=== PATIENT | female | born 1980 | race Caucasian/White ===

== ENCOUNTER 2019-11-25 10:25 | Emergency (ER) | payer OTHER, SELFPAY ==
[2019-11-25 10:47] VITALS: BP 131/74; PULSE 99; RESP 16; TEMP 36.9; O2SAT 95; BMI 32.3
--- NOTE | 2019-11-25 11:26 | ED.FEMALEGU ---
HPI - Female Genitourinary General Chief complaint: Urogenital-Female Stated complaint: VAGINAL ISSUES Time Seen by Provider: 11/25/19 11:02 Source: patient Mode of arrival: ambulatory Limitations: no limitations History of Present Illness MD elicited complaint: genital itching Onset (ago): year(s) (pt reports intermittently happening x 3 years worse resolves and returns shortly after worse within past week ) Location of symptoms: external genitalia Severity: moderate Severity scale (1-10): 5 Quality of pain: burning Consistency: constant Vaginal discharge: none Vaginal bleeding: none Urinary symptoms: Dysuria Exacerbating factors: urination Relieving factors: none Associated symptoms: denies other symptoms Treatment prior to arrival: other (prescribed topical vaginal creams ) Sexual activity: Yes Patient : No Related Data Home Medications Medication Instructions Recorded Confirmed betamethasone valerate applic TOPICAL BID 11/25/19 clobetasol TOPICAL BID 11/25/19 Previous Rx's Medication Instructions Recorded fluconazole [Diflucan] 150 mg PO DAILY 2 Days #2 tab 11/25/19 metronidazole [Flagyl] 500 mg PO BID 7 Days #14 tab 11/25/19 nitrofurantoin monohyd/m-cryst 100 mg PO BID 7 Days #14 cap 11/25/19 [Macrobid] valacyclovir [Valtrex] 1,000 mg PO DAILY 5 Days #5 tab 11/25/19 Allergies Allergy/AdvReac Type Severity Reaction Status Date / Time No Known Allergies Allergy Verified 11/25/19 10:47 Review of Systems Review of Systems: Yes all other systems are reviewed and are negative Constitutional: Constitutional: Denies chills and Denies fever(s) Eyes: Eyes: Reports as per HPI ENT: Reports as per HPI Cardiovascular: Cardiovascular: Reports as per HPI Respiratory: Respiratory: Reports as per HPI Gastrointestinal: Gastrointestinal: Denies abdominal pain, Denies diarrhea, Denies nausea and Denies vomiting Genitourinary: Genitourinary: Denies abnormal menses, Denies abnormal vaginal bleeding, Denies amenorrhea, Denies metrorrhagia, Denies hematuria, Denies urinary frequency, Denies difficulty voiding, Denies post void dribbling, Reports genital pruritis, Denies genital lesions, Denies dyspareunia, Reports dysuria, Denies pelvic pain, Denies sexual dysfunction, Denies flank pain, Denies urinary incontinence, Denies urinary hesitancy, Denies urinary urgency, Denies vaginal discharge, Denies vaginal dryness, Denies vaginal odor and Reports vaginal pruritus Musculoskeletal: Musculoskeletal: Reports as per HPI Integumentary/Breasts: Skin/Breast: Reports as per HPI Neurologic: Reports as per HPI Psychiatric: Psychiatric: Reports as per HPI Endocrine: Endocrine: Reports as per HPI Hematologic/Lymphatic: Hematologic/Lymphatic: Reports as per HPI Allergic/Immunologic: Allergic/Immunologic: Reports as per HPI PMFSH Past Medical History Medical History Burning reflux Tonsillectomy planned Surgical History H/O abdominoplasty History of gastric surgery Hx of breast reduction, elective LAP-BAND surgery status Tubal ligation status Social History Social History Alcohol intake: never Smoking Status: Never smoker Use of substances other than those prescribed or required for medical reasons: No Advance Directives: No Advance Directives Information Provided: No Physical Exam Vital Signs and I&O and Narrative: Vital Signs and I&O: Vital Signs Temp 98.4 F 11/25/19 14:00 Pulse 74 11/25/19 14:00 Resp 16 11/25/19 14:00 BP 119/71 11/25/19 14:00 Pulse Ox 100 11/25/19 14:00 Intake & Output 11/24/19 11/25/19 11/25/19 18:59 06:59 18:59 Weight 72.575 kg Body Mass Index 32.3 Const: General: cooperative, healthy appearing, comfortable, no acute distress, well developed, alert, awake and Physically active Nutritional Appearance: average body habitus Orientation/consciousness: patient oriented x3 Limitations: no limitations HENMT: Head: Yes normal to inspection Mouth: Normal oral and palatal mucosa present and moist mucous membranes Eyes: General: appearance normal, both eyes and all related structures Visual Barkley: normal visual barkley by confrontation Pupils: Equal, round and reactive pupils present EOM: EOMs intact bilaterally Neck: Neck: Yes normal visual inspection, Yes full ROM, Yes no lymphadenopathy, Yes no meningeal signs and Yes supple Resp: Effort & Inspection: normal respiratory effort Cardio: Rate: regular rate Rhythm: regular rhythm Heart sounds: S1 normal heart sound present and S2 normal heart sound present Peripheral pulses: Peripheral pulses 2+ throughout GI: Inspection: Yes normal to inspection Palpation (GI): Soft to palpation, nontender, no guarding, No hepatosplenomegaly present, no masses and No Rebound tenderness present Percussion: Yes normal to percussion Auscultation: normal bowel sounds Rectal Exam - Female: deferred : General: Yes bladder normal to palpation and Yes no CVA tenderness External Female Exam: externally tender (superficial excorations noted ) Speculum Exam - Vagina: normal palpation and normal vaginal discharge (white thick nonodorous ) Speculum Exam - Cervix: normal appearance of the cervix, normal palpation, Cervical os closed, no lesions and nontender Bimanual exam- vagina & uterus: normal bimanual exam, normal palpation, uterine size normal, bladder normal to palpation, consistency normal, normal palpation, uterine mobility normal, uterine shape normal, No Cervical tenderness present and no cervical motion tenderness Bimanual Exam- Adnexa, other: normal adnexae Back/Spine/Pelvis: Back: no CVA tenderness Skin: General skin exam: no rashes or lesions noted Neuro: General: patient oriented x3 and no meningeal signs Cranial nerves: Yes Equal, round and reactive pupils present Course Course Hospital Course: Pt c vaginal itching for a few days using prescribed creams that are not providing any symptomatic relief. Reports that this has been happening over 3 years and they do not believe to know why it is happening to the patient per patient. Denies any thoughts of STDs although would like to be tested and treated for everything today. On speculum exam patient was noted to have a thick white non odorous discharge. - Plan: Speculum exam with cultures for gonorrhea / chlamydia/Trichomonas / yeast/bacterial vaginosis collected along with a UA and urine . Will treat for bacterial vaginosis /yeast, gonorrhea and Chlamydia. Patient also admits to having history of herpes therefore would like a prescription if she has an outbreak. It does not appear that the patient has a outbreak at this time. Instructions to return if any new or worsening symptoms to follow-up with primary care provider/ OBGYN. Patient understands agrees with this plan. MDM - Female Genitourinary Lab Data Attestation: I reviewed the patient's lab results. Labs: Lab Results 11/25/19 11/25/19 Range/Units 13:36 13:37 Urine Color YELLOW Urine Appearance CLEAR Urine pH 6.0 (5.0-8.0) Ur Specific [place] >= 1.030 H (1.005-1.025) Urine Protein NEG (NEG-TRACE) MG/DL Urine Glucose (UA) NEG (NEG) MG/DL Urine Ketones NEG (NEG) MG/DL Urine Blood NEG (NEG) Urine Nitrite NEG (NEG) Ur Leukocyte Esterase NEG (NEG) Urine Test NEGATIVE (NEGATIVE) Discharge Plan Discharge Clinical Impression: Bacterial vaginosis, Urinary tract infection Patient Disposition: Home, Self-Care Instructions: Bacterial Vaginosis (ED), Sexually Transmitted Diseases (ED), Urinary Tract Infection in Women (ED) Prescriptions: New nitrofurantoin monohyd/m-cryst [Macrobid] 100 mg capsule 100 mg PO BID 7 Days Qty: 14 RF: 0 fluconazole [Diflucan] 150 mg tablet 150 mg PO DAILY 2 Days Qty: 2 RF: 0 valacyclovir [Valtrex] 1 gram tablet 1,000 mg PO DAILY 5 Days Qty: 5 RF: 0 metronidazole [Flagyl] 500 mg tablet 500 mg PO BID 7 Days Qty: 14 RF: 0 No Action betamethasone valerate 0.1 % cream topical BID RF: 0 clobetasol 0.05 % cream topical BID RF: 0
[2019-11-25 14:00] VITALS: BP 119/71; PULSE 74; RESP 16; TEMP 36.9; O2SAT 100
[2019-11-25 14:09] LABS: Glucose Urine UA NEG (NEG); Leukocyte Esterase Urine NEG (NEG); Nitrite Urine NEG (NEG); Specific Gravity - Urine >= 1.030 (1.005-1.025); Urine Blood NEG (NEG); Urine Ketones NEG (NEG); Urine Protein NEG (NEG-TRACE)
[2019-11-25 14:11] LABS: Appearance Urine CLEAR; Color Urine YELLOW
[2019-11-25 14:18] LABS: UPreg QC Valid YES; Urine Pregnancy NEGATIVE (NEGATIVE)
[2019-11-25] MEDS: Azithromycin 500 MG TABLET 1000 MG PO (15:09)
[2019-11-25] MEDS: cefTRIAXone sodium 250 MG VIAL IM (15:09)
[2019-11-25 18:49] LABS: CT PCR NOT DETECTED (Not Detect.); NG PCR NOT DETECTED (Not Detect.)
[2019-11-26 12:33] LABS: BV Int Neg Control Negative (Negative); BV Int Pos Control Positive (Positive)
== END 2019-11-25 15:30 | disposition home or self-care (01) ==
PROVIDERS: Physician Assistant Medical; Emergency Provider Emergency Medicine; PCP Internal Medicine
DX: N76.0 Acute vaginitis (principal); N39.0 Urinary tract infection, site not specified; Z98.84 Bariatric surgery status; Z79.899 Other long term (current) drug therapy
CPT/HCPCS: 36415; 81003; 81025; 87480; 87491; 87510; 87591; 87660; 96372; 99284; J0696

== ENCOUNTER → 2019-12-13 08:32 | Outpatient (BNVA) | payer OTHER, SELFPAY | PROVIDERS: PCP Internal Medicine; Referring Provider Internal Medicine; Visit Provider Advanced Practice Midwife | DX: A60.00 Herpesviral infection of urogenital system, unspecified (principal); L30.9 Dermatitis, unspecified; E66.9 Obesity, unspecified; Z68.32 Body mass index [BMI] 32.0-32.9, adult; Z71.3 Dietary counseling and surveillance | CPT/HCPCS: 99213 ==

== ENCOUNTER 2020-02-08 09:18 | Outpatient (REF) | payer OTHER, SELFPAY ==
[2020-02-09 09:41] LABS: BV Int Neg Control Negative (Negative); BV Int Pos Control Positive (Positive)
[2020-02-14 20:18] LABS: HPV mRNA E6/E7 rflx Not Detected (Not Detected)
== END 2020-02-08 09:19 | disposition home or self-care (01) ==
LOC: HO.LAB 09:18
PROVIDERS: PCP Internal Medicine; Visit Provider Advanced Practice Midwife
DX: Z01.419 Encounter for gynecological examination (general) (routine) without abnormal findings (principal); N63.10 Unspecified lump in the right breast, unspecified quadrant; N89.8 Other specified noninflammatory disorders of vagina
CPT/HCPCS: 87480; 87510; 87624; 87625; 87660; 88142

== ENCOUNTER 2020-03-13 12:49 | Outpatient (REF) | payer OTHER, SELFPAY ==
--- NOTE | 2020-03-13 12:53 | MM_ITS ---
EXAMINATION: MM DIAGNOSTIC DIGITAL BREAST TOMOSYNTHESIS, BILATERAL US DIAGNOSTIC ULTRASOUND BREAST, RIGHT CLINICAL INFORMATION: Clinical exam notes palpable area lateral right breast. History bilateral breast reduction 2018. Due for yearly. The lifetime risk of breast cancer based on the Tyrer-Cuzick Model is 10%. COMPARISON: Mammography: 02/26/2019 TECHNIQUE: Digital breast tomosynthesis is performed in both the craniocaudal and mediolateral oblique views along with computer-aided detection (CAD). Synthesized 2D images are generated from the tomosynthesis. Ultrasound right breast is targeted to the area of clinical concern outer breast. Grayscale imaging and color Doppler are performed without and with harmonics. Patient is able to direct attention to area of recent clinical exam concern. FINDINGS: There are scattered areas of fibroglandular density (ACR BI-RADS breast composition Category b). Parenchymal pattern is similar to prior exam. There is no interval mass or architectural abnormality. No developing density. There is some benign calcifications again seen anterior breast, some are dermal and consistent with the reduction mammoplasty. There are no significant changes. Ultrasound right breast demonstrates no cystic or solid mass or architectural abnormality. No skin thickening or edema tracking in the soft tissue planes. Results are discussed with the patient at time of visit. MM/MM diagnostic mammo BI IMPRESSION: 1. No mammographic evidence of malignancy. 2. No significant changes from prior exam. 3. Unremarkable targeted right breast ultrasound. ASSESSMENT: BI-RADS 2: Benign RECOMMENDATION: 1. Patient should be managed based on the clinical impression. If clinically indicated, further evaluation may be considered with surgical consult. Decision to proceed with biopsy should be based on clinical grounds and degree of clinical concern. 2. Otherwise, routine annual screening mammography. This patient's information was entered into a reminder system with a target due date for their next mammogram.
== END 2020-03-13 12:50 | disposition home or self-care (01) ==
LOC: HO.MAMMO 12:49
PROVIDERS: PCP Internal Medicine; Visit Provider Advanced Practice Midwife
DX: N63.0 Unspecified lump in unspecified breast (principal)
CPT/HCPCS: 76642; 77066

== ENCOUNTER → 2020-04-04 10:52 | Outpatient (BNVA) | payer OTHER, SELFPAY | PROVIDERS: PCP Internal Medicine; Visit Provider Advanced Practice Midwife | DX: Z76.89 Persons encountering health services in other specified circumstances (principal) | CPT/HCPCS: Q3014 ==

== ENCOUNTER 2020-04-18 10:21 | Emergency (ER) | payer OTHER, SELFPAY ==
[2020-04-18 10:38] VITALS: BP 116/88; PULSE 114; RESP 16; TEMP 38.1; O2SAT 96; BMI 32.3
--- NOTE | 2020-04-18 11:15 | ED_ITS ---
HPI - General Adult General Chief complaint: Upper Respiratory Symptoms <HUMBERTO Montoya - Last Filed: 04/18/20 11:40> Stated complaint: fever, body aches <HUMBERTO Montoya - Last Filed: 04/18/20 11:40> Time Seen by Provider: 04/18/20 11:02 <HUMBERTO Montoya - Last Filed: 04/18/20 11:40> Source: patient <HUMBERTO Montoya Last Filed: 04/18/20 11:40> Mode of arrival: ambulatory <HUMBERTO Montoya - Last Filed: 04/18/20 11:40> Limitations: no limitations <HUMBERTO Montoya Last Filed: 04/18/20 11:40> History of Present Illness HPI narrative: 39 y/o female presenting with fever, chills, body aches, muscle aches for the last 2-3 days. She reports a max temp of 103.1 at home. She has been taking Tylenol with improvement in the fevers. Her is home with similar symptoms but more mild. She is not coughing, has no SOB or chest pain. <HUMBERTO Montoya - Last Filed: 04/18/20 11:40> MD complaint: COVID symptoms <HUMBERTO Montoya - Last Filed: 04/18/20 11:40> Onset (ago): day(s) (2-3) <HUMBERTO Monotya - Last Filed: 04/18/20 11:40> Location: head, chest, back, upper extremity and lower extremity <HUMBERTO Montoya Last Filed: 04/18/20 11:40> Radiation: non-radiation <HUMBERTO Montoya Last Filed: 04/18/20 11:40> Severity: moderate <HUMBERTO Montoya Last Filed: 04/18/20 11:40> Quality: aching <HUMBERTO Montoya Last Filed: 04/18/20 11:40> Pain Consistency: constant <HUMBERTO Montoya Last Filed: 04/18/20 11:40> Relieving factors: medication <HUMBERTO Montoya Last Filed: 04/18/20 11:40> Associated symptoms: fever/chills, headaches, loss of appetite and weakness <HUMBERTO Montoya - Last Filed: 04/18/20 11:40> Treatments prior to arrival: NSAID <HUMBERTO Montoya - Last Filed: 04/18/20 11:40> Related Data Home medications: Home Medications Medication Instructions Recorded Confirmed clobetasol TOPICAL BID 11/25/19 hydroxyzine pamoate 25 mg capsule 25 mg PO BEDTIME PRN 02/08/20 Previous Rx's Medication Instructions Recorded fluconazole [Diflucan] 150 mg PO DAILY 2 Days #2 tab 11/25/19 metronidazole [Flagyl] 500 mg PO BID 7 Days #14 tab 11/25/19 nitrofurantoin monohyd/m-cryst 100 mg PO BID 7 Days #14 cap 11/25/19 [Macrobid] valacyclovir [Valtrex] 1,000 mg PO DAILY 5 Days #5 tab 11/25/19 omeprazole 20 mg capsule,delayed 40 mg PO DAILY #180 cap 12/08/19 release hydrocortisone valerate 0.2 % 1 applic TOPICAL ONCE #15 g 12/13/19 topical ointment valacyclovir 500 mg tablet 500 mg PO BID #30 tab 12/13/19 betamethasone valerate 0.1 % 1 appl TOPICAL BID #45 g 02/08/20 topical cream phentermine 37.5 mg capsule 37.5 mg PO DAILY PRN 30 Days #25 03/12/20 cap <HUMBERTO Montoya - Last Filed: 04/18/20 11:40> Allergies/adverse reactions: Allergies Allergy/AdvReac Type Severity Reaction Status Date / Time No Known Allergies Allergy Verified 02/08/20 09:28 <HUMBERTO Montoya - Last Filed: 04/18/20 11:40> Review of Systems Review of Systems: Constitutional: + Fever, + Chills ENT/Mouth: + sore throat, No Rhinorrhea, No Swallowing Difficulty Eyes: No Eye Pain, No Swelling, No Redness Cardiovascular: No Chest Pain, No SOB, No Orthopnea, No Edema Respiratory: No Cough, No Sputum, No Wheezing, No dyspnea Gastrointestinal: No Nausea, No Vomiting, No Diarrhea, No abdominal Pain Genitourinary: No Dysuria, No Urinary Frequency, No Hematuria Musculoskeletal: + joint pain, + Myalgias Skin: No Skin Lesions, No rash Neuro: No Weakness, No Numbness, No Dizziness, + Headache Heme/Lymph: No Bruising, No Lymphadenopathy <HUMBERTO Montoya - Last Filed: 04/18/20 11:40> [facility] Past Medical History Medical History: Medical History Burning reflux Tonsillectomy planned <HUMBERTO Montoya - Last Filed: 04/18/20 11:40> Surgical History: Surgical History H/O abdominoplasty History of bilateral breast reduction surgery History of section History of gastric surgery History of hernia repair History of tonsillectomy Hx of breast reduction, elective LAP-BAND surgery status Tubal ligation status <HUMBERTO Montoya - Last Filed: 04/18/20 11:40> Family History Family History: Family History Father Stroke Mother Lung cancer Maternal Grandmother Throat cancer Lung cancer Paternal Grandmother Stomach cancer Maternal Grandfather No problems noted. Paternal Grandfather No problems noted. Maternal Aunt Ovarian cancer Paternal Aunt Ovarian cancer Breast cancer <HUMBERTO Montoya - Last Filed: 04/18/20 11:40> Social History Social History: Social History Alcohol intake: never Smoking Status: Never smoker Smoked in Last 30 Days: No Use of substances other than those prescribed or required for medical reasons: No Advance Directives: No Advance Directives Information Provided: No <HUMBERTO Montoya - Last Filed: 04/18/20 11:40> Physical Exam Vital Signs: Vital Signs: Last Vital Signs Temp 100.6 F H 04/18/20 10:38 Pulse 114 H 04/18/20 10:38 Resp 16 04/18/20 10:38 BP 116/88 04/18/20 10:38 Pulse Ox 96 04/18/20 10:38 Body Mass Index 32.3 Appearance: Alert. Oriented X3. Appears unwell. Eyes: Pupils equal, round and reactive to light. ENT: Pharynx normal. Neck: Normal inspection. Neck supple. CVS: tachycardic, regular rhythm. Pulses normal. Respiratory: No respiratory distress. Breath sounds normal. Abdomen: Soft and nontender. +BS x4 Skin: Skin warm and dry. Normal skin color. Normal skin turgor. No rashes. Extremities: No lower extremity edema. Neuro: Oriented X 3. No motor deficit. No sensory deficit. <HUMBERTO Montoya - Last Filed: 04/18/20 11:40> Vital Signs: Last Vital Signs Temp 100.6 F H 04/18/20 10:38 Pulse 114 H 04/18/20 10:38 Resp 16 04/18/20 10:38 BP 116/88 04/18/20 10:38 Pulse Ox 96 04/18/20 10:38 Body Mass Index 32.3 <Robe Crystal MD - Last Filed: 05/08/20 07:53> Course Course Course Narrative: 39 y/o female presenting with COVID symptoms, fever to 103.1 at home. low grade fever here with associated tachycardia. She is not SOB or having any chest pain. COVID is positive. She was counseled on her diagnosis, management and warning signs to return to the hospital. She is stable for d/c. <HUMBERTO Montoya - Last Filed: 04/18/20 11:40> I have reviewed the chart <Robe Crystal MD - Last Filed: 05/08/20 07:53> Medical Decision Making Lab Data Labs: Lab Results 04/18/20 Range/Units 11:19 COVID-19 (DEENA) Positive A (Negative) COVID-19 Clin Com See Note <HUMBERTO Montoya - Last Filed: 04/18/20 11:40> Lab Results 04/18/20 Range/Units 11:19 COVID-19 (DEENA) Positive A (Negative) COVID-19 Clin Com See Note <Robe Crystal MD - Last Filed: 05/08/20 07:53> Critical Care Time Critical Care Time Critical Care Time: No <HUMBERTO Montoya - Last Filed: 04/18/20 11:40> Discharge Plan Discharge Clinical Impression: COVID-19 <HUMBERTO Montoya - Last Filed: 04/18/20 11:40> Patient Disposition: Home, Self-Care <HUMBERTO Montoya - Last Filed: 04/18/20 11:40> Instructions: COVID-19 (Coronavirus Disease 2019) (ED) <HUMBERTO Montoya Last Filed: 04/18/20 11:40> Additional Instructions: You were found to be COVID-19 POSITIVE today. Your oxygen levels were normal. Rest. Drink plenty of fluids. Do not go out in public for the next 10 days. Take over the counter cold/flu medications as needed for your symptoms. Take Tylenol and/or Motrin as needed for fevers and body aches. Follow up with your doctor this week. If you shortness of breath worsens , if you develop difficulty breathing or any other concerning symptom come back to the ER for further evaluation. <HUMBERTO Montoya - Last Filed: 04/18/20 11:40> Prescriptions: No Action omeprazole 20 mg capsule,delayed release(DR/EC) 40 mg PO DAILY Qty: 180 RF: 2 phentermine 37.5 mg capsule 37.5 mg PO DAILY PRN (Reason: weight gain) 30 Days Qty: 25 RF: 0 clobetasol 0.05 % cream topical BID RF: 0 nitrofurantoin monohyd/m-cryst [Macrobid] 100 mg capsule 100 mg PO BID 7 Days Qty: 14 RF: 0 fluconazole [Diflucan] 150 mg tablet 150 mg PO DAILY 2 Days Qty: 2 RF: 0 valacyclovir [Valtrex] 1 gram tablet 1,000 mg PO DAILY 5 Days Qty: 5 RF: 0 metronidazole [Flagyl] 500 mg tablet 500 mg PO BID 7 Days Qty: 14 RF: 0 hydrocortisone valerate 0.2 % ointment 1 applic topical ONCE Qty: 15 RF: 1 valacyclovir [Valtrex] 500 mg tablet 500 mg PO BID Qty: 30 RF: 1 hydroxyzine pamoate 25 mg capsule 25 mg PO BEDTIME PRNRF: 0 betamethasone valerate 0.1 % cream 1 appl topical BID Qty: 45 RF: 1 <HUMBERTO Montoya Last Filed: 04/18/20 11:40> Interventions: ED Discharge Assessment Last Done: 04/18/20 11:37 <HUMBERTO Montoya - Last Filed: 04/18/20 11:40> Discharge Date/Time: 04/18/20 11:42 <HUMBERTO Montoya - Last Filed: 04/18/20 11:40>
[2020-04-18 11:34] LABS: COVID-19 Test Positive (Negative)
== END 2020-04-18 11:42 | disposition home or self-care (01) ==
PROVIDERS: Physician Assistant; Emergency Provider Emergency Medicine; PCP Internal Medicine
DX: U07.1 COVID-19 (principal); R50.9 Fever, unspecified; R00.0 Tachycardia, unspecified
CPT/HCPCS: 36415; 87635; 99282; 99284

== ENCOUNTER 2020-12-07 10:14 | Outpatient (REF) | payer OTHER, SELFPAY ==
[2020-12-07 10:38] LABS: MANUAL DIFF FLAG NO
[2020-12-07 11:06] LABS: Basophils Absolute Auto 0.1 X10*3/uL (0.0-0.2); Basophils Percent Auto 0.6 % (0-2); Eosinophils Percent Auto 0.5 % (0-4); Hematocrit 39.1 % (37-47); Hemoglobin 12.5 g/dl (12.0-16.0); Imm Gran Abs Auto 0.05 X10*3/uL (0.00-0.03); Imm Gran Pct Auto 0.6 % (0.0-0.4); Lymphocytes Absolute Auto 2.1 X10*3/uL (1.2-4.9); Lymphocytes Percent Auto 25.7 % (20-40); Mean Corpuscular Hemoglobin 28.3 pg (27.0-33.0); Mean Corpuscular Volume 88.5 fL (80-98); Mean Platelet Volume 10.2 fL (9.4-12.3); Monocytes Absolute Auto 0.6 X10*3/uL (0.1-1.2); Monocytes Percent Auto 7.4 % (2-11); Neutrophils Absolute Auto 5.3 X10*3/uL (2.0-8.3); Neutrophils Percent Auto 65.2 % (45-73); Platelet Count 347 X10*3/uL (160-400); Red Blood Count 4.42 X10*6/uL (4.20-5.50); Red Cell Distribution Width 14.6 % (11.0-16.0); White Blood Count 8.1 X10*3/uL (4.8-10.8)
[2020-12-07 11:32] LABS: Alanine Aminotransferase 15 U/L (0-31); Albumin Level 4.2 g/dL (3.5-5.0); Alkaline Phosphatase 46 U/L (39-117); Anion Gap 13 (12-20); Aspartate Amino Transferase 15 U/L (5-31); Bilirubin Total 0.5 mg/dL (0.0-1.0); Blood Urea Nitrogen 10 mg/dL (9-16); Calcium 9.9 mg/dL (8.4-10.2); Carbon Dioxide 25 mmol/L (22-29); Chloride 107 mmol/L (96-108); Cholesterol 162 mg/dL; Estimated Glomerular Filt Rate > 60; Glucose Fasting 88 mg/dL (60-99); HDL Cholesterol 40 mg/dL; Iron 105 mcg/dL (30-160); LDL Cholesterol Calculated 94 mg/dl; Percent Iron Saturation 27 % (15-50); Potassium 4.6 mmol/L (3.3-5.1); Sodium 140 mmol/L (135-145); Total Iron Binding Capacity 396 mcg/dL (228-428); Total Protein 6.7 g/dL (6.5-8.0); Triglycerides 143 mg/dL; Unsaturated Iron Binding 291 ug/dL
[2020-12-13 16:15] LABS: Vitamin D 25-OH, D2 <4 ng/mL; Vitamin D 25-OH, D3 32 ng/mL; Vitamin D 25-OH, Total 32 ng/mL (30-100)
== END 2020-12-07 10:15 | disposition home or self-care (01) ==
LOC: HO.LAB 10:14
PROVIDERS: Internal Medicine; PCP Student in an Organized Health Care Education/Training Program; Visit Provider Student in an Organized Health Care Education/Training Program
DX: E66.9 Obesity, unspecified (principal); Z68.32 Body mass index [BMI] 32.0-32.9, adult; E78.5 Hyperlipidemia, unspecified; D64.9 Anemia, unspecified; E55.9 Vitamin D deficiency, unspecified
CPT/HCPCS: 36415; 80053; 80061; 82306; 83540; 85025

== ENCOUNTER 2021-03-07 14:05 | Outpatient (REF) | payer OTHER, SELFPAY ==
--- NOTE | ~2021-03-07 | XR_ITS ---
EXAMINATION: XR SHOULDER, RIGHT XR CERVICAL SPINE XR FOOT, LEFT INDICATION: Radiculopathy. COMPARISON: None. TECHNIQUE: 4 views of the right shoulder, 3 views of the cervical spine, 3 views of the left foot. FINDINGS: Four views of the right shoulder do not demonstrate acute fracture or dislocation. No acute finding. No bony erosion or osteopenia. No significant degenerative changes. Three views of the cervical spine demonstrate scoliosis convex right. There is evidence of early degeneration at C5-C6 and C6-C7 with bony spurring anterior and posterior. No obvious listhesis. No compression injury. Three views of the left foot do not demonstrate evidence for an acute fracture or dislocation. No bony erosion. Moderate spurring at the insertion of the plantar aponeuroses on the calcaneus. XR/XR shoulder RT min 2V IMPRESSION: Some mild findings, as described above. Scoliosis in the cervical spine with some early degenerative changes. No listhesis or compression injury.
--- NOTE | ~2021-03-07 | XR_ITS ---
EXAMINATION: XR SHOULDER, RIGHT XR CERVICAL SPINE XR FOOT, LEFT INDICATION: Radiculopathy. COMPARISON: None. TECHNIQUE: 4 views of the right shoulder, 3 views of the cervical spine, 3 views of the left foot. FINDINGS: Four views of the right shoulder do not demonstrate acute fracture or dislocation. No acute finding. No bony erosion or osteopenia. No significant degenerative changes. Three views of the cervical spine demonstrate scoliosis convex right. There is evidence of early degeneration at C5-C6 and C6-C7 with bony spurring anterior and posterior. No obvious listhesis. No compression injury. Three views of the left foot do not demonstrate evidence for an acute fracture or dislocation. No bony erosion. Moderate spurring at the insertion of the plantar aponeuroses on the calcaneus. XR/XR cervical spine 3V IMPRESSION: Some mild findings, as described above. Scoliosis in the cervical spine with some early degenerative changes. No listhesis or compression injury.
--- NOTE | ~2021-03-07 | XR_ITS ---
EXAMINATION: XR SHOULDER, RIGHT XR CERVICAL SPINE XR FOOT, LEFT INDICATION: Radiculopathy. COMPARISON: None. TECHNIQUE: 4 views of the right shoulder, 3 views of the cervical spine, 3 views of the left foot. FINDINGS: Four views of the right shoulder do not demonstrate acute fracture or dislocation. No acute finding. No bony erosion or osteopenia. No significant degenerative changes. Three views of the cervical spine demonstrate scoliosis convex right. There is evidence of early degeneration at C5-C6 and C6-C7 with bony spurring anterior and posterior. No obvious listhesis. No compression injury. Three views of the left foot do not demonstrate evidence for an acute fracture or dislocation. No bony erosion. Moderate spurring at the insertion of the plantar aponeuroses on the calcaneus. XR/XR foot LT 2V IMPRESSION: Some mild findings, as described above. Scoliosis in the cervical spine with some early degenerative changes. No listhesis or compression injury.
== END 2021-03-07 14:06 | disposition home or self-care (01) ==
LOC: HO.XRAY 14:05
PROVIDERS: PCP Internal Medicine; Visit Provider Internal Medicine
DX: M54.12 Radiculopathy, cervical region (principal); M75.41 Impingement syndrome of right shoulder; M79.672 Pain in left foot
CPT/HCPCS: 72040; 73030; 73620

== ENCOUNTER 2021-04-13 13:01 | Emergency (ER) | payer OTHER, SELFPAY ==
--- NOTE | 2021-04-13 | ECG_ITS ---
Test Reason : chest tightness Blood Pressure : / mmHG Vent. Rate : 121 BPM Atrial Rate : 121 BPM P-R Int : 136 ms QRS Dur : 070 ms QT Int : 346 ms P-R-T Axes : 073 056 043 degrees QTc Int : 491 ms Sinus tachycardia Nonspecific ST and T wave abnormality When compared to the previous EKG of No significant changes seen Referred By: Generic ED Physician Electronically Signed By:HARSH DIMAS MD
--- NOTE | ~2021-04-13 | XR_ITS ---
EXAMINATION: XR CHEST CLINICAL INFORMATION: Cough COMPARISON: Previous chest x-ray most recent June 2017 TECHNIQUE: 2 views of the chest were obtained. FINDINGS: The cardiac and mediastinal contours are stable. The lungs are clear. There is no pleural effusion or pneumothorax. There is mild curvature of the midthoracic spine to the right. Gastric lap band is no longer seen. There are surgical clips under the left hemidiaphragm. XR/XR chest 2V IMPRESSION: No evidence for acute disease in the chest.
[2021-04-13 13:16] VITALS: BP 137/72; PULSE 119; RESP 16; TEMP 36.9; O2SAT 97; BMI 33.5
--- NOTE | 2021-04-13 13:33 | ED_ITS ---
HPI - URI/Sore Throat General Chief Complaint: Upper Respiratory Symptoms Stated Complaint: Fever/Sore throat/D[place]reah Time Seen by Provider: 04/13/21 13:32 Source: patient Mode of arrival: ambulatory Limitations: no limitations History of Present Illness HPI Narrative: 40-year-old female had sore throat yesterday and had positive home test COVID. No fever, no chills, no sick contact. 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 Related Data Previous Rx's Medication Instructions Recorded omeprazole 20 mg capsule,delayed 40 mg PO DAILY #180 cap 07/31/20 release phentermine 37.5 mg capsule 37.5 mg PO DAILY PRN 30 Days #25 01/26/21 cap hydroxyzine pamoate 25 mg capsule 25 mg PO BEDTIME PRN 90 Days #90 04/01/21 cap ferrous sulfate 325 mg (65 mg 325 mg PO DAILY 90 Days #90 tab 04/02/21 iron) tablet Allergies Allergy/AdvReac Type Severity Reaction Status Date / Time No Known Allergies Allergy Verified 03/07/21 11:05 Review of Systems Review of Systems: All other systems are reviewed and are negative Constitutional: Reports as per HPI and Reports no additional constitutional complaints Eyes: Reports as per HPI and Reports no additional eye complaints Reports system reviewed and no additional complaints, except as documented Cardiovascular: Reports as per HPI and Reports no additional cardiovascular complaints Respiratory: Reports as per HPI and Reports no additional respiratory complaints Gastrointestinal: Reports as per HPI and Reports no additional gastrointestinal complaints Genitourinary: Reports no additional female genitourinary complaints Musculoskeletal: Reports no additional musculoskeletal complaints Skin/Breast: Reports system reviewed and no additional complaints, except as docu Psychiatric: Reports no additional psychiatric complaints Endocrine: Reports no additional endocrine complaints Hematologic/Lymphatic: Reports no additional hematologic/lymphatic complaints Allergic/Immunologic: Reports no additional allergic/immunologic complaints Reports system reviewed and no additional complaints, except as documented and Reports Abnormal speech present [facility] Past Medical History Medical History Burning reflux Class 1 obesity with body mass index (BMI) of 32.0 to 32.9 in adult GERD (gastroesophageal reflux disease) Hand numbness Hand pain Iron deficiency anemia due to chronic blood loss Left foot pain Leg pain Right arm pain Scoliosis Skin lesions Tonsillectomy planned Surgical History H/O abdominoplasty History of bilateral breast reduction surgery History of section History of gastric surgery History of hernia repair History of tonsillectomy Hx of breast reduction, elective LAP-BAND surgery status Tubal ligation status Family History Family History Father Stroke Mother Lung cancer Maternal Grandmother Throat cancer Lung cancer Paternal Grandmother Stomach cancer Maternal Grandfather No problems noted. Paternal Grandfather No problems noted. Maternal Aunt Ovarian cancer Paternal Aunt Ovarian cancer Breast cancer Social History Social History Housing: House Alcohol intake: never Patient Tobacco Use Status: Never used Tobacco e-Cigarette/Vaping Use: Never Used Second Hand Smoke Exposure: No Advance Directives: No Advance Directives Information Provided: No Patient : No service: No Current occupational status: disabled Physical Exam Vital Signs: Vital Signs: Last Vital Signs Temp 98.5 F 04/13/21 13:16 Pulse 119 H 04/13/21 13:16 Resp 16 04/13/21 13:16 BP 137/72 04/13/21 13:16 Pulse Ox 97 04/13/21 13:16 BMI result Body Mass Index 33.5 Vital signs have been reviewed as appeared to be correct. Blood pressure normal. Heart rate elevated. Respiration rate normal. Temperature normal. Oxygen saturation normal. Appearance: Alert. Oriented X3. No acute distress. Head: Normal external exam. Normocephalic. Atraumatic. No Chin signs noted. No raccoon eyes noted Eyes: PERRLA. EOMI. Conjunctiva and sclera normal. Eyelids normal. ENT: TM's Normal. Pharynx normal. Uvula midline. Moist mucous membranes. No trismus noted. No drooling noted. No muffled voice noted. Neck: Normal inspection. Neck supple. FROM. No adenopathy. Thyroid Normal. No meningeal signs. No neck mass noted. CVS: Normal heart rate and rhythm. Heart sound normal. No murmurs noted. Pulses normal throughout. Respiratory: No respiratory distress. Painless inspiration. Breath sounds normal. No wheezes/rales/rhonchi noted. Chest nontender. No accessory muscle usage noted or decreased air movement noted. Abdomen: Soft and nontender. Bowel sounds normal in all 4 quadrants. No distention noted. No organomegaly noted. No visible injury noted. Back: No CVA tenderness. Full range of motion noted. Skin: Skin warm and dry. Normal skin color. Normal skin turgor. No rashes/lesions/lacerations noted. Extremities: No lower extremity edema. Extremities exhibit normal range of motion. Extremities nontender. Neuro: Oriented X 3. Cranial nerve exam: II-XII are grossly intact No motor deficit. No sensory deficit. Reflexes normal. Course Course Course Narrative: Assessment and plan. 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 MDM - URI/Sore Throat Imaging Data Chest x-ray: Attestation: I personally reviewed and interpreted this imaging study as follows: Radiologist's impression: No acute thoracic pathology. Discharge Plan Discharge Clinical Impression: COVID-19 Patient Disposition: Home, Self-Care Instructions: COVID-19 (Coronavirus Disease 2019) (ED) Prescriptions: No Action omeprazole 20 mg capsule,delayed release(DR/EC) 40 mg PO DAILY Qty: 180 2RF hydroxyzine pamoate 25 mg capsule 25 mg PO BEDTIME PRN (Reason: itching) 90 Days Qty: 90 0RF ferrous sulfate 325 mg (65 mg iron) tablet 325 mg PO DAILY 90 Days Qty: 90 0RF phentermine 37.5 mg capsule 37.5 mg PO DAILY PRN (Reason: weight gain) 30 Days Qty: 25 0RF Referrals: Catrina Montanez MD [Primary Care Provider] - 2 days Stand Alone Forms: Work/School Release
== END 2021-04-13 14:14 | disposition home or self-care (01) ==
PROVIDERS: Emergency Provider Emergency Medicine; PCP Internal Medicine
DX: U07.1 COVID-19 (principal)
CPT/HCPCS: 71046; 93005; 99283; 99284

== ENCOUNTER → 2021-06-18 13:22 | Outpatient (BNVA) | payer OTHER, SELFPAY | PROVIDERS: PCP Internal Medicine; Referring Provider Internal Medicine; Visit Provider Physician Assistant Surgical | DX: E66.9 Obesity, unspecified (principal); Z68.34 Body mass index [BMI] 34.0-34.9, adult; Z98.84 Bariatric surgery status; Z71.3 Dietary counseling and surveillance | CPT/HCPCS: 99212 ==

== ENCOUNTER 2021-07-10 08:44 | Outpatient (REF) | payer OTHER, SELFPAY ==
--- NOTE | ~2021-07-10 | MM_ITS ---
EXAMINATION: MM DIAGNOSTIC DIGITAL BREAST TOMOSYNTHESIS, BILATERAL US DIAGNOSTIC ULTRASOUND BREAST, RIGHT CLINICAL INFORMATION: 40-year-old with pea-sized nodule noted by patient. Prior history bilateral reduction mammoplasty, 2018. TC score 14%. COMPARISON: Mammography: 03/13/2020, 02/26/2019. TECHNIQUE: Digital breast tomosynthesis is performed in both the craniocaudal and mediolateral oblique views along with computer-aided detection (CAD). Synthesized 2D images are generated from the tomosynthesis. Ultrasound right breast is targeted to the area of clinical concern outer breast. Patient is able to point to area of concern at time of imaging. Grayscale imaging and color Doppler are performed without and with harmonics. FINDINGS: There are scattered areas of fibroglandular density (ACR BI-RADS breast composition Category b). Parenchymal pattern is similar to prior studies. There is no developing density or interval mass or architectural abnormality. No skin thickening or coarsening of the Kevin's ligaments. The axilla are unremarkable. There are no significant changes. Ultrasound demonstrates no cystic or solid mass. There is no architectural abnormality or focal duct ectasia. No skin thickening or edema tracking in soft tissue planes. Results are discussed with the patient at time of visit. There is no mammographic or ultrasound correlate for patient's symptoms. Patient should be managed based on the clinical impression. If clinically indicated, further evaluation may be considered with surgical consult. Decision to proceed with biopsy should be based on clinical grounds and degree of clinical concern. MM/MM tomosynthesis diagnostic BI IMPRESSION: -No mammographic evidence of malignancy. -Unremarkable right breast ultrasound. ASSESSMENT: BI-RADS 1: Negative RECOMMENDATION: 1. Patient should be managed based on the clinical impression. If clinically indicated, further evaluation may be considered with surgical consult. Decision to proceed with biopsy should be based on clinical grounds and degree of clinical concern. 2. Otherwise, routine annual screening mammography. This patient's information was entered into a reminder system with a target due date for their next mammogram.
== END 2021-07-10 08:45 | disposition home or self-care (01) ==
LOC: HO.MAMMO 08:44
PROVIDERS: PCP Internal Medicine; Visit Provider Nurse Practitioner Family
DX: N64.4 Mastodynia (principal); N63.13 Unspecified lump in the right breast, lower outer quadrant
CPT/HCPCS: 76642; 77062; 77066

== ENCOUNTER 2021-07-24 08:05 | Outpatient (REF) | payer OTHER, SELFPAY ==
--- NOTE | 2021-07-24 08:11 | EMG_ITS ---
This is a 40-year-old woman with a 3 month history of pain, numbness, and tingling in both upper extremities, right greater than left. Has nocturnal symptoms. No other medical problems. PHYSICAL EXAMINATION: On examination, she is alert, oriented with normal intellectual functions. Normal neurological examination. Normal reflexes. No Phalen or Tinel sign. IMPRESSION: Carpal tunnel syndrome. Nerve conduction EMG study: Moderate carpal tunnel syndrome on the right, early carpal tunnel syndrome on the left. Normal EMG of the right C5-T1 innervated muscles. MD ISHAN Patel/DIANNA / [id number]
== END 2021-07-24 08:06 | disposition home or self-care (01) ==
LOC: HO.NEURO 08:05
PROVIDERS: PCP Internal Medicine; Visit Provider Internal Medicine
DX: R20.0 Anesthesia of skin (principal)
CPT/HCPCS: 95885; 95913

== ENCOUNTER → 2021-07-30 08:41 | Outpatient (BNVA) | payer OTHER, SELFPAY | PROVIDERS: PCP Internal Medicine; Referring Provider Internal Medicine; Visit Provider Physician Assistant Surgical | DX: E66.9 Obesity, unspecified (principal); Z68.33 Body mass index [BMI] 33.0-33.9, adult; Z98.84 Bariatric surgery status | CPT/HCPCS: 99212 ==

== ENCOUNTER 2021-11-13 09:51 | Outpatient (REF) | payer OTHER, SELFPAY ==
[2021-11-13 10:05] LABS: MANUAL DIFF FLAG NO
[2021-11-13 10:51] LABS: Basophils Absolute Auto 0.1 X10*3/uL (0.0-0.2); Basophils Percent Auto 0.7 % (0-2); Eosinophils Absolute Auto 0.1 X10*3/uL (0.0-0.4); Eosinophils Percent Auto 0.7 % (0-4); Hematocrit 39.2 % (37.0-47.0); Hemoglobin 12.5 g/dl (12.0-16.0); Imm Gran Abs Auto 0.04 X10*3/uL (0.00-0.03); Imm Gran Pct Auto 0.5 % (0.0-0.4); Lymphocytes Absolute Auto 1.8 X10*3/uL (1.2-4.9); Lymphocytes Percent Auto 21.7 % (20-40); Mean Corpuscular HGB Conc 31.9 g/dl (31.0-35.0); Mean Corpuscular Hemoglobin 27.9 pg (27.0-33.0); Mean Corpuscular Volume 87.5 fL (80.0-98.0); Mean Platelet Volume 10.1 fL (9.4-12.3); Monocytes Absolute Auto 0.6 X10*3/uL (0.1-1.2); Monocytes Percent Auto 6.6 % (2-11); Neutrophils Absolute Auto 5.8 x10*3/uL (2.0-8.3); Neutrophils Percent Auto 69.8 % (45-73); Platelet Count 398 X10*3/uL (160-400); Red Blood Count 4.48 X10*6/uL (4.20-5.50); Red Cell Distribution Width 13.7 % (11.0-16.0); White Blood Count 8.3 X10*3/uL (4.8-10.8)
[2021-11-13 11:01] LABS: Estimated Average Glucose 108 mg/dL; Hemoglobin A1c % 5.4 %
[2021-11-13 11:19] LABS: Alanine Aminotransferase 28 U/L (0-31); Albumin Level 4.6 g/dL (3.5-5.0); Alkaline Phosphatase 54 U/L (39-117); Anion Gap 16 (12-20); Aspartate Amino Transferase 27 U/L (5-31); Bilirubin Total 0.5 mg/dL (0.0-1.0); Blood Urea Nitrogen 12 mg/dL (9-16); C Reactive Protein 0.19 mg/dL (< or = 0.50); Carbon Dioxide 25 mmol/L (22-29); Chloride 102 mmol/L (96-108); Cholesterol 207 mg/dL; Estimated Glomerular Filt Rate > 60; Glucose Fasting 92 mg/dL (60-99); HDL Cholesterol 52 mg/dL; Iron 91 mcg/dL (30-160); LDL Cholesterol Calculated 128 mg/dl; Percent Iron Saturation 20 % (15-50); Potassium 4.4 mmol/L (3.3-5.1); Sodium 139 mmol/L (135-145); Total Iron Binding Capacity 461 mcg/dL (228-428); Total Protein 7.5 g/dL (6.5-8.0); Triglycerides 139 mg/dL; Unsaturated Iron Binding 370 ug/dL
[2021-11-13 11:45] LABS: Ferritin 49 ng/mL (10-250); TSH reflex Free T4 1.15 uIU/mL (0.32-4.0); Vitamin D 25-OH Total 43.5 ng/mL (>30)
[2021-11-13 12:01] LABS: Folate > 20.0 ng/mL (> or = 4.0); Vitamin B12 768 pg/mL (200-900)
[2021-11-13 12:16] LABS: Insulin 20 uU/mL (2-29)
[2021-11-14 14:57] LABS: PTHI 48 pg/mL (16-77)
[2021-11-17 16:06] LABS: Zinc 76 mcg/dL (60-130)
[2021-11-18 06:21] LABS: Vitamin B1 19 nmol/L (8-30)
[2021-11-19 17:27] LABS: Vitamin A 59 mcg/dL (38-98)
== END 2021-11-13 09:52 | disposition home or self-care (01) ==
LOC: HO.LAB 09:51
PROVIDERS: Absent Provider Internal Medicine; PCP Internal Medicine; Visit Provider Physician Assistant Surgical
DX: Z00.00 Encounter for general adult medical examination without abnormal findings (principal); E66.9 Obesity, unspecified; Z90.3 Acquired absence of stomach [part of]
CPT/HCPCS: 36415; 80048; 80053; 80061; 82306; 82607; 82728; 82746; 83036; 83525; 83540; 83970; 84425; 84443; 84590; 84630; 85025; 86140; 99212

== ENCOUNTER → 2022-07-30 13:15 | Outpatient (BNVA) | payer OTHER, SELFPAY | PROVIDERS: PCP Internal Medicine; Visit Provider Physician Assistant Surgical | DX: E66.9 Obesity, unspecified (principal); K21.9 Gastro-esophageal reflux disease without esophagitis; Z90.3 Acquired absence of stomach [part of]; Z68.35 Body mass index [BMI] 35.0-35.9, adult | CPT/HCPCS: 99212 ==

== ENCOUNTER → 2022-08-07 08:42 | Outpatient (BNVA) | payer OTHER, SELFPAY | PROVIDERS: PCP Internal Medicine; Visit Provider Advanced Practice Midwife ==

== ENCOUNTER 2022-09-19 11:31 | Emergency (ER) | payer OTHER, SELFPAY ==
[2022-09-19 11:36] VITALS: BP 141/98; PULSE 100; RESP 18; TEMP 37.1; O2SAT 98; BMI 34.7
--- NOTE | 2022-09-19 11:37 | ED_ITS ---
HPI - General Adult General Chief complaint: Headache Stated complaint: Headache Time Seen by Provider: 09/19/22 13:59 Source: patient Mode of arrival: ambulatory Limitations: no limitations History of Present Illness HPI narrative: 41-year-old female with history of migraines, obesity, scoliosis, iron deficiency anemia, GERD presenting today with a complaint of migraine x3 days. Headache is continuous and pounding in character and isolated to the occipital region, no radiation, rates it 10/10 . Pain is worse upon lying down and relieved upon sitting up. She states this feels similar to her typical migrain es however is lasting longer and has not been responsive to her medications (sumatriptan and topiramate). Associated symptoms include blurred vision in her right eye intermittently, photophobia, nausea without vomiting and dizziness. Denies scalp tenderness, jaw claudication, double vision, neck stiffness, fever/chills, chest pain, shortness of breath. Related Data Home Medications Medication Instructions Recorded Confirmed celebrate bariatric MVI PO DAILY 06/18/21 07/30/22 celebrate Alhaji + D PO BID 07/30/21 07/30/22 Previous Rx's Medication Instructions Recorded omeprazole 20 mg capsule,delayed 40 mg PO DAILY #180 caps 01/03/22 release ferrous sulfate 325 mg (65 mg 325 mg PO DAILY 90 days #90 tabs 06/29/22 iron) tablet hydroxyzine pamoate 25 mg capsule 25 mg PO BEDTIME PRN itching 90 06/29/22 days #90 caps sucralfate 100 mg/mL oral 10 ml PO BID #414 mL 07/30/22 suspension topiramate 25 mg tablet 25 mg PO BEDTIME 90 days #90 tabs 08/13/22 phentermine 37.5 mg tablet 37.5 mg PO DAILY 25 days #25 tabs 08/21/22 sumatriptan succinate 25 mg tablet 25 mg PO Q2-4H PRN migraine 08/21/22 headache 30 days #9 tabs diphenhydramine HCl 25 mg capsule 25 mg PO BID PRN allergic reaction 09/19/22 (Benadryl) #20 caps ketorolac 10 mg tablet 10 mg PO TID PRN pain 5 days #15 09/19/22 tabs metoclopramide HCl 10 mg tablet 10 mg PO Q6H PRN headache #20 tabs 09/19/22 (Reglan) Allergies Allergy/AdvReac Type Severity Reaction Status Date / Time No Known Allergies Allergy Verified 08/07/22 08:52 Review of Systems Review of Systems: Constitutional : No Weight loss, No Fever, No Chills, No Fatigue, No Malaise ENT/Mouth : No sore throat, No Rhinorrhea Eyes: No Eye Pain, No Swelling, No Redness Cardiovascular : No Chest Pain, No SOB, No Dyspnea on Exertion, No Orthopnea, No Edema, No Palpitations Respiratory : No Cough, No Sputum, No Wheezing Gastrointestinal : No Nausea, No Vomiting, No Diarrhea, No Constipation, No abdominal Pain, No Hematochezia, No Melena Genitourinary : No Dysuria, No Urinary Frequency, No Hematuria, Musculoskeletal : No joint pain, No Myalgias, No Joint Swelling Skin : No Skin Lesions, No rash Neuro : No Weakness, No Numbness, No Dizziness, + Headache Psych : No Anxiety/Panic, No Depression All other systems reviewed and are negative Yes all other systems are reviewed and are negative [facility] Past Medical History Attestation statement: The following information was validated with the patient. Source: old records reviewed and nursing notes reviewed Medical History Burning reflux Class 1 obesity with body mass index (BMI) of 32.0 to 32.9 in adult GERD (gastroesophageal reflux disease) Hand numbness Hand pain Iron deficiency anemia due to chronic blood loss Left foot pain Leg pain Right arm pain Scoliosis Skin lesions Tonsillectomy planned Surgical History H/O abdominoplasty History of bilateral breast reduction surgery History of section History of gastric surgery History of hernia repair History of tonsillectomy Hx of breast reduction, elective LAP-BAND surgery status Tubal ligation status Family History Family History Father Stroke Parkinsons disease Lewy body dementia Mother Lung cancer Maternal Grandmother Throat cancer Lung cancer Paternal Grandmother Stomach cancer Maternal Grandfather No problems noted. Paternal Grandfather No problems noted. Maternal Aunt Ovarian cancer Paternal Aunt Ovarian cancer Breast cancer Social History Social History (Reviewed 07/28/23 @ 14:22 by JACKIE Cano Housing: House Alcohol intake: never Patient Tobacco Use Status: Never used Tobacco Smoked in Last 30 Days: No e-Cigarette/Vaping Use: Never Used Second Hand Smoke Exposure: No Use of substances other than those prescribed or required for medical reasons: No Advance Directives: No Advance Directives Information Provided: No Patient : No service: No Current occupational status: disabled Cognitive needs: No Hearing needs: No Vision needs: Yes (glasses) Physical Exam ED Vital Signs: Vital Signs - 24 hr 09/19/22 11:36 09/19/22 14:27 09/19/22 16:18 Temperature 98.8 F 98.7 F 97.9 F Pulse Rate 100 82 65 Respiratory Rate 18 12 14 Blood Pressure 141/98 H 129/70 132/71 Pulse Oximetry 98 99 100 Oxygen Delivery Method Room Air Room Air Room Air BMI result Body Mass Index 34.7 Appearance: Alert.? Oriented X3.? No acute distress.? Sitting on the side of the bed with the lights dimmed. Head: Normocephalic, atraumatic, no step-offs or deformities Eyes: Pupils equal, round and reactive to light.? ENT: Pharynx normal.? Neck: Normal inspection.? Neck supple.? CVS: Normal heart rate and rhythm.? Pulses normal.? Respiratory: No respiratory distress.? Breath sounds normal.? Abdomen: Soft and nontender.? Skin: Skin warm and dry.? Normal skin color.? Normal skin turgor.? Extremities: No lower extremity edema.? No calf ttp. 5/5 strength to bilateral upper and lower extremities Back: No midline tenderness, no C-spine tenderness, full range of motion, no CVA tenderness bilaterally Neuro: Oriented X 3.? No motor deficit.? No sensory deficit. CN 2-12 intact. Normal [id number] and [id number]-fn-[id number]. Ambulating with steady gait normal coordination NIHSS-0 Course Course Course Narrative: This is a rapid medical exam: Additional HPI, ROS, PE not included below will be deferred to primary provider. Patient is a 41-year-old female with history of migraines presenting to the ED with complaint of headache for 3 days, worse when laying down. Has taken OTC medications as well as her migraine meds without relief. Reports nausea, denies photophobia. Reports intermittent blurred vision. Reevaluation(s) Reevaluation #1: Patient reports significant improvement in pain with Toradol, Reglan and Benadryl. Still stating she has a headache now 6/10. Will give Tylenol at this time. Time: 15:39 Reevaluation #2: Patient reports significant improvement. Neuro exam remains nonfocal. Patient resting comfortably in the bed. Reports her pain is now down to a 3 or 4. Patient to be discharged home with Toradol, Reglan and Benadryl. Educated patient on diagnosis and treatment plan, answered all question, patient verbalizes understanding. At this time patient will be discharged home, advised to return with new or worsening symptoms. Educated on worrisome signs and symptoms and when to return. At this time I feel comfortable discharge home. Time: 16:56 Medications Administered Discontinued Medications Generic Name Dose Route Start Last Admin Trade Name Freq PRN Reason Stop Dose Admin Acetaminophen 650 mg 09/19/22 15:39 09/19/22 16:31 Acetaminophen 325 Mg Tablet PO 09/19/22 15:40 650 mg ONCE ONE Administration Diphenhydramine HCl 25 mg 09/19/22 14:17 09/19/22 15:00 Diphenhydramine Hcl 50 Mg/Ml Vial IVPUSH 09/19/22 14:18 25 mg ONCE ONE Administration Sodium Chloride 1,000 mls @ 999 mls/hr 09/19/22 15:15 09/19/22 16:37 Ns IV 09/19/22 16:15 Infused .Q1H1M FAVIAN Infusion Ketorolac Tromethamine 15 mg 09/19/22 14:17 09/19/22 14:48 Ketorolac Tromethamine 15 Mg/Ml Vial IM 09/19/22 14:18 15 mg ONCE ONE Administration Metoclopramide HCl 10 mg 09/19/22 14:17 09/19/22 14:48 Metoclopramide Hcl 10 Mg/2 Ml Vial IVPUSH 09/19/22 14:18 10 mg ONCE ONE Administration Medical Decision Making Medical Decision Making [facility] Narrative: 1420 40-year-old female history of migraines presenting with headache, nausea, blurred vision, dizziness x3 days, unresponsive to medications PE: No scalp tenderness. Pupils equal round and reactive to light. Normal [id number] and [id number]. Cerebellum intact. NIHSS-0 Clinical suspicion for migraine headache. Unlikely ICH, giant cell arteritis, cerebellar stroke, meningitis, encephalitis, TIA, pseudotumor cerebri Plan: Toradol, Benadryl, Reglan and re-evaluation Differential Diagnosis Differential Diagnoses: The differential diagnosis associated with the presentation includes Clinical suspicion for migraine headache. Unlikely ICH, giant cell arteritis, cerebellar stroke, meningitis, encephalitis, TIA, pseudotumor cerebri Admission/Observation Consideration of admission/observation: Escalation of care including admission/observation considered Not indicate Tests considered The following testing was considered but not selected: No red flag symptoms, no focal neuro deficits no indication for CT, MRI. Core Measures AMI core measures followed: Yes Measure exclusions: not indicated Critical Care Time Critical Care Time Critical Care Time: No Discharge Plan Discharge Clinical Impression: Migraine Patient Disposition: Home, Self-Care Instructions: Migraine Headache (ED) Additional Instructions: Take your medications as prescribed. If you were prescribed antibiotics today, it is important that you take your medication to their entirety, do not skip any doses, do not finish them early. Follow-up with your primary care provider this week. Return to the emergency department with new or worsening symptoms. Such as fevers, chills, chest pain, shortness of breath, nausea, vomiting, dizziness, headache, vision changes, lethargy In case of emergency call 911 This is likely a migraine headache. Reglan, Toradol, and Benadryl have been sent your pharmacy. Please take these as needed for migraine. Always take Reglan and Benadryl together, taking Reglan alone completed involuntary muscle spasms. Follow-up with your primary care provider and/or neurologist this week. Prescriptions: New ketorolac 10 mg tablet 10 mg PO TID PRN (Reason: pain) 5 Days Qty: 15 0RF diphenhydramine HCl [Benadryl] 25 mg capsule 25 mg PO BID PRN (Reason: allergic reaction) Qty: 20 0RF metoclopramide HCl [Reglan] 10 mg tablet 10 mg PO Q6H PRN (Reason: headache) Qty: 20 0RF No Action omeprazole 20 mg capsule,delayed release(DR/EC) 40 mg PO DAILY Qty: 180 2RF hydroxyzine pamoate 25 mg capsule 25 mg PO BEDTIME PRN (Reason: itching) 90 Days Qty: 90 0RF ferrous sulfate 325 mg (65 mg iron) tablet 325 mg PO DAILY 90 Days Qty: 90 0RF topiramate 25 mg tablet 25 mg PO BEDTIME 90 Days Qty: 90 0RF phentermine 37.5 mg tablet 37.5 mg PO DAILY 25 Days Qty: 25 0RF Rx Instructions: must administer 30 minutes before or 1-2 hours after breakfast sumatriptan succinate 25 mg tablet 25 mg PO Q2-4H PRN (Reason: migraine headache) 30 Days Qty: 9 0RF Rx Instructions: do not exceed 8 doses per 24 hrs celebrate bariatric MVI PO DAILY celebrate Alhaji + D PO BID sucralfate 100 mg/mL suspension 10 ml PO BID Qty: 414 2RF Referrals: [facility] Primary Care, [place] [Provider Group] [facility] [place] Neuro/Sleep [Provider Group] - 1 week Catrina Montanez MD [Primary Care Provider] - 2 days Stand Alone Forms: Work/School Release
[2022-09-19 14:27] VITALS: BP 129/70; PULSE 82; RESP 12; TEMP 37.1; O2SAT 99
[2022-09-19] MEDS: Ketorolac Tromethamine 15 MG/ML VIAL IM (14:48)
[2022-09-19] MEDS: Metoclopramide HCl 10 MG/2 ML VIAL IVPUSH (14:48)
[2022-09-19] MEDS: diphenhydrAMINE HCL 50 MG/ML VIAL 25 MG IVPUSH (15:00)
[2022-09-19] MEDS: 0.9 % Sodium Chloride 1,000 ML 999 ML IV (15:10)
[2022-09-19 16:18] VITALS: BP 132/71; PULSE 65; RESP 14; TEMP 36.6; O2SAT 100
[2022-09-19] MEDS: Acetaminophen 325 MG TABLET 650 MG PO (16:31)
== END 2022-09-19 17:08 | disposition home or self-care (01) ==
PROVIDERS: Emergency Provider Emergency Medicine Emergency Medical Services; PCP Internal Medicine
DX: G43.909 Migraine, unspecified, not intractable, without status migrainosus (principal); R11.2 Nausea with vomiting, unspecified; Z79.899 Other long term (current) drug therapy
CPT/HCPCS: 96361; 96372; 96374; 96375; 99284; J1200; J1885; J2765

== ENCOUNTER 2022-10-07 10:06 | Outpatient (AMB) | payer OTHER, SELFPAY ==
--- NOTE | 2022-10-07 10:14 | MHC.OFFVISWM ---
Intake VS Expanded 10/07/22 10:18 Height 4 ft 11 in Weight 175 lb 9.6 oz BMI 35.5 BP 133/77 Blood Pressure Location Rt brachial Blood Pressure Position Sitting Pulse 82 Pulse Source Pulse Oximeter Temp 98.0 F Temperature Source Temporal Artery Scan Pulse Oximetry 99 Oxygen Delivery Method Room Air Body Fat 66.6 Body Fat Percentage 37.9 Free Fat Mass 109.0 Muscle Mass 103.4 Visceral Mass 9.0 Water Mass 77.8 BMR 1,501 Intake Visit Reasons: (OV) PO LSG 09/2015 Allergies No Known Allergies Allergy (Verified 10/07/22 10:17) Medication List - Last Reconciled 10/07/22 by HUMBERTO Mueller [celebrate bariatric MVI PO DAILY] [celebrate Alhaji + D PO BID] diphenhydramine HCl (Benadryl) 25 mg PO BID PRN ferrous sulfate 325 mg PO DAILY 90 days hydroxyzine pamoate 25 mg PO BEDTIME PRN 90 days metoclopramide HCl (Reglan) 10 mg PO Q6H PRN omeprazole 40 mg (2 x 20 mg) PO DAILY phentermine 37.5 mg PO DAILY 25 days sucralfate 10 mL PO BID sumatriptan succinate 25 mg PO Q2-4H PRN 30 days topiramate 25 mg PO BEDTIME 90 days HPI HPI Comments History of Present Illness Details This?is a?41?yo female who is s/p conversion of band (Yoandy, 2009) to LSG 09/2015 ([place]). Presents for 7 year post op visit. Weight at last visit on 07/30/2022 was 173.2 pounds with a BMI of 35, weight today is 175.6 pounds, representing a 2.4 pound weight gain with a BMI today of 35.5.? No complaints of nausea, emesis, abdominal pain, or constipation. Present meal plan includes: 8am- Pure Protein shake 1/2 scoop in 8oz unsweetened almond milk 11am- same shake 1pm- snack of cheese stick, or 1 egg, or half shake with berries 4:30pm- dinner of 3oz protein, 3oz veg 7pm- yogurt, can add berries Pt had UGI scheduled for 09/29 but reports she was never called with instructions on date/time. Pt reports for the last 2 weeks has not been following plan. In AM will have coffee with crackers, then not eat again until dinner around 3-5pm; had a pancake in AM yesterday, then 2 chicken wings for dinner. Was given handout on protein arrieta at last visit. Reflux continues without improvement after starting carafate. [facility] Medical History Burning reflux Class 1 obesity with body mass index (BMI) of 32.0 to 32.9 in adult GERD (gastroesophageal reflux disease) Hand numbness Hand pain Iron deficiency anemia due to chronic blood loss Left foot pain Leg pain Right arm pain Scoliosis Skin lesions Tonsillectomy planned Surgical History H/O abdominoplasty History of bilateral breast reduction surgery History of section History of gastric surgery History of hernia repair History of tonsillectomy Hx of breast reduction, elective LAP-BAND surgery status Tubal ligation status Family History Father Stroke Parkinsons disease Lewy body dementia Mother Lung cancer Maternal Grandmother Throat cancer Lung cancer Paternal Grandmother Stomach cancer Maternal Grandfather No problems noted. Paternal Grandfather No problems noted. Maternal Aunt Ovarian cancer Paternal Aunt Ovarian cancer Breast cancer Social History Housing: House Alcohol intake: never Patient Tobacco Use Status: Never used Tobacco e-Cigarette/Vaping Use: Never Used Second Hand Smoke Exposure: No service: No Current occupational status: disabled Cognitive needs: No Hearing needs: No Vision needs: Yes (glasses) Female Reproductive History Menstrual Age of Menarche: 6 Physical Exam Vital Signs: Last Vital Signs Temp 98.0 F 10/07/22 10:18 Pulse 82 10/07/22 10:18 BP 133/77 10/07/22 10:18 Pulse Ox 99 10/07/22 10:18 Oxygen Delivery Method Room Air 10/07/22 10:18 BMI result Body Mass Index 35.5 Assessment & Plan Assessment & Plan (1) Status post sleeve gastrectomy: Code(s): Z90.3 - Acquired absence of stomach [part of] (2) Obesity (BMI 30-39.9): Code(s): E66.9 - Obesity, unspecified (3) GERD (gastroesophageal reflux disease): Code(s): K21.9 - Gastro-esophageal reflux disease without esophagitis Plan Will reschedule UGI to further evaluate reflux. Discussed that pt's current eating habits are likely to worsen reflux and possibly cause inflammation of stomach lining if she is going long periods without eating, drinking coffee on empty stomach daily, and not getting adequate protein to support nutrition and healing. Annual labs also ordered. RTC once UGI complete. Patient is obese and is not considered stable at this time. I spent a total of 30 minutes reviewing/updating records, examining the patient and counseling the patient on weight management as detailed above. Orders: Orders Vitamin B12 and Folate Today Z90.3 - Acquired absence of stomach [part of] Comprehensive Met. Panel Today Z90.3 - Acquired absence of stomach [part of] C Reactive Protein Today Z90.3 - Acquired absence of stomach [part of] Ferritin Today Z90.3 - Acquired absence of stomach [part of] Hemoglobin A1c Today Z90.3 - Acquired absence of stomach [part of] Insulin Today Z90.3 - Acquired absence of stomach [part of] IRON PROFILE Today Z90.3 - Acquired absence of stomach [part of] Lipid Panel Today Z90.3 - Acquired absence of stomach [part of] PTHI Today Z90.3 - Acquired absence of stomach [part of] TSH reflex Free T4 Today Z90.3 - Acquired absence of stomach [part of] Vitamin A Today Z90.3 - Acquired absence of stomach [part of] Vitamin B1 Today Z90.3 - Acquired absence of stomach [part of] Vitamin D 25-OH Total Today Z90.3 - Acquired absence of stomach [part of] Zinc Today Z90.3 - Acquired absence of stomach [part of] Complete Blood Count Auto Diff Today Z90.3 - Acquired absence of stomach [part of] FL upper GI series Today K21.9 - Gastro-esophageal reflux disease without esophagitis, Z90.3 - Acquired absence of stomach [part of] Coding Level of Care Code Est Pt Level 4 (24192) Diagnoses Status post sleeve gastrectomy Z90.3 Obesity (BMI 30-39.9) E66.9 GERD (gastroesophageal reflux disease) K21.9
[2022-10-07 10:18] VITALS: BP 133/77; PULSE 82; TEMP 36.7; O2SAT 99; BMI 35.5
== END 2022-10-07 11:04 | disposition home or self-care (01) ==
PROVIDERS: PCP Internal Medicine; Visit Provider Physician Assistant Surgical
DX: E66.9 Obesity, unspecified (principal); Z68.35 Body mass index [BMI] 35.0-35.9, adult; Z90.3 Acquired absence of stomach [part of]; Z98.84 Bariatric surgery status; K21.9 Gastro-esophageal reflux disease without esophagitis
CPT/HCPCS: 99214

== ENCOUNTER → 2022-10-07 10:06 | Outpatient (BNVA) | payer OTHER, SELFPAY | PROVIDERS: PCP Internal Medicine; Visit Provider Physician Assistant Surgical | DX: E66.9 Obesity, unspecified (principal); Z68.35 Body mass index [BMI] 35.0-35.9, adult; K21.9 Gastro-esophageal reflux disease without esophagitis; Z98.84 Bariatric surgery status; Z90.3 Acquired absence of stomach [part of] | CPT/HCPCS: 99212 ==

== ENCOUNTER 2022-10-23 08:22 | Outpatient (AMB) | payer OTHER, SELFPAY ==
[2022-10-23 08:24] VITALS: BP 122/80; BMI 35.7
--- NOTE | 2022-10-23 08:24 | A.OFFPC_ITS ---
Vital Signs 10/23/22 08:24 Height 4 ft 11 in Weight 177 lb BMI 35.7 BP 122/80 Blood Pressure Location Lt brachial Position Sitting Intake Visit Reasons: Physical Exam Intake Note: Patient here for a physical exam Activated Sludge Attendant Required: No Accompanied by: Spouse Allergies No Known Allergies Allergy (Verified 10/23/22 08:37) Medication List - Last Reconciled 10/23/22 by Catrina Cruz MD [celebrate bariatric MVI PO DAILY] [celebrate Alhaji + D PO BID] diphenhydramine HCl (Benadryl) 25 mg PO BID PRN hydroxyzine pamoate 25 mg PO BEDTIME PRN 90 days metoclopramide HCl (Reglan) 10 mg PO Q6H PRN omeprazole 40 mg (2 x 20 mg) PO DAILY phentermine 37.5 mg PO DAILY 25 days sucralfate 10 mL PO BID sumatriptan succinate 25 mg PO Q2-4H PRN 30 days topiramate 25 mg PO BEDTIME 90 days Tobacco use date assessed: 10/23/22 Dental Screening Dental Screen Date: 10/23/22 Did you have a dental visit in the last 12 months?: Yes Did you have a dental problem in the last 6 months where you did not have access to dental care?: No Was dental information given to patient?: Patient has dentist HPI HPI Comments History of Present Illness Details This is a 42-year-old female that comes for her physical exam. Last mammogram was June 2022 at [facility] and she does not have results yet. She will call for the results. Last Pap smear was 2019. Denies any chest pain or shortness of breath. She is aware that phentermine can cause heart attack and strokes. Accompanied by . Complains of migraines been more frequently and I will increase Topamax. [facility] Medical History Burning reflux Class 1 obesity with body mass index (BMI) of 32.0 to 32.9 in adult GERD (gastroesophageal reflux disease) Hand numbness Hand pain Iron deficiency anemia due to chronic blood loss Left foot pain Leg pain Right arm pain Scoliosis Skin lesions Tonsillectomy planned Surgical History H/O abdominoplasty History of bilateral breast reduction surgery History of section History of gastric surgery History of hernia repair History of tonsillectomy Hx of breast reduction, elective LAP-BAND surgery status Tubal ligation status Family History Father Stroke Parkinsons disease Lewy body dementia Mother Lung cancer Maternal Grandmother Throat cancer Lung cancer Paternal Grandmother Stomach cancer Maternal Grandfather No problems noted. Paternal Grandfather No problems noted. Maternal Aunt Ovarian cancer Paternal Aunt Ovarian cancer Breast cancer Social History Housing: House Alcohol intake: never Patient Tobacco Use Status: Never used Tobacco e-Cigarette/Vaping Use: Never Used Second Hand Smoke Exposure: No service: No Current occupational status: disabled Cognitive needs: No Hearing needs: No Vision needs: Yes (glasses) Female Reproductive History Menstrual Age of Menarche: 6 Questionnaire PHQ-9 Over the last 2 weeks, how often have you been bothered by any of the following problems? 1. Little interest or pleasure in doing things: not at all 2. Feeling down, depressed, or hopeless: not at all 3. Trouble falling or staying asleep, or sleeping too much: not at all 4. Feeling tired or having little energy: not at all 5. Poor appetite or overeating: not at all 6. Feeling bad about yourself - or that you are a failure or have let yourself or your family down: not at all 7. Trouble concentrating on things, such as reading the newspaper or watching television: not at all 8. Moving or speaking so slowly that other people could have noticed. Or the opposite - being so fidgety or restless that you have been moving around a lot more than usual: not at all 9. Thoughts that you would be better off or of hurting yourself in some way: not at all Total score: 0 Depression Screening Interpretation: Negative 95685 - PHQ-9 Billing: Yes Source: Developed by Drs. Gomez Grajeda, Dahlia Jerome, Juan Carlos Deluna and colleagues, with an educational jitendra from [employer]. Thrive Questionnaire Date Thrive assessed: 10/23/22 I am a: Patient What is your living situation today?: I have a steady place to live Within the past 12 months, did the food you bought not last and you didn't have the money to get more?: Never true Within the past 12 months, did you worry whether your food would run out before you got money to buy more?: Never true Do you have trouble paying for medicines?: No Do you have trouble getting transportation to medical appointments?: No Do you have trouble paying your heating and electricity bill?: No Do you have trouble taking care of your child, family member or friend?: No Do you have trouble with day-to-day activities such as bathing, preparing meals, shopping, managing finances, etc.?: No Are you currently unemployed and looking for a job?: No Are you interested in more education?: No Please select the resources that you would like help with: None Currently or been in a relationship where the following occur: no concerns reported AUDIT C Alcohol Use Questionnaire (AUDIT-C) 1. How often do you have a drink containing alcohol?: Never Total Score: 0 Score Reviewed/Action Taken: No GARY-7 AMB Questionnaire GARY-7 Date GARY - 7 assessed: 10/23/22 Feeling nervous, anxious, or on edge: 0 = Not at all Not being able to stop or control worryin = Not at all Worrying too much about different things: 0 = Not at all Trouble relaxin = Not at all Being so restless that it is hard to sit still: 0 = Not at all Becoming easily annoyed or irritable: 0 = Not at all Feeling afraid as if something awful might happen: 0 = Not at all Total GARY-7 score (0-4 normal; 5-9 mild; 10-14 moderate; 15-21 severe): 0 Source: Developed by Drs. Gomez Grajeda, Dahlia Jerome, Juan Carlos Deluna and colleagues, with an educational jitendra from [employer]. GARY-7 Assessment Billing GARY-7 Assessment Tool: GARY-7 Assessment 86085 Review of Systems Const All systems reviewed & are unremarkable except as noted in HPI and below Eyes Reports no additional complaints, Denies change in vision and Denies other visual disturbances Card Denies chest pain at rest, Denies chest pain with activity, Denies edema, Denies irregular heart rhythm, Denies claudication, Denies dyspnea, Denies dyspnea on exertion, Denies orthopnea, Denies paroxysmal nocturnal dyspnea and Denies slow heart rate Resp Denies cough, Denies dyspnea and Denies dyspnea on exertion GI Denies abdominal pain, Denies change in bowel habits, Denies excessive flatus, Denies nausea and Denies vomiting Denies urinary incontinence, Denies urinary hesitancy and Denies urinary urgency Musc Denies abnormal gait, Denies atrophy, Denies deformity and Denies limited range of motion Skin/Breast Denies bleeding lesions, Denies changing lesions and Denies rash Neuro Denies abnormal gait and Denies lack of coordination Physical exam (Primary Care) Vital Signs: Last Vital Signs BP 122/80 10/23/22 08:24 BMI result Body Mass Index 35.7 Tobacco/Smoking Status: Tobacco use Status Tobacco use date assessed 10/23/22 10/23/22 08:29 Patient Tobacco Use Status Never used Tobacco 10/23/22 08:29 e-Cigarette/Vaping Use Never Used 10/23/22 08:29 PHQ-9: PHQ-9 Score PHQ-9: Total score 0 10/23/22 08:42 Depression Screening Interpretation: Negative Thrive Assessment: Date of Thrive Assessment Date Thrive assessed 10/23/22 10/23/22 08:29 Currently or been in a relationship where the following occur: no concerns reported Const Orientation/consciousness: patient oriented x3 [facility] Head: Yes normal to inspection, Yes normocephalic and Yes atraumatic Ears: external ears normal Eyes General: appearance normal, both eyes and all related structures Eyelids: Yes eyelids normal Conjunctivae: conjunctivae normal Neck Neck: Yes normal visual inspection and Yes supple Resp Effort & Inspection: normal respiratory effort Auscultation: clear to auscultation bilaterally Cardio Jugular venous distension: no JVD Rate: regular rate Rhythm: regular rhythm Heart sounds: S1 normal heart sound present and S2 normal heart sound present GI Inspection: Yes normal to inspection Palpation (GI): Soft to palpation and nontender Auscultation: normal bowel sounds Skin General skin exam: no rashes or lesions noted Neuro General: patient oriented x3 and no focal motor deficits Extrem General: Yes full ROM Psych Appearance: grossly normal Assessment and Plan Assessment & Plan (1) Physical exam: Code(s): Z00.00 - Encounter for general adult medical examination without abnormal findings Plan: Repeat in a year. Orders: Orders Complete Blood Count Auto Diff Today D64.9 - Anemia, unspecified IRON PROFILE Today D64.9 - Anemia, unspecified Lipid Panel Today Z00.00 - Encounter for general adult medical examination without abnormal findings Vitamin D 25-OH Total Today E55.9 - Vitamin D deficiency, unspecified Comprehensive [place]. Panel Fast Today Z00.00 - Encounter for general adult medical examination without abnormal findings Referrals Neurology Referral G43.909 - Migraine, unspecified, not intractable, without status migrainosus Medications: New topiramate 50 mg PO BEDTIME 90 tabs 1RF 90 days Discontinued topiramate Discontinued Reason: Patient Completed Course 25 mg PO BEDTIME 90 days 90 tabs 0RF Coding Level of Care Code Est Pt Prev Care 40-64y(57400) Diagnoses Physical exam Z00.00 Additional Codes GARY-7 Assessment Billing - GARY-7 Assessment Tool: GARY-7 Assessment 00672 ([id number]) Time Spent (min) 31
== END 2022-10-23 08:49 | disposition home or self-care (01) ==
PROVIDERS: Visit Provider Internal Medicine
DX: Z00.00 Encounter for general adult medical examination without abnormal findings (principal)
CPT/HCPCS: 99396

== ENCOUNTER 2022-11-05 10:09 | Outpatient (REF) | payer OTHER, SELFPAY ==
[2022-11-05 10:28] LABS: MANUAL DIFF FLAG NO
[2022-11-05 10:40] LABS: Basophils Absolute Auto 0.1 X10*3/uL (0.0-0.2); Basophils Percent Auto 0.8 % (0-2); Eosinophils Absolute Auto 0.1 X10*3/uL (0.0-0.4); Eosinophils Percent Auto 0.7 % (0-4); Hemoglobin 10.6 g/dl (12.0-16.0); Imm Gran Abs Auto 0.03 X10*3/uL (0.00-0.03); Imm Gran Pct Auto 0.3 % (0.0-0.4); Lymphocytes Absolute Auto 2.2 X10*3/uL (1.2-4.9); Lymphocytes Percent Auto 24.6 % (20-40); Mean Corpuscular HGB Conc 30.3 g/dl (31.0-35.0); Mean Corpuscular Hemoglobin 23.1 pg (27.0-33.0); Mean Corpuscular Volume 76.4 fL (80.0-98.0); Mean Platelet Volume 9.7 fL (9.4-12.3); Monocytes Absolute Auto 0.6 X10*3/uL (0.1-1.2); Monocytes Percent Auto 6.9 % (2-11); Neutrophils Absolute Auto 5.9 x10*3/uL (2.0-8.3); Neutrophils Percent Auto 66.7 % (45-73); Platelet Count 427 X10*3/uL (160-400); Red Blood Count 4.58 X10*6/uL (4.20-5.50); Red Cell Distribution Width 16.9 % (11.0-16.0); White Blood Count 8.8 X10*3/uL (4.8-10.8)
[2022-11-05 11:00] LABS: Estimated Average Glucose 111 mg/dL; Hemoglobin A1c % 5.5 % (<6.0)
[2022-11-05 11:38] LABS: Alanine Aminotransferase 11 U/L (0-31); Albumin Level 4.1 g/dL (3.5-5.0); Alkaline Phosphatase 56 U/L (39-117); Anion Gap 12 (12-20); Aspartate Amino Transferase 15 U/L (5-31); Bilirubin Total 0.3 mg/dL (0.0-1.0); Blood Urea Nitrogen 10 mg/dL (9-16); Calcium 9.6 mg/dL (8.4-10.2); Carbon Dioxide 21 mmol/L (22-29); Chloride 111 mmol/L (96-108); Cholesterol 182 mg/dL (<200); Estimated Glomerular Filt Rate > 60; Glucose Fasting 90 mg/dL (60-99); Glucose Random 90 mg/dL (60-115); HDL Cholesterol 48 mg/dL (>40); Iron 31 mcg/dL (30-160); LDL Cholesterol Calculated 97 mg/dL (<100); Percent Iron Saturation 7 % (15-50); Potassium 3.9 mmol/L (3.3-5.1); Sodium 140 mmol/L (135-145); Total Iron Binding Capacity 444 mcg/dL (228-428); Total Protein 7.3 g/dL (6.5-8.0); Triglycerides 187 mg/dL (<150); Unsaturated Iron Binding 413 ug/dL
[2022-11-05 11:40] LABS: Folate 10.6 ng/mL (> or = 4.0); Vitamin B12 468 pg/mL (200-900)
[2022-11-05 11:54] LABS: Ferritin 9 ng/mL (10-250); Insulin 35 uU/mL (2-29); TSH reflex Free T4 1.61 uIU/mL (0.32-4.0); Vitamin D 25-OH Total 32.1 ng/mL (>30)
[2022-11-07 23:58] LABS: Calcium (PTHI) 9.7 mg/dL (8.6-10.2); PTHI 55 pg/mL (16-77)
[2022-11-08 17:18] LABS: Zinc 78 mcg/dL (60-130)
[2022-11-09 15:19] LABS: Vitamin B1 <6 nmol/L (8-30)
[2022-11-12 17:42] LABS: Vitamin A 60 mcg/dL (38-98)
== END 2022-11-05 10:10 | disposition home or self-care (01) ==
LOC: HO.LAB 10:09
PROVIDERS: Absent Provider Physician Assistant Surgical; PCP Internal Medicine; Visit Provider Internal Medicine
DX: Z00.00 Encounter for general adult medical examination without abnormal findings (principal); K91.2 Postsurgical malabsorption, not elsewhere classified; D64.9 Anemia, unspecified; E55.9 Vitamin D deficiency, unspecified; Z90.3 Acquired absence of stomach [part of]
CPT/HCPCS: 80053; 80061; 82306; 82607; 82728; 82746; 83036; 83525; 83540; 83970; 84425; 84443; 84590; 84630; 85025; 86140

== ENCOUNTER 2022-12-11 08:53 | Outpatient (REF) | payer OTHER, SELFPAY ==
--- NOTE | ~2022-12-11 | FL_ITS ---
EXAMINATION: XR FLUOROSCOPY UPPER GI WITH AIR CLINICAL INFORMATION: Reflux. Epigastric pain. History of gastric sleeve. History of hiatal hernia repair x2 COMPARISON: None TECHNIQUE: Fluoroscopic air contrast upper GI examination was performed utilizing standard techniques with thin and thick barium and effervescent granules. Numerous spot images were obtained. FINDINGS: Lateral cine images of the oropharynx and hypopharynx demonstrate normal swallow mechanism with normal epiglottic inversion and soft palate elevation. No tracheal penetration, glottic or subglottic aspiration identified. No nasopharyngeal reflux present. Hypopharyngeal structures appear normal without evidence of mass or diverticulum. Mild cricopharyngeal achalasia is present. Dual and single contrast images of the esophagus demonstrate a large dilated, patulous esophagus. No evidence of stricture, mass, or ulcerations identified. Esophageal peristalsis was extremely attenuated, with mild nonpropulsive tertiary contractions. A moderate size paraesophageal hiatal hernia is present. Significant gastroesophageal reflux was seen up to the thoracic inlet. Dual contrast and single contrast images of the stomach demonstrated contour in keeping with prior gastric sleeve procedure. Otherwise, normal mucosal pattern without evidence of mass, ulceration, or other abnormality. Contrast freely passed into the gastric antrum and duodenal bulb without delay. Single and air-contrast images of the duodenal bulb demonstrate no abnormality. The duodenal sweep has a normal appearance, course, and mucosal fold appearance. The imaged proximal jejunum has a normal fold pattern and caliber. FLUOROSCOPY TIME: 3 minutes 33 seconds Number of Spot Images: 9 fluoroscopic cine image hold runs taken, 9 fluoroscopic spot images taken. DOSE AREA PRODUCT: 3925 uGy-m2 (microgray-meter squared) FL/FL upper GI series IMPRESSION: 1. Moderate sized paraesophageal hiatus hernia present. Significant gastroesophageal reflux noted to the level of the thoracic inlet. 2. Patulous, dilated esophagus with poor and disordered motility. No definite mucosal abnormality. 3. Mild cricopharyngeal achalasia. 4. Contour to the stomach in keeping with prior gastric sleeve procedure. This procedure was performed by Salazar Manzano PA-C, and supervised by Dr. Olivera
== END 2022-12-11 08:54 | disposition home or self-care (01) ==
LOC: HO.XRAY 08:53
PROVIDERS: PCP Internal Medicine; Visit Provider Physician Assistant Surgical
DX: K21.9 Gastro-esophageal reflux disease without esophagitis (principal); Z90.3 Acquired absence of stomach [part of]
CPT/HCPCS: 74240

== ENCOUNTER → 2022-12-11 08:56 | Outpatient (BNV) | payer OTHER, SELFPAY | PROVIDERS: PCP Internal Medicine; Visit Provider Radiology Diagnostic Radiology | DX: K44.0 Diaphragmatic hernia with obstruction, without gangrene (principal); K22.0 Achalasia of cardia; Z98.84 Bariatric surgery status | CPT/HCPCS: 74246 ==

== ENCOUNTER 2022-12-18 10:03 | Outpatient (AMB) | payer OTHER, SELFPAY ==
--- NOTE | 2022-12-18 10:05 | MHC.OFFVISWM ---
Intake VS Expanded 12/18/22 10:18 BP 131/60 Blood Pressure Location Rt brachial Blood Pressure Position Sitting Pulse 84 Pulse Source Pulse Oximeter Temp 98.2 F Temperature Source Temporal Artery Scan Pulse Oximetry 99 Oxygen Delivery Method Room Air Height 4 ft 11 in Weight 176 lb 3.2 oz BMI 35.6 Body Fat % 40.3 Body Fat Mass 71.0 Fat Free Mass 105.2 Visceral Fat Rating 10.0 Body Water % 42.6 Body Water Mass 75.0 Muscle Mass/Score 99.8 Basal Metabolic Rate/Score 1,462 Intake Visit Reasons: (OV) PO LSG 09/2015 f/u gerd test Allergies No Known Allergies Allergy (Verified 12/18/22 10:13) Medication List - Last Reconciled 12/18/22 by HUMBERTO Mueller [celebrate bariatric MVI PO DAILY] [celebrate Alhaji + D PO BID] diphenhydramine HCl (Benadryl) 25 mg PO BID PRN hydroxyzine pamoate 25 mg PO BEDTIME PRN 90 days iron,carbonyl-vitamin C 65 mg iron- 125 mg (Vitron-C) 1 tab PO BEDTIME metoclopramide HCl (Reglan) 10 mg PO Q6H PRN omeprazole 40 mg (2 x 20 mg) PO DAILY phentermine 37.5 mg PO DAILY 25 days sumatriptan succinate 25 mg PO Q2-4H PRN 30 days thiamine HCl (vitamin B1) 100 mg PO DAILY topiramate 50 mg PO BEDTIME 90 days HPI HPI Comments History of Present Illness Details Pt presents in followup after UGI. Continues to have persistent reflux despite PPI therapy 40mg BID. No longer taking carafate, not helping. Has been trying to drink only protein shakes but has difficulty finishing all her protein in a day due to symptoms. This morning had black coffee after having water; then some Macedonian yogurt. [facility] Medical History Burning reflux Class 1 obesity with body mass index (BMI) of 32.0 to 32.9 in adult GERD (gastroesophageal reflux disease) Hand numbness Hand pain Iron deficiency anemia due to chronic blood loss Left foot pain Leg pain Right arm pain Scoliosis Skin lesions Tonsillectomy planned Surgical History History of bilateral breast reduction surgery History of hernia repair History of tonsillectomy History of section H/O abdominoplasty Hx of breast reduction, elective History of gastric surgery LAP-BAND surgery status Tubal ligation status Family History Father Stroke Parkinsons disease Lewy body dementia Mother Lung cancer Maternal Grandmother Throat cancer Lung cancer Paternal Grandmother Stomach cancer Maternal Grandfather No problems noted. Paternal Grandfather No problems noted. Maternal Aunt Ovarian cancer Paternal Aunt Ovarian cancer Breast cancer Social History Housing: House Alcohol intake: never Patient Tobacco Use Status: Never used Tobacco e-Cigarette/Vaping Use: Never Used Second Hand Smoke Exposure: No service: No Current occupational status: disabled Cognitive needs: No Hearing needs: No Vision needs: Yes (glasses) Female Reproductive History Menstrual Age of Menarche: 6 Physical Exam Vital Signs: Last Vital Signs Temp 98.2 F 12/18/22 10:18 Pulse 84 12/18/22 10:18 BP 131/60 12/18/22 10:18 Pulse Ox 99 12/18/22 10:18 Oxygen Delivery Method Room Air 12/18/22 10:18 BMI result Body Mass Index 35.6 Results Reviewed Results Reviewed: Ordering Physician: Hillary Bassett Date of Service: 12/11/22 Procedure(s): FL upper GI series Accession Number(s): [id number] cc: Hillary Bassett; Catrina Montanez MD~ EXAMINATION: XR FLUOROSCOPY UPPER GI WITH AIR CLINICAL INFORMATION: Reflux. Epigastric pain. History of gastric sleeve. History of hiatal hernia repair x2 COMPARISON: None TECHNIQUE: Fluoroscopic air contrast upper GI examination was performed utilizing standard techniques with thin and thick barium and effervescent granules. Numerous spot images were obtained. FINDINGS: Lateral cine images of the oropharynx and hypopharynx demonstrate normal swallow mechanism with normal epiglottic inversion and soft palate elevation. No tracheal penetration, glottic or subglottic aspiration identified. No nasopharyngeal reflux present. Hypopharyngeal structures appear normal without evidence of mass or diverticulum. Mild cricopharyngeal achalasia is present. Dual and single contrast images of the esophagus demonstrate a large dilated, patulous esophagus. No evidence of stricture, mass, or ulcerations identified. Esophageal peristalsis was extremely attenuated, with mild nonpropulsive tertiary contractions. A moderate size paraesophageal hiatal hernia is present. Significant gastroesophageal reflux was seen up to the thoracic inlet. Dual contrast and single contrast images of the stomach demonstrated contour in keeping with prior gastric sleeve procedure. Otherwise, normal mucosal pattern without evidence of mass, ulceration, or other abnormality. Contrast freely passed into the gastric antrum and duodenal bulb without delay. Single and air-contrast images of the duodenal bulb demonstrate no abnormality. The duodenal sweep has a normal appearance, course, and mucosal fold appearance. The imaged proximal jejunum has a normal fold pattern and caliber. FLUOROSCOPY TIME: 3 minutes 33 seconds Number of Spot Images: 9 fluoroscopic cine image hold runs taken, 9 fluoroscopic spot images taken. DOSE AREA PRODUCT: 3925 uGy-m2 (microgray-meter squared) FL/FL upper GI series IMPRESSION: 1. Moderate sized paraesophageal hiatus hernia present. Significant gastroesophageal reflux noted to the level of the thoracic inlet. 2. Patulous, dilated esophagus with poor and disordered motility. No definite mucosal abnormality. 3. Mild cricopharyngeal achalasia. 4. Contour to the stomach in keeping with prior gastric sleeve procedure. Assessment & Plan Assessment & Plan (1) Status post sleeve gastrectomy: Code(s): Z90.3 - Acquired absence of stomach [part of] (2) GERD (gastroesophageal reflux disease): Code(s): K21.9 - Gastro-esophageal reflux disease without esophagitis (3) Obesity (BMI 30-39.9): Code(s): E66.9 - Obesity, unspecified (4) Paraesophageal hernia: Code(s): K44.9 - Diaphragmatic hernia without obstruction or gangrene Plan Pt with UGI evidence of paraesophageal hernia and patulous, dilated esophagus with poor and disordered motility and mild achalasia. Will discuss case with Dr. Kimble. Informed pt that endoscopy may be next best step and eventual discussion of options with surgeon for ? surgical repair. In the mean time strongly encouraged pt to eat and drink slowly, no coffee on empty stomach, make sure to get all protein in each day. Continue high dose PPI. Texted meal plan to pt, based on her current schedule: 8-10am 1 scoop Premier powder in 8oz unsweetened almond milk 11-1pm 2 scoop shake 2-3pm- make another 1 scoop shake, drink 4 ounces now 4:30pm is her dinner time- 4 forks protein, 4 forks veg 6-7pm finish 4oz of shake from earlier Patient is obese and is not considered stable at this time. I spent a total of 30 minutes reviewing/updating records, examining the patient and counseling the patient on weight management as detailed above. Coding Level of Care Code Est Pt Level 4 (14510) Diagnoses Status post sleeve gastrectomy Z90.3 GERD (gastroesophageal reflux disease) K21.9 Obesity (BMI 30-39.9) E66.9 Paraesophageal hernia K44.9
[2022-12-18 10:18] VITALS: BP 131/60; PULSE 84; TEMP 36.8; O2SAT 99; BMI 35.6
== END 2022-12-18 10:53 | disposition home or self-care (01) ==
PROVIDERS: PCP Internal Medicine; Visit Provider Physician Assistant Surgical
DX: E66.9 Obesity, unspecified (principal); Z68.35 Body mass index [BMI] 35.0-35.9, adult; Z90.3 Acquired absence of stomach [part of]; K21.9 Gastro-esophageal reflux disease without esophagitis; Z98.84 Bariatric surgery status
CPT/HCPCS: 99214

== ENCOUNTER → 2022-12-18 10:03 | Outpatient (BNVA) | payer OTHER, SELFPAY | PROVIDERS: PCP Internal Medicine; Visit Provider Physician Assistant Surgical | DX: E66.9 Obesity, unspecified (principal); K21.9 Gastro-esophageal reflux disease without esophagitis; K44.9 Diaphragmatic hernia without obstruction or gangrene; Z90.3 Acquired absence of stomach [part of]; Z68.35 Body mass index [BMI] 35.0-35.9, adult | CPT/HCPCS: 99212 ==

== ENCOUNTER 2022-12-23 07:51 | Day surgery (SDC) | payer OTHER, SELFPAY ==
--- NOTE | 2022-12-21 16:49 | MHC.SHP ---
Pre-Procedural Eval Section A Date of Service: 12/21/22 The patient is an INPATIENT: No The History & Physical has been completed within 30 days and I have reviewed it.: No Section B Chief Complaint: Gastro-esophageal reflux disease without esophagit Relevant Family History (Specify if Yes): No Relevant Social History: None Present Medications: None Medical History: No relevant PMH History of Previous Operations: Relevant previous surgery/procedure and date(s) (lap band (2008) and lap conversion to sleeve gastrectomy ()) Allergies: Allergies Allergy/AdvReac Type Severity Reaction Status Date / Time No Known Allergies Allergy Verified 12/18/22 10:13 Review of Systems Sugical H&P ROS: Negative: Constitution, Cardiovascular, Respiratory, Neurological, Psychiatric, Hem-Onc, Allergic/Immunologic, Genitourinary, Musculoskeletal, Integumentary, Endocrine and Eyes/Ears/Nose/Throat and Yes, Specify: Gastrointestinal (severe GERD) Exam Surgical H&P Exam: Normal: HEENT, Normal: Heart, Normal: Lungs, Normal: Extremities, Normal: Abdomen, Normal: Skin and Normal: Neurological Plan Diagnosis/Plan: Unchanged (EGD to assess severity of esophagitis, GERD an diaphragmatic hernia. Risks for perforation and bleeding were discussed with patient. She is in agreement with the plan) I have reviewed the history and physical and performed a pertinent physical examination on my patient. No changes have occurred unless specified. Time Spent With Patient Time: Total time managing care of this patient today ____ minutes.
--- NOTE | 2022-12-22 10:52 | P.CONAN_ITS ---
Documented by User: Nuvia Guerra NP 12/22/22 10:53 HPI - Anesthesia Eval Consult details Narrative: 42yo F for Upper Endoscopy PMFSH Active Problems Active Problems: All Active Problems (Updated 12/18/22 @ 10:48 by HUMBERTO Mueller) Paraesophageal hernia (Acute) Migraines (Acute) Status post sleeve gastrectomy (Acute) Chest pain (Acute) Shortness of breath (Acute) Physical exam (Acute) Breast pain, right (Acute) Lump of right breast (Acute) Obesity (BMI 30-39.9) (Acute) Hand pain (Acute) Leg pain (Acute) Right arm pain (Acute) Scoliosis (Acute) Left foot pain (Acute) Hand numbness (Acute) Impingement syndrome of right shoulder (Acute) Right cervical radiculopathy (Acute) Skin lesions (Acute) GERD (gastroesophageal reflux disease) (Acute) Iron deficiency anemia due to chronic blood loss (Acute) Class 1 obesity with body mass index (BMI) of 32.0 to 32.9 in adult (Acute) COVID-19 (Acute) Vaginal itching (Acute) Breast mass, right (Acute) Genital herpes (Acute) Chronic dermatitis (Acute) Past Medical History Medical History Hand pain Leg pain Right arm pain Scoliosis Left foot pain Hand numbness Skin lesions GERD (gastroesophageal reflux disease) Iron deficiency anemia due to chronic blood loss Class 1 obesity with body mass index (BMI) of 32.0 to 32.9 in adult Tonsillectomy planned Burning reflux Family History Family History Father Stroke Parkinsons disease Lewy body dementia Mother Lung cancer Maternal Grandmother Throat cancer Lung cancer Paternal Grandmother Stomach cancer Maternal Grandfather No problems noted. Paternal Grandfather No problems noted. Maternal Aunt Ovarian cancer Paternal Aunt Ovarian cancer Breast cancer Surgical History Surgical History History of bilateral breast reduction surgery History of hernia repair History of tonsillectomy History of section H/O abdominoplasty Hx of breast reduction, elective History of gastric surgery LAP-BAND surgery status Tubal ligation status Social History Social History Housing: House Alcohol intake: never Patient Tobacco Use Status: Never used Tobacco e-Cigarette/Vaping Use: Never Used Second Hand Smoke Exposure: No Are you DNR?: No Advance Directives: No Advance Directives Information Provided: Yes Recently lost weight without trying: No Eating poorly because of decreased appetite: No Nutrition Risks: No Nutritional Risk Patient : No service: No Current occupational status: disabled Cognitive needs: No Hearing needs: No Vision needs: Yes (glasses) Meds Allergies Allergy/AdvReac Type Severity Reaction Status Date / Time No Known Allergies Allergy Verified 12/18/22 10:13 Home Medications Medication Instructions Recorded Confirmed Last Taken Type celebrate bariatric MVI PO DAILY 06/18/21 12/18/22 Unknown History celebrate Alhaji + D PO BID 07/30/21 12/18/22 Unknown History Exam Exam Date and Time: December 22, 2022 1052 Pertinent Lab Results Pertinent Lab Results: Laboratory Tests 11/05/22 10:26 WBC 8.8 Hgb 10.6 L Hct 35.0 L Plt Count 427 H Sodium 140 Potassium 3.9 Chloride 111 H Carbon Dioxide 21 L BUN 10 Creatinine 0.78 Assessment and Plan Assessment Anesthesia Assessment: Chart Reviewed Documented by User: David Pulido MD 12/23/22 08:41 [facility] Past Medical History Medical History Hand pain Leg pain Right arm pain Scoliosis Left foot pain Hand numbness Skin lesions GERD (gastroesophageal reflux disease) Iron deficiency anemia due to chronic blood loss Class 1 obesity with body mass index (BMI) of 32.0 to 32.9 in adult Tonsillectomy planned Burning reflux Family History Family History Father Stroke Parkinsons disease Lewy body dementia Mother Lung cancer Maternal Grandmother Throat cancer Lung cancer Paternal Grandmother Stomach cancer Maternal Grandfather No problems noted. Paternal Grandfather No problems noted. Maternal Aunt Ovarian cancer Paternal Aunt Ovarian cancer Breast cancer Family history of problems with anesthesia: No Surgical History Surgical History History of bilateral breast reduction surgery History of hernia repair History of tonsillectomy History of section H/O abdominoplasty Hx of breast reduction, elective History of gastric surgery LAP-BAND surgery status Tubal ligation status History of Problems with Anesthesia: No Social History Social History Housing: House Alcohol intake: never Patient Tobacco Use Status: Never used Tobacco e-Cigarette/Vaping Use: Never Used Second Hand Smoke Exposure: No Are you DNR?: No Advance Directives: No Advance Directives Information Provided: Yes Recently lost weight without trying: No Eating poorly because of decreased appetite: No Nutrition Risks: No Nutritional Risk Patient : No service: No Current occupational status: disabled Cognitive needs: No Hearing needs: No Vision needs: Yes (glasses) Meds Allergies Allergy/AdvReac Type Severity Reaction Status Date / Time No Known Allergies Allergy Verified 12/18/22 10:13 Home Medications Medication Instructions Recorded Confirmed Last Taken Type celebrate bariatric MVI PO DAILY 06/18/21 12/18/22 Unknown History celebrate Alhaji + D PO BID 07/30/21 12/18/22 Unknown History Exam Airway Mallampati Class: III TM Dist: >3cm Neck ROM: Full Loose/Missing/Broken Teeth: No Heart: [id number] Lungs: cta b/l Assessment and Plan Assessment Anesthesia Assessment: Anesthesia Plan Discussed Final Anesthetic Review Family History of Problems with Anesthesia: No History of Problems with Anesthesia: No NPO: Yes ASA Class: III Final Preanesthetic Review: No Changes in Pt Med Stat, Meds/Allgs Chart Reviewed, Consent Obtained/Reviewed and Anes Risks/Benef Reviewed Patient Risk: Intermediate Procedure Risk: Intermediate Assessment/Block/Sedation in SS: Assess/Block/Sedation-SS Anesthetic Plan Anesthetic Plan: MAC: and Agree w/ Assess. and Plan Disposition: Standard PACU
[2022-12-23 08:29] VITALS: BP 112/67; PULSE 82; RESP 18; TEMP 36.1; O2SAT 99; BMI 35.7
[2022-12-23] MEDS: Lactated Ringers 1,000 ML 100 ML IVCONT (08:33)
--- NOTE | 2022-12-23 08:41 | PM.OP ---
Brief Operative Note Date of Service: 12/23/22 Pre-op diagnosis: Diaphragmatic hernia and GERD, s/p sleeve gastrectomy Post-op diagnosis: same Procedure: PROCEDURE DATE: 12/23/2022 PREOPERATIVE DIAGNOSIS: GERD, s/p sleeve gastrectomy POSTOPERATIVE DIAGNOSIS: ?Same as above. 1) hiatal hernia, 2) distal gastritis PROCEDURE: [id number] with biopsies Surgeon: ?Mark Kimble M.D.. Ph.D. [employer] Consultant: None ? Anesthesia: IV sedation Estimated blood loss: ?Minimal FINDINGS AND PROCEDURE: ? OPERATIVE INDICATIONS: ?The patient is a 42 year old female known to me who underwent a lap band procedure by Dr. Pitt, followed by lap band removal and laparoscopic sleeve gastrectomy by Dr. Brady. The patient had inadequate weight loss so far and had a completely uneventful recovery.?Recent UGI shows GERD and a moderate saize diaphragmatic hernia. Based on this information I recommended an upper endoscopy to evaluate the patient's symptoms. Risks and complications of the surgery were discussed with the patient in advance particularly the possibility of perforation or bleeding that may require surgical intervention. The patient understood the risks and was in agreement with the plan. ? PROCEDURE: After informed consent was obtained by the patient, the patient was ?transferred to the Operating Room and was placed in the supine position.? After successful induction of IV sedation, a mouth block was inserted and the patient was placed in the left lateral decubitus position. An upper endoscopy was performed next, the oropharynx and esophagus appeared within the normal limits. There was a small 2-3 cm hiatal hernia. The z-line was smooth. Two biopsies were obtained from the distal esophagus 2-3 cm proximal to the GE junction and two additional biopsies from the GE junction. The sleeve was entered and it appeared to be of normal size. There is no significant redundancy and the caliber is normal and even throughout. There was no gastritis, There was no stricture or ulcer. Biopsies were obtained from the proximal sleeve as well as the distal antrum. No significant bleeding was noted from any of the biopsy sites. The scope was then advanced into the duodenum which appeared to be normal as well. At that point the duodenum ?and the sleeve were decompressed and the scope was withdrawn from the patient's mouth. The patient extubated and was transferred in stable condition to the Recovery Room for further care. I was present and performed all steps of the procedure. There were no residents to assist with this case. Mark Kimble M.D., Ph.D. Surgeon: Azar Kimble MD Anesthesia: MAC Was an [employer] D[employer] Consultant used for this Procedure?: No Estimated blood loss (mL): 0 IV fluids (mL): 400 Urine output (mL): 0 (No Ellis to record output) Pathology: other (1) antrum x1, 2) proximal sleeve/gastric fundus x1, 3) EGJ x2, 4) distal esophagus x2) Condition: stable Disposition: PACU
[2022-12-23 09:11] VITALS: BP 105/63; PULSE 83; RESP 16; TEMP 36.2; O2SAT 99
[2022-12-23 09:26] VITALS: BP 113/70; PULSE 81; RESP 14; O2SAT 100
[2022-12-23 09:41] VITALS: BP 112/73; PULSE 79; RESP 14; TEMP 36.5; O2SAT 100
== END 2022-12-23 09:49 | disposition home or self-care (01) ==
PROVIDERS: PCP Internal Medicine; Visit Provider Surgery
PROC: 0DJ08ZZ Inspection of Upper Intestinal Tract, Via Natural or Artificial Opening Endoscopic (ICD-10-PCS; CPT 43235; principal; 2022-12-23 09:30)
DX: K21.9 Gastro-esophageal reflux disease without esophagitis (principal); K44.9 Diaphragmatic hernia without obstruction or gangrene; Z98.84 Bariatric surgery status; Z90.3 Acquired absence of stomach [part of]; E66.9 Obesity, unspecified; Z68.35 Body mass index [BMI] 35.0-35.9, adult; Z79.899 Other long term (current) drug therapy
CPT/HCPCS: 43239; 88305; 88342; J2250

== ENCOUNTER → 2022-12-23 07:51 | Outpatient (BNV) | payer OTHER, SELFPAY | PROVIDERS: PCP Internal Medicine; Visit Provider Surgery | DX: K21.9 Gastro-esophageal reflux disease without esophagitis (principal); K29.70 Gastritis, unspecified, without bleeding | CPT/HCPCS: 43239 ==

== ENCOUNTER 2023-03-13 08:00 | Outpatient (RCR) | payer OTHER, SELFPAY | END 2023-06-10 15:52 | disposition home or self-care (01) | LOC: HO.PT 08:00 | PROVIDERS: PCP Internal Medicine; Visit Provider Nurse Practitioner Family | DX: G43.909 Migraine, unspecified, not intractable, without status migrainosus (principal) | CPT/HCPCS: 97110; 97140; 97162 ==

== ENCOUNTER 2023-04-14 09:44 | Outpatient (AMB) | payer OTHER, SELFPAY ==
--- NOTE | 2023-04-14 09:45 | A.OFFPC_ITS ---
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5 mg PO DAILY 25 days rizatriptan 10 mg PO Q2-4H PRN 30 days semaglutide (weight loss) (Wegovy) 0.25 mg (0.5 mL) subcut QWEEK 28 days thiamine HCl (vitamin B1) 100 mg PO DAILY Tobacco use date assessed: 04/14/23 Dental Screening Dental Screen Date: 04/14/23 Did you have a dental visit in the last 12 months?: No Did you have a dental problem in the last 6 months where you did not have access to dental care?: No Was dental information given to patient?: Patient has dentist HPI HPI Comments History of Present Illness Details This is a 42-year-old female with GERD, migraines, microcytic anemia and obesity that comes today complaining of weight gain for the past 4-6 months. She used phentermine occasionally which used to work but not anymore. She goes to weight management and follows with bariatric surgeon Dr. Kilgore in [place] after her bariatric surgery. Is doing 2 protein shakes a day and only 1 meal counting 6 forks for protein and 8 forks for vegetables. I will prescribe Wegovy due to this matter. GERD has been stable with PPIs. Migraines are follow by Neurology which replace sumatriptan with rizatriptan and added Aim ovig. Neurology also discontinue Topamax. Has microcytic anemia and this will be monitor. Denies any active bleeding. Compliant with medications. [facility] Medical History (Updated 04/14/23 @ 11:04 by Catrina Cruz MD) Hand pain Leg pain Right arm pain Scoliosis Left foot pain Hand numbness Skin lesions GERD (gastroesophageal reflux disease) Iron deficiency anemia due to chronic blood loss Class 1 obesity with body mass index (BMI) of 32.0 to 32.9 in adult Tonsillectomy planned Burning reflux Surgical History History of breast reconstruction History of bilateral breast reduction surgery History of hernia repair History of tonsillectomy History of section H/O abdominoplasty Hx of breast reduction, elective History of gastric surgery LAP-BAND surgery status Tubal ligation status Family History Father Stroke Parkinsons disease Lewy body dementia Mother Lung cancer Maternal Grandmother Throat cancer Lung cancer Paternal Grandmother Stomach cancer Maternal Grandfather No problems noted. Paternal Grandfather No problems noted. Maternal Aunt Ovarian cancer Paternal Aunt Ovarian cancer Breast cancer Social History Housing: House Alcohol intake: never Patient Tobacco Use Status: Never used Tobacco e-Cigarette/Vaping Use: Never Used Second Hand Smoke Exposure: No service: No Current occupational status: disabled Cognitive needs: No Hearing needs: No Vision needs: Yes (glasses) Female Reproductive History Menstrual Age of Menarche: 6 Questionnaire PHQ-9 Over the last 2 weeks, how often have you been bothered by any of the following problems? 1. Little interest or pleasure in doing things: not at all 2. Feeling down, depressed, or hopeless: not at all 3. Trouble falling or staying asleep, or sleeping too much: not at all 4. Feeling tired or having little energy: not at all 5. Poor appetite or overeating: not at all 6. Feeling bad about yourself - or that you are a failure or have let yourself or your family down: not at all 7. Trouble concentrating on things, such as reading the newspaper or watching television: not at all 8. Moving or speaking so slowly that other people could have noticed. Or the opposite - being so fidgety or restless that you have been moving around a lot more than usual: not at all 9. Thoughts that you would be better off or of hurting yourself in some way: not at all Total score: 0 Depression Screening Interpretation: Negative Depression Screening Done: Yes 14900 - PHQ-9 Billing: Yes Source: Developed by Drs. Gomez Grajeda, Dahlia Jerome, Juan Carlos Deluna and colleagues, with an educational jitendra from [employer]. Thrive Questionnaire Date Thrive assessed: 04/14/23 I am a: Patient What is your living situation today?: I have a steady place to live Within the past 12 months, did the food you bought not last and you didn't have the money to get more?: Never true Within the past 12 months, did you worry whether your food would run out before you got money to buy more?: Never true Do you have trouble paying for medicines?: No Do you have trouble getting transportation to medical appointments?: No Do you have trouble paying your heating and electricity bill?: No Do you have trouble taking care of your child, family member or friend?: No Do you have trouble with day-to-day activities such as bathing, preparing meals, shopping, managing finances, etc.?: No Are you currently unemployed and looking for a job?: No Are you interested in more education?: No Please select the resources that you would like help with: None Currently or been in a relationship where the following occur: no concerns reported THRIVE Score: 0 AUDIT C Alcohol Use Questionnaire (AUDIT-C) 1. How often do you have a drink containing alcohol?: Never Total Score: 0 GARY-7 AMB Questionnaire GARY-7 Date GARY - 7 assessed: 04/14/23 Feeling nervous, anxious, or on edge: 0 = Not at all Not being able to stop or control worryin = Not at all Worrying too much about different things: 0 = Not at all Trouble relaxin = Not at all Being so restless that it is hard to sit still: 0 = Not at all Becoming easily annoyed or irritable: 0 = Not at all Feeling afraid as if something awful might happen: 0 = Not at all Total GARY-7 score (0-4 normal; 5-9 mild; 10-14 moderate; 15-21 severe): 0 Source: Developed by Drs. Gomez Grajeda, Dahlia Jerome, Juan Carlos Deluna and colleagues, with an educational jitendra from [employer]. GARY-7 Assessment Billing GARY-7 Assessment Tool: GARY-7 Assessment 83853 Review of Systems Const All systems reviewed & are unremarkable except as noted in HPI and below Eyes Reports no additional complaints, Denies change in vision and Denies other visual disturbances Card Denies chest pain at rest, Denies chest pain with activity, Denies edema, Denies irregular heart rhythm, Denies claudication, Denies dyspnea, Denies dyspnea on exertion, Denies orthopnea, Denies paroxysmal nocturnal dyspnea and Denies slow heart rate Resp Denies cough, Denies dyspnea and Denies dyspnea on exertion GI Denies abdominal pain, Denies change in bowel habits, Denies excessive flatus, Denies nausea and Denies vomiting Denies urinary incontinence, Denies urinary hesitancy and Denies urinary urgency Musc Denies abnormal gait, Denies atrophy, Denies deformity and Denies limited range of motion Skin/Breast Denies bleeding lesions, Denies changing lesions and Denies rash Neuro Denies abnormal gait, Denies behavioral changes and Denies lack of coordination Psych Denies behavioral changes Physical exam (Primary Care) Vital Signs: Last Vital Signs BP 118/80 04/14/23 09:47 BMI result Body Mass Index 34.5 Tobacco/Smoking Status: Tobacco use Status Tobacco use date assessed 04/14/23 04/14/23 09:55 Patient Tobacco Use Status Never used Tobacco 04/14/23 09:55 e-Cigarette/Vaping Use Never Used 04/14/23 09:55 PHQ-9: PHQ-9 Score PHQ-9: Total score 0 04/14/23 10:04 Depression Screening Interpretation: Negative Thrive Assessment: Date of Thrive Assessment Date Thrive assessed 04/14/23 04/14/23 09:55 Currently or been in a relationship where the following occur: no concerns reported Eyes General: appearance normal, both eyes and all related structures Eyelids: Yes eyelids normal Conjunctivae: conjunctivae normal Neck Neck: Yes normal visual inspection and Yes supple Resp Effort & Inspection: normal respiratory effort Auscultation: clear to auscultation bilaterally Cardio Jugular venous distension: no JVD Rate: regular rate Rhythm: regular rhythm Heart sounds: S1 normal heart sound present and S2 normal heart sound present Extrem General: Yes full ROM Assessment and Plan Assessment & Plan (1) GERD (gastroesophageal reflux disease): Code(s): K21.9 - Gastro-esophageal reflux disease without esophagitis Qualifiers: Esophagitis presence: without esophagitis Qualified Code(s): K21.9 - Gastro-esophageal reflux disease without esophagitis Plan: Continue PPIs. (2) Migraines: Code(s): G43.909 - Migraine, unspecified, not intractable, without status migrainosus Qualifiers: Migraine type: migraine (< 15 days per month) without aura Status migrainosus presence: without status migrainosus Intractability: not intractable Qualified Code(s): G43.009 - Migraine without aura, not intractable, without status migrainosus Plan: Follow-up with neurology. Continue rizatriptan as needed. Continue Aimovig. (3) Obesity (BMI 30.0-34.9): Code(s): E66.9 - Obesity, unspecified Plan: Start Wegovy if insurance approves. Continue weight management. (4) Microcytic anemia: Code(s): D50.9 - Iron deficiency anemia, unspecified Plan: Continue Vitron-C. Monitor hemoglobin. Hemoglobin electrophoresis order. Orders: Orders Complete Blood Count Auto Diff Today D64.9 - Anemia, unspecified Thyroid Stimulating Hormone Today R63.5 - Abnormal weight gain Comprehensive Met. Panel Today R63.5 - Abnormal weight gain IRON PROFILE Today D64.9 - Anemia, unspecified Vitamin D 25-OH Total Today E55.9 - Vitamin D deficiency, unspecified Vitamin B12 and Folate Today E53.8 - Deficiency of other specified B group vitamins Hemoglobin Electrophoresis Today D50.9 - Iron deficiency anemia, unspecified Medications: New rizatriptan do not exceed 3 doses per 24 hrs 10 mg PO Q2-4H 30 days PRN 9 tabs 0RF migraine headache semaglutide (weight loss) (Wegovy) administer weeks 1 through 4 of therapy 0.25 mg (0.5 mL) subcut QWEEK 28 days 2 mL 0RF E66.9 - Obesity, unspecified furosemide 20 mg PO Q OTHER DAY 30 days PRN 15 tabs 0RF edema Discontinued sumatriptan succinate do not exceed 8 doses per 24 hrs Discontinued Reason: Patient Completed Course 25 mg PO Q2-4H 30 days PRN 9 tabs 0RF migraine headache topiramate Discontinued Reason: Patient Completed Course 50 mg PO BEDTIME 90 days 90 tabs 0RF Coding Level of Care Code Est Pt Level 4 (28903) Diagnoses Gastroesophageal reflux disease without esophagitis K21.9 Esophagitis presence: without esophagitis Migraine without aura and without status migrainosus, not intractable G43.009 Migraine type: migraine (< 15 days per month) without aura Status migrainosus presence: without status migrainosus Intractability: not intractable Obesity (BMI 30.0-34.9) E66.9 Microcytic anemia D50.9 Additional Codes GARY-7 Assessment Billing - GARY-7 Assessment Tool: GARY-7 Assessment 99133 ([id number]) Time Spent (min) 25
[2023-04-14 09:47] VITALS: BP 118/80; BMI 34.5
== END 2023-04-14 10:18 | disposition home or self-care (01) ==
PROVIDERS: PCP Internal Medicine; Visit Provider Internal Medicine
DX: K21.9 Gastro-esophageal reflux disease without esophagitis (principal); G43.009 Migraine without aura, not intractable, without status migrainosus; E66.9 Obesity, unspecified; Z68.34 Body mass index [BMI] 34.0-34.9, adult; D50.9 Iron deficiency anemia, unspecified
CPT/HCPCS: 99214

== ENCOUNTER 2023-04-14 10:21 | Outpatient (REF) | payer OTHER, SELFPAY ==
[2023-04-14 11:48] LABS: Basophils Absolute Auto 0.1 X10*3/uL (0.0-0.2); Basophils Percent Auto 0.7 % (0-2); Eosinophils Absolute Auto 0.1 X10*3/uL (0.0-0.4); Eosinophils Percent Auto 0.7 % (0-4); Hematocrit 39.6 % (37.0-47.0); Hemoglobin 12.6 g/dl (12.0-16.0); Imm Gran Abs Auto 0.06 X10*3/uL (0.00-0.03); Imm Gran Pct Auto 0.7 % (0.0-0.4); Lymphocytes Absolute Auto 2.2 X10*3/uL (1.2-4.9); MANUAL DIFF FLAG NO; Mean Corpuscular HGB Conc 31.8 g/dl (31.0-35.0); Mean Corpuscular Hemoglobin 28.1 pg (27.0-33.0); Mean Corpuscular Volume 88.4 fL (80.0-98.0); Mean Platelet Volume 10.4 fL (9.4-12.3); Monocytes Absolute Auto 0.7 X10*3/uL (0.1-1.2); Monocytes Percent Auto 7.6 % (2-11); Neutrophils Absolute Auto 5.5 x10*3/uL (2.0-8.3); Neutrophils Percent Auto 64.3 % (45-73); Platelet Count 368 X10*3/uL (160-400); Red Blood Count 4.48 X10*6/uL (4.20-5.50); White Blood Count 8.5 X10*3/uL (4.8-10.8)
[2023-04-14 12:31] LABS: Alanine Aminotransferase 16 U/L (0-31); Albumin Level 4.1 g/dL (3.5-5.0); Alkaline Phosphatase 50 U/L (39-117); Anion Gap 12 (12-20); Aspartate Amino Transferase 15 U/L (5-31); Bilirubin Total 0.4 mg/dL (0.0-1.0); Blood Urea Nitrogen 14 mg/dL (9-16); Calcium 9.7 mg/dL (8.4-10.2); Carbon Dioxide 26 mmol/L (22-29); Chloride 107 mmol/L (96-108); Cholesterol 175 mg/dL (<200); Estimated Glomerular Filt Rate > 60; Glucose Random 102 mg/dL (60-115); HDL Cholesterol 40 mg/dL (>40); Iron 116 mcg/dL (30-160); LDL Cholesterol Calculated 97 mg/dL (<100); Percent Iron Saturation 31 % (15-50); Potassium 4.1 mmol/L (3.3-5.1); Sodium 141 mmol/L (135-145); Total Iron Binding Capacity 379 mcg/dL (228-428); Triglycerides 190 mg/dL (<150); Unsaturated Iron Binding 263 ug/dL
[2023-04-14 12:33] LABS: Thyroid Stimulating Hormone 0.98 uIU/mL (0.32-4.0); Vitamin D 25-OH Total 31.9 ng/mL (>30)
[2023-04-14 12:42] LABS: Folate 12.9 ng/mL (> or = 4.0); Vitamin B12 470 pg/mL (200-900)
[2023-04-24 08:09] LABS: Hematocrit 38.4 % (35.0-45.0); Hemoglobin 12.9 g/dL (11.7-15.5); MCH 28.8 pg (27.0-33.0); MCV 85.7 fL (80.0-100.0); RBC 4.48 Million/uL (3.80-5.10); RDW 12.9 % (11.0-15.0)
== END 2023-04-14 10:22 | disposition home or self-care (01) ==
LOC: HO.LAB 10:21
PROVIDERS: Visit Provider Internal Medicine
DX: Z00.00 Encounter for general adult medical examination without abnormal findings (principal); R63.5 Abnormal weight gain; E55.9 Vitamin D deficiency, unspecified; E53.8 Deficiency of other specified B group vitamins; D50.9 Iron deficiency anemia, unspecified
CPT/HCPCS: 36415; 80053; 80061; 82306; 82607; 82746; 83020; 83540; 84443; 85014; 85018; 85025; 85041

== ENCOUNTER 2023-09-30 08:09 | Outpatient (AMB) | payer OTHER, SELFPAY ==
[2023-09-30 08:34] VITALS: BP 110/70; BMI 29.1
--- NOTE | 2023-09-30 08:34 | A.OFFPC_ITS ---
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: No Accompanied by: Significant Other Allergies No Known Allergies Allergy (Verified 09/30/23 09:05) Medication List - Last Reconciled 09/30/23 by Catrina Cruz MD [celebrate bariatric MVI PO DAILY] [celebrate Alhaji + D PO BID] diphenhydramine HCl (Benadryl) 25 mg PO BID PRN erenumab-aooe (Aimovig Autoinjector) mg subcut furosemide 20 mg PO Q OTHER DAY PRN 30 days hydroxyzine pamoate 25 mg PO BEDTIME PRN 90 days iron,carbonyl-vitamin C 65 mg iron- 125 mg (Vitron-C) 1 tab PO BEDTIME metoclopramide HCl (Reglan) 10 mg PO Q6H PRN omeprazole 40 mg (2 x 20 mg) PO DAILY rizatriptan 10 mg PO Q2-4H PRN 30 days semaglutide (weight loss) (Wegovy) 2.4 mg (0.75 mL) subcut QWEEK 4 weeks thiamine HCl (vitamin B1) 100 mg PO DAILY Tobacco use date assessed: 04/14/23 Dental Screening Dental Screen Date: 04/14/23 HPI HPI Comments History of Present Illness Details This is a 42-year-old female that comes today accompanied by complaining of fatigue and tiredness that has been present for few months. Also has right shoulder, right elbow and right wrist pain that started few weeks ago after doing some work on her home. She is not able to lift over 5 lb due to right arm weakness. Right shoulder hurts when arm is down and right elbow hurts with some movements as well as wrist. I will order x-ray, start her on physical therapy and occupational therapy and also refer her to ortho. She had a previous episode similar to this 1 few years ago that resolved with physical therapy. [facility] Medical History (Updated 09/30/23 @ 12:44 by Catrina Cruz MD) Hand pain Leg pain Right arm pain Scoliosis Left foot pain Hand numbness Skin lesions GERD (gastroesophageal reflux disease) Iron deficiency anemia due to chronic blood loss Class 1 obesity with body mass index (BMI) of 32.0 to 32.9 in adult Tonsillectomy planned Burning reflux Surgical History History of breast reconstruction History of bilateral breast reduction surgery History of hernia repair History of tonsillectomy History of section H/O abdominoplasty Hx of breast reduction, elective History of gastric surgery LAP-BAND surgery status Tubal ligation status Family History Father Stroke Parkinsons disease Lewy body dementia Mother Lung cancer Maternal Grandmother Throat cancer Lung cancer Paternal Grandmother Stomach cancer Maternal Grandfather No problems noted. Paternal Grandfather No problems noted. Maternal Aunt Ovarian cancer Paternal Aunt Ovarian cancer Breast cancer Social History Housing: House Alcohol intake: never Patient Tobacco Use Status: Never used Tobacco e-Cigarette/Vaping Use: Never Used Second Hand Smoke Exposure: No service: No Current occupational status: disabled Cognitive needs: No Hearing needs: No Vision needs: Yes (glasses) Female Reproductive History Menstrual Age of Menarche: 6 Questionnaire Thrive Questionnaire Date Thrive assessed: 04/14/23 GARY-7 AMB Questionnaire GARY-7 Date GARY - 7 assessed: 04/14/23 Source: Developed by Drs. Gomez Grajeda, Dahlia Jerome, Juan Carlos Deluna and colleagues, with an educational jitendra from [employer]. Review of Systems Const All systems reviewed & are unremarkable except as noted in HPI and below Card Denies chest pain at rest, Denies chest pain with activity, Denies edema, Denies irregular heart rhythm, Denies claudication, Denies dyspnea, Denies dyspnea on exertion, Denies orthopnea, Denies paroxysmal nocturnal dyspnea and Denies slow heart rate Resp Denies cough, Denies dyspnea and Denies dyspnea on exertion Musc Denies atrophy, Denies deformity and Denies limited range of motion Neuro Denies confusion Psych Denies confusion Physical exam (Primary Care) Vital Signs: Last Vital Signs BP 110/70 09/30/23 08:34 BMI result Body Mass Index 29.1 Tobacco/Smoking Status: Tobacco use Status Tobacco use date assessed 04/14/23 09/30/23 08:37 Patient Tobacco Use Status Never used Tobacco 09/30/23 08:37 e-Cigarette/Vaping Use Never Used 09/30/23 08:37 Thrive Assessment: Date of Thrive Assessment Date Thrive assessed 04/14/23 09/30/23 08:37 Const General: No confusion Orientation/consciousness: patient oriented x3 and No confusion Resp Effort & Inspection: normal respiratory effort Auscultation: clear to auscultation bilaterally Cardio Jugular venous distension: no JVD Rate: regular rate Rhythm: regular rhythm Heart sounds: S1 normal heart sound present and S2 normal heart sound present Neuro General: patient oriented x3, no focal motor deficits and No confusion Extrem General: Yes full ROM Right upper extremity: shoulder/upper arm Details: tenderness, elbow/forearm Details: tenderness and wrist Details: tenderness and abnormal ROM Details: pain with active ROM during Details: with extension and with flexion Assessment and Plan Assessment & Plan (1) Right wrist pain: Code(s): M25.531 - Pain in right wrist Plan: X-ray ordered. Start occupational therapy. (2) Right elbow pain: Code(s): M25.521 - Pain in right elbow Plan: X-ray ordered. Start occupational therapy. Referred to Ortho. (3) Right shoulder pain: Code(s): M25.511 - Pain in right shoulder Qualifiers: Chronicity: acute Qualified Code(s): M25.511 - Pain in right shoulder Plan: X-ray ordered. Start occupational therapy. Referred to Ortho. (4) Fatigue: Code(s): R53.83 - Other fatigue Qualifiers: Fatigue type: chronic, unspecified Qualified Code(s): R53.82 - Chronic fatigue, unspecified Plan: Labs ordered. Orders: Orders XR shoulder RT min 2V Today M25.511 - Pain in right shoulder XR elbow RT 2V Today M25.521 - Pain in right elbow OT Evaluation and Treatment Today M25.521 - Pain in right elbow, M25.531 - Pain in right wrist Vitamin B12 and Folate Today E53.8 - Deficiency of other specified B group vitamins Vitamin D 25-OH Total Today E55.9 - Vitamin D deficiency, unspecified Thyroid Stimulating Hormone Today R53.83 - Other fatigue XR wrist RT 2V Today M25.531 - Pain in right wrist PT Evaluation and Treatment Today M25.511 - Pain in right shoulder Complete Blood Count Auto Diff Today D64.9 - Anemia, unspecified IRON PROFILE Today D64.9 - Anemia, unspecified Lipid Panel Today E78.5 - Hyperlipidemia, unspecified Comprehensive [place]. Panel Fast Today R53.83 - Other fatigue Referrals Orthopedics Referral M25.511 - Pain in right shoulder, M25.521 - Pain in right elbow, M25.531 - Pain in right wrist Coding Level of Care Code Est Pt Level 4 (01606) Complex EM visit Add On G2211 Diagnoses Right wrist pain M25.531 Right elbow pain M25.521 Acute pain of right shoulder M25.511 Chronicity: acute Chronic fatigue R53.82 Fatigue type: chronic, unspecified Time Spent (min) 20
== END 2023-09-30 09:16 | disposition home or self-care (01) ==
PROVIDERS: PCP Internal Medicine; Visit Provider Internal Medicine
DX: M25.531 Pain in right wrist (principal); M25.521 Pain in right elbow; M25.511 Pain in right shoulder; R53.82 Chronic fatigue, unspecified
CPT/HCPCS: 99214; G2211

== ENCOUNTER 2023-10-01 09:09 | Outpatient (REF) | payer OTHER, SELFPAY ==
--- NOTE | ~2023-10-01 | XR_ITS ---
EXAMINATION: Right wrist series. Right elbow series. Right shoulder series. CLINICAL INFORMATION: Pain in the right 1st elbow and shoulder. COMPARISON: None. TECHNIQUE: 4 views of the right breast. 3 views of the right elbow. 4 views of the right shoulder. FINDINGS: Right wrist: The bony structures and soft tissues are normal. No fracture. Normal alignment. Right elbow: The postoperative soft tissues are normal. No fracture. No effusion. Right shoulder: Joints and soft tissues are normal. No fracture. Normal alignment. XR/XR wrist RT 2V IMPRESSION: RIGHT WRIST: Normal. RIGHT ELBOW: Normal. RIGHT SHOULDER: Normal. Electronically signed by: Efren Pierre MD 11/05/2023 07:25 AM EDT RP
--- NOTE | ~2023-10-01 | XR_ITS ---
EXAMINATION: Right wrist series. Right elbow series. Right shoulder series. CLINICAL INFORMATION: Pain in the right 1st elbow and shoulder. COMPARISON: None. TECHNIQUE: 4 views of the right breast. 3 views of the right elbow. 4 views of the right shoulder. FINDINGS: Right wrist: The bony structures and soft tissues are normal. No fracture. Normal alignment. Right elbow: The postoperative soft tissues are normal. No fracture. No effusion. Right shoulder: Joints and soft tissues are normal. No fracture. Normal alignment. XR/XR elbow RT 2V IMPRESSION: RIGHT WRIST: Normal. RIGHT ELBOW: Normal. RIGHT SHOULDER: Normal. Electronically signed by: Efren Pierre MD 11/05/2023 07:25 AM EDT RP
--- NOTE | ~2023-10-01 | XR_ITS ---
EXAMINATION: Right wrist series. Right elbow series. Right shoulder series. CLINICAL INFORMATION: Pain in the right 1st elbow and shoulder. COMPARISON: None. TECHNIQUE: 4 views of the right breast. 3 views of the right elbow. 4 views of the right shoulder. FINDINGS: Right wrist: The bony structures and soft tissues are normal. No fracture. Normal alignment. Right elbow: The postoperative soft tissues are normal. No fracture. No effusion. Right shoulder: Joints and soft tissues are normal. No fracture. Normal alignment. XR/XR shoulder RT min 2V IMPRESSION: RIGHT WRIST: Normal. RIGHT ELBOW: Normal. RIGHT SHOULDER: Normal. Electronically signed by: Efren Pierre MD 11/05/2023 07:25 AM EDT RP
[2023-10-01 09:27] LABS: MANUAL DIFF FLAG NO
[2023-10-01 10:18] LABS: Alanine Aminotransferase 12 U/L (0-31); Albumin Level 4.4 g/dL (3.5-5.0); Alkaline Phosphatase 49 U/L (39-117); Anion Gap 11 (12-20); Aspartate Amino Transferase 15 U/L (5-31); Bilirubin Total 0.3 mg/dL (0.0-1.0); Blood Urea Nitrogen 9 mg/dL (9-16); Calcium 9.7 mg/dL (8.4-10.2); Carbon Dioxide 26 mmol/L (22-29); Chloride 109 mmol/L (96-108); Cholesterol 194 mg/dL (<200); Estimated Glomerular Filt Rate > 60; Glucose Fasting 98 mg/dL (60-99); HDL Cholesterol 43 mg/dL (>40); Iron 24 mcg/dL (30-160); LDL Cholesterol Calculated 123 mg/dL (<100); Percent Iron Saturation 7 % (15-50); Potassium 4.4 mmol/L (3.3-5.1); Sodium 142 mmol/L (135-145); Total Iron Binding Capacity 335 mcg/dL (228-428); Total Protein 7.2 g/dL (6.5-8.0); Triglycerides 140 mg/dL (<150); Unsaturated Iron Binding 311 ug/dL
[2023-10-01 10:23] LABS: Thyroid Stimulating Hormone 0.96 uIU/mL (0.32-4.0); Vitamin D 25-OH Total 41.9 ng/mL (>30)
[2023-10-01 10:28] LABS: Basophils Percent Auto 0.6 % (0-2); Eosinophils Absolute Auto 0.1 X10*3/uL (0.0-0.4); Hemoglobin 11.4 g/dl (12.0-16.0); Imm Gran Abs Auto 0.02 X10*3/uL (0.00-0.03); Imm Gran Pct Auto 0.3 % (0.0-0.4); Lymphocytes Percent Auto 29.1 % (20-40); Mean Corpuscular HGB Conc 31.7 g/dl (31.0-35.0); Mean Corpuscular Hemoglobin 26.8 pg (27.0-33.0); Mean Corpuscular Volume 84.5 fL (80.0-98.0); Mean Platelet Volume 9.7 fL (9.4-12.3); Monocytes Absolute Auto 0.5 X10*3/uL (0.1-1.2); Monocytes Percent Auto 7.2 % (2-11); Neutrophils Absolute Auto 4.3 x10*3/uL (2.0-8.3); Neutrophils Percent Auto 61.8 % (45-73); Platelet Count 396 X10*3/uL (160-400); Red Blood Count 4.26 X10*6/uL (4.20-5.50); Red Cell Distribution Width 15.2 % (11.0-16.0)
[2023-10-01 11:15] LABS: Folate 10.7 ng/mL (> or = 4.0); Vitamin B12 755 pg/mL (200-900)
== END 2023-10-01 09:10 | disposition home or self-care (01) ==
LOC: HO.LAB 09:09
PROVIDERS: PCP Internal Medicine; Visit Provider Internal Medicine
DX: M25.511 Pain in right shoulder (principal); M25.531 Pain in right wrist; M25.521 Pain in right elbow; D64.9 Anemia, unspecified; E55.9 Vitamin D deficiency, unspecified; R53.83 Other fatigue; E53.8 Deficiency of other specified B group vitamins; E78.5 Hyperlipidemia, unspecified
CPT/HCPCS: 36415; 73030; 73070; 73100; 80053; 80061; 82306; 82607; 82746; 83540; 84443; 85025

== ENCOUNTER 2023-10-19 14:41 | Outpatient (AMB) | payer OTHER, SELFPAY ==
--- NOTE | 2023-10-19 14:45 | MHC.OFFVIS ---
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 Pt states this started a few months ago with no known injury. Pt states the pain radiates from her shoulder down to her wrist. Pt states she was diagnosed with tennis elbow in the past as well as carpal tunnel. Pt states she does have a brace for her carpal tunnel but states that isnt helping anymore. She states her ROM in her right arm is limited.Pt states she also isnt able to pickup anything with that hand due to the pain. 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 The patient also reports she has numbness and tingling in bilateral hands, however this has been ongoing for approximately 3 years. The patient reports that her numbness and tingling are intermittent, but daily, and worse at night. The patient reports that she has been experiencing this pain for approximately 4-5 months, with no particular inciting event or injury. The patient reports that she has previously been diagnosed with both carpal tunnel syndrome and lateral epicondylitis in the right arm, but has had no treatment for either of these conditions. The patient reports that her pain is worst in the lateral epicondyle of her elbow, as well as in the ulnar aspect of the wrist. The patient reports that, occasionally, when she is dangling her right arm, she feels an ?tearing? sensation in her right shoulder, but states that this does not happen very frequently, and she feels that the pain in her wrist and elbow is of more concern to her. The patient reports that she has noticed diminished strength in her right hand over the last 5-6 months, and she feels she can not edge burnisher uppers as strongly as she could prior to onset of pain and numbness symptoms. No other acute complaints or concerns at this time. [facility] Medical History Hand pain Leg pain Right arm pain Scoliosis Left foot pain Hand numbness Skin lesions GERD (gastroesophageal reflux disease) Iron deficiency anemia due to chronic blood loss Class 1 obesity with body mass index (BMI) of 32.0 to 32.9 in adult Tonsillectomy planned Burning reflux Surgical History History of breast reconstruction History of bilateral breast reduction surgery History of hernia repair History of tonsillectomy History of section H/O abdominoplasty Hx of breast reduction, elective History of gastric surgery LAP-BAND surgery status Tubal ligation status Family History Father Stroke Parkinsons disease Lewy body dementia Mother Lung cancer Maternal Grandmother Throat cancer Lung cancer Paternal Grandmother Stomach cancer Maternal Grandfather No problems noted. Paternal Grandfather No problems noted. Maternal Aunt Ovarian cancer Paternal Aunt Ovarian cancer Breast cancer Social History Housing: House Alcohol intake: never Patient Tobacco Use Status: Never used Tobacco e-Cigarette/Vaping Use: Never Used Second Hand Smoke Exposure: No service: No Current occupational status: disabled Cognitive needs: No Hearing needs: No Vision needs: Yes (glasses) Female Reproductive History Menstrual Age of Menarche: 6 Physical Exam Extrem Other: Right elbow exam On inspection, there is no visible deformity of the left elbow No edema, erythema, ecchymosis noted No lacerations, abrasions, open areas No evidence of infection noted Patient reports significant tenderness to palpation of the lateral epicondyle of the left elbow No tenderness to palpation of the medial epicondyle of the elbow, the olecranon, or the flexor surface of the elbow Patient is able to extend the elbow to 0 degrees without difficulty Patient is able to flex the elbow to 160 degrees without difficulty Positive Cozen's test on the left Right wrist and hand exam Neuro: Normal sensation in all digits of bilateral hands at this time No thenar or intrinsic wasting. Good APB muscle belly firing bilaterally good finger cross. Vascular: Capillary refill brisk. Pain: Patient reports significant tenderness to palpation of the ulnar aspect of the right wrist, just distal to the ulnar styloid Significant discomfort with abduction of the right wrist ROM: Patient can make a fist and extend all their digits. Patient is able to flex and extend at the right wrist without difficulty Skin: No lacerations or abrasions noted. General: No ecchymosis. No erythema or evidence of infection. Positive Tinel's at the wrist on the right Results Reviewed Results Reviewed: X-rays obtained in the office today and independently reviewed by me, Say Ziegler PA-C, demonstrate no fracture or acute bony abnormality of the right shoulder, elbow, wrist and hand. Assessment & Plan Assessment & Plan (1) Right wrist tendinitis: Code(s): M77.8 - Other enthesopathies, not elsewhere classified Category: Medical (2) Right lateral epicondylitis: Code(s): M77.11 - Lateral epicondylitis, right elbow Category: Medical (3) Carpal tunnel syndrome, bilateral: Code(s): G56.03 - Carpal tunnel syndrome, bilateral upper limbs Category: Medical Plan 1. Carpal tunnel syndrome, right Symptoms intermittent, but daily, worse at night I educated the patient about the condition. I discussed both operative and nonoperative treatment options. The patient would like to proceed with surgery. The risks and benefits of operative treatment were discussed with the patient and the patient wishes to proceed with surgery. These risks include, but are not limited to, risk of damage to blood vessels, nerves, tendons, infection, recurrence, incomplete relief of preoperative symptoms, persistent pain, possible need for further surgery, and the risks associated with regional blocks and/or anesthesia. Plan is to take the patient to the operating room at some point in the next few weeks for the following procedures: 1. Right carpal tunnel release under local anesthesia All of the preoperative paperwork including the consent was discussed today. All of the patient's questions were answered in the clinic today. The patient understands that they will be in contact with our windows technical specialist to discuss scheduling their procedure. Patient denies diabetes, blood thinners, asthma, heart issues, lung issues, kidney issues, or current smoking. 2. Right lateral epicondylitis 3. Right wrist tendinitis At this time, the patient was referred to occupational therapy for treatment of right lateral epicondylitis and right wrist tendinitis The patient is informed that tendinitis is typically a long recovery period, with symptom relief taking weeks to even months Patient is amenable to this plan If patient does not notice any relief of her lateral epicondylitis with therapy in 6-8 weeks, they may call the office to make an appointment to discuss further treatment options, such as injection Number for carpal tunnel syndrome, left Symptoms intermittent, but daily, worse at night The patient would like to proceed with treatment of right carpal tunnel syndrome 1st, as she finds this side more bothersome We will explore further treatment options of left carpal tunnel syndrome after treatment of the right Patient is amenable to this plan Patient will follow-up as needed with any acute concerns Orders: Orders OT Evaluation and Treatment Today M77.11 - Lateral epicondylitis, right elbow, M77.8 - Other enthesopathies, not elsewhere classified Coding Level of Care Code New Pt Level 4 (26325) Diagnoses Right wrist tendinitis M77.8 Right lateral epicondylitis M77.11 Carpal tunnel syndrome, bilateral G56.03
== END 2023-10-19 16:13 | disposition home or self-care (01) ==
PROVIDERS: PCP Internal Medicine
DX: G56.03 Carpal tunnel syndrome, bilateral upper limbs (principal); M77.8 Other enthesopathies, not elsewhere classified; M77.11 Lateral epicondylitis, right elbow
CPT/HCPCS: 99204

== ENCOUNTER → 2023-10-19 14:41 | Outpatient (BNVA) | payer OTHER, SELFPAY | PROVIDERS: PCP Internal Medicine | DX: M77.8 Other enthesopathies, not elsewhere classified (principal); M77.11 Lateral epicondylitis, right elbow; G56.03 Carpal tunnel syndrome, bilateral upper limbs; M25.511 Pain in right shoulder | CPT/HCPCS: 99202 ==

== ENCOUNTER 2023-11-04 12:13 | Outpatient (AMB) | payer OTHER, SELFPAY ==
--- NOTE | 2023-11-04 12:33 | A.OFFPC_ITS ---
Vital Signs 11/04/23 12:34 Height 4 ft 11 in Weight 135 lb BMI 27.3 BP 102/68 Blood Pressure Location Lt brachial Position Sitting Intake Visit Reasons: Annual exam Intake Note: Patient here for a physical exam Rad Technologist Required: No Accompanied by: Self / Same As Patient Allergies No Known Allergies Allergy (Verified 11/04/23 12:44) Medication List - Last Reconciled 11/04/23 by Catrina Cruz MD [celebrate bariatric MVI PO DAILY] [celebrate Alhaji + D PO BID] diphenhydramine HCl (Benadryl) 25 mg PO BID PRN erenumab-aooe (Aimovig Autoinjector) mg subcut furosemide 20 mg PO Q OTHER DAY PRN 30 days hydroxyzine pamoate 25 mg PO BEDTIME PRN 90 days iron,carbonyl-vitamin C 65 mg iron- 125 mg (Vitron-C) 1 tab PO BEDTIME metoclopramide HCl (Reglan) 10 mg PO Q6H PRN omeprazole 40 mg (2 x 20 mg) PO DAILY rizatriptan 10 mg PO Q2-4H PRN 30 days semaglutide (weight loss) (Wegovy) 2.4 mg (0.75 mL) subcut QWEEK 4 weeks thiamine HCl (vitamin B1) 100 mg PO DAILY Tobacco use date assessed: 04/14/23 Dental Screening Dental Screen Date: 11/04/23 Did you have a dental visit in the last 12 months?: Yes Did you have a dental problem in the last 6 months where you did not have access to dental care?: No Was dental information given to patient?: Patient has dentist HPI HPI Comments History of Present Illness Details This is a 43-year-old female that comes accompanied by for her physical exam. Last Pap smear was last year at [facility]. She had a mammogram at [facility] in May of this year which as per patient will be repeated in January and disease by [facility] OBGYN. Colonoscopy was done over 10 years ago and will be refer through open access. Has mild major depression and I will start her on bupropion. She declines counseling for now. [facility] Medical History (Updated 11/04/23 @ 14:38 by Catrina Cruz MD) Hand pain Leg pain Right arm pain Scoliosis Left foot pain Hand numbness Skin lesions GERD (gastroesophageal reflux disease) Iron deficiency anemia due to chronic blood loss Class 1 obesity with body mass index (BMI) of 32.0 to 32.9 in adult Tonsillectomy planned Burning reflux Surgical History History of breast reconstruction History of bilateral breast reduction surgery History of hernia repair History of tonsillectomy History of section H/O abdominoplasty Hx of breast reduction, elective History of gastric surgery LAP-BAND surgery status Tubal ligation status Family History Father Stroke Parkinsons disease Lewy body dementia Mother Lung cancer Maternal Grandmother Throat cancer Lung cancer Paternal Grandmother Stomach cancer Maternal Grandfather No problems noted. Paternal Grandfather No problems noted. Maternal Aunt Ovarian cancer Paternal Aunt Ovarian cancer Breast cancer Social History Housing: House Alcohol intake: never Patient Tobacco Use Status: Never used Tobacco e-Cigarette/Vaping Use: Never Used Second Hand Smoke Exposure: No service: No Current occupational status: disabled Cognitive needs: No Hearing needs: No Vision needs: Yes (glasses) Female Reproductive History Menstrual Age of Menarche: 6 Questionnaire PHQ-9 Over the last 2 weeks, how often have you been bothered by any of the following problems? 1. Little interest or pleasure in doing things: several days 2. Feeling down, depressed, or hopeless: several days 3. Trouble falling or staying asleep, or sleeping too much: more than half the days 4. Feeling tired or having little energy: several days 5. Poor appetite or overeating: not at all 6. Feeling bad about yourself - or that you are a failure or have let yourself or your family down: not at all 7. Trouble concentrating on things, such as reading the newspaper or watching television: not at all 8. Moving or speaking so slowly that other people could have noticed. Or the opposite - being so fidgety or restless that you have been moving around a lot more than usual: not at all 9. Thoughts that you would be better off or of hurting yourself in some way: not at all Total score: 5 Depression Screening Interpretation: Positive Depression Screening Follow-up: Existing condition, New Medication prescribed and Follow-up Visit Requested Depression Screening Done: Yes 51748 - PHQ-9 Billing: Yes Source: Developed by Drs. Gomez Grajeda, Dahlia Jerome, Juan Carlos Deluna and colleagues, with an educational jitendra from [employer]. Thrive Questionnaire Date Thrive assessed: 11/04/23 I am a: Patient What is your living situation today?: I have a steady place to live Within the past 12 months, did the food you bought not last and you didn't have the money to get more?: I choose not to answer this question Within the past 12 months, did you worry whether your food would run out before you got money to buy more?: I choose not to answer this question Do you have trouble paying for medicines?: No Do you have trouble getting transportation to medical appointments?: No Do you have trouble paying your heating and electricity bill?: No Do you have trouble taking care of your child, family member or friend?: I choose not to answer this question Do you have trouble with day-to-day activities such as bathing, preparing meals, shopping, managing finances, etc.?: I choose not to answer this question Are you currently unemployed and looking for a job?: I choose not to answer this question Are you interested in more education?: I choose not to answer this question Please select the resources that you would like help with: None Currently or been in a relationship where the following occur: I choose not to answer THRIVE Score: 0 AUDIT C Alcohol Use Questionnaire (AUDIT-C) 1. How often do you have a drink containing alcohol?: Never Total Score: 0 Score Reviewed/Action Taken: No GARY-7 AMB Questionnaire GARY-7 Date GARY - 7 assessed: 11/04/23 Feeling nervous, anxious, or on edge: 2 = More than half the days Not being able to stop or control worryin = Not at all Worrying too much about different things: 1 = Several days Trouble relaxin = Not at all Being so restless that it is hard to sit still: 0 = Not at all Becoming easily annoyed or irritable: 2 = More than half the days Feeling afraid as if something awful might happen: 0 = Not at all Total GARY-7 score (0-4 normal; 5-9 mild; 10-14 moderate; 15-21 severe): 5 Source: Developed by Drs. Gomez Grajeda, Dahlia Jerome, Juan Carlos Deluna and colleagues, with an educational jitendra from [employer]. GARY-7 Assessment Billing GARY-7 Assessment Tool: GARY-7 Assessment 14881 Review of Systems Const All systems reviewed & are unremarkable except as noted in HPI and below Card Denies chest pain at rest, Denies chest pain with activity, Denies edema, Denies irregular heart rhythm, Denies claudication, Denies dyspnea, Denies dyspnea on exertion, Denies orthopnea, Denies paroxysmal nocturnal dyspnea and Denies slow heart rate Resp Denies cough, Denies dyspnea and Denies dyspnea on exertion GI Denies abdominal pain, Denies change in bowel habits, Denies excessive flatus, Denies nausea and Denies vomiting Denies urinary incontinence, Denies urinary hesitancy and Denies urinary urgency Musc Denies atrophy, Denies deformity and Denies limited range of motion Skin/Breast Denies bleeding lesions, Denies changing lesions and Denies rash Physical exam (Primary Care) Vital Signs: Last Vital Signs BP 102/68 11/04/23 12:34 BMI result Body Mass Index 27.3 Tobacco/Smoking Status: Tobacco use Status Tobacco use date assessed 04/14/23 11/04/23 12:41 Patient Tobacco Use Status Never used Tobacco 11/04/23 12:41 e-Cigarette/Vaping Use Never Used 11/04/23 12:41 PHQ-9: PHQ-9 Score PHQ-9: Total score 5 11/04/23 12:51 Depression Screening Interpretation: Positive Depression Screening Follow-up: Existing condition, New Medication prescribed and Follow-up Visit Requested Thrive Assessment: Date of Thrive Assessment Date Thrive assessed 11/04/23 11/04/23 12:41 Currently or been in a relationship where the following occur: I choose not to answer HENMT Head: Yes normal to inspection, Yes normocephalic and Yes atraumatic Ears: external ears normal Eyes General: appearance normal, both eyes and all related structures Eyelids: Yes eyelids normal Conjunctivae: conjunctivae normal Neck Neck: Yes normal visual inspection and Yes supple Resp Effort & Inspection: normal respiratory effort Auscultation: clear to auscultation bilaterally Cardio Jugular venous distension: no JVD Rate: regular rate Rhythm: regular rhythm Heart sounds: S1 normal heart sound present and S2 normal heart sound present GI Inspection: Yes normal to inspection Palpation (GI): Soft to palpation and nontender Auscultation: normal bowel sounds Skin General skin exam: no rashes or lesions noted Neuro General: no focal motor deficits Extrem General: Yes full ROM Assessment and Plan Assessment & Plan (1) Physical exam: Code(s): Z00.00 - Encounter for general adult medical examination without abnormal findings Plan: Repeat in a year. (2) Mild recurrent major depression: Code(s): F33.0 - Major depressive disorder, recurrent, mild Plan: Continue bupropion. Orders: Referrals Open Access Screening Colonoscopy Referral Z12.11 - Encounter for screening for malignant neoplasm of colon Medications: New bupropion HCl XL 150 mg PO QAM 90 tabs 0RF 90 days Refilled thiamine HCl (vitamin B1) 100 mg PO DAILY 90 tabs 3RF Coding Level of Care Code Est Pt Prev Care 40-64y(02885) Diagnoses Physical exam Z00.00 Mild recurrent major depression F33.0 Additional Codes GARY-7 Assessment Billing - GARY-7 Assessment Tool: GARY-7 Assessment 83201 ([id number]) Time Spent (min) 30
[2023-11-04 12:34] VITALS: BP 102/68; BMI 27.3
== END 2023-11-04 12:59 | disposition home or self-care (01) ==
PROVIDERS: PCP Internal Medicine; Visit Provider Internal Medicine
DX: Z00.00 Encounter for general adult medical examination without abnormal findings (principal); F33.0 Major depressive disorder, recurrent, mild
CPT/HCPCS: 96127; 99396

== ENCOUNTER 2023-11-25 10:30 | Outpatient (RCR) | payer OTHER, SELFPAY ==
--- NOTE | 2023-11-04 10:59 | MHC.OT.EP ---
[address] [phone] Occupational Therapy Plan of Care Patient Name: Ya Saab Date of Evaluation: 11/04/23 Diagnosis: Right lateral epicondylitis and ulnar wrist tendinitis Pain Location: Right lateral and medial elbow, sharp Worse sharp pain w/ use and in general at nighttime Pain Score: 7 Pain Scale Used: Numeric (0 - 10) Aggravating Factors: Grasping, holding, sleeping Alleviating Factors: Relief w/ guarded position (elbow bent and held in front), Tylenol Has nighttime orthosis, wears occasionally - reports pain in ulnar wrist w/ wear Assessment: 43 yo female w/ history of tennis elbow a few years ago, presents now with pain in right elbow, persistent since May of this year. She also has pain in the base of her hand/palm and over base of ulnar aspect of hand/wrist. She is scheduled for CTR 12/17/23, in the meantime she has been referred to OT for management of right lateral epicondylitis and ulnar tendinitis. On assessment today, she has tenderness over volar and dorsal forearm and epicondyles, as well has volar palm over carpal tunnel and base of hand at pisoform. She has low stoker erector and servicer strength (R 25lb and L 35lb) which is worsened w/ elbow extension (R 5lb). Symptoms are consistent with lateral and medial epicondylitis with CTS and FCU tendinopathy. We will continue hand therapy to address pain and weakness w/ further education on joint protection and activity modification. Frequency and Duration: The patient will be seen 2x/wk for 4 weeks Short Term Goals: Ind w/ HEP Ind w/ STM Good follow through w/ joint protection techniques Filling Operator Goals: QuickDASH score <50 pts Right gross grasp >35lb Progress to strengthening program Treatment Plan: Therapeutic Exercise Therapeutic Activity Home Exercise Program Splinting Patient Education Edema Control ADL Training Ultrasound Iontophoresis Paraffin Fluidotherapy MHP Cold Packs Soft Tissue Mobilization Kinesiotaping Ionto w/ dexamethasone Electronically Signed By: Reema Tsai OTR/L CHT Please Sign and return to therapist. Thank you once again for your referral.
--- NOTE | 2023-12-16 11:46 | MHC.OT.DC ---
[address] [phone] F: [phone] Occupational Therapy Discharge Note Patient Name: Ya Saab Provider: Say Ziegler PA-C Diagnosis: Right lateral epicondylitis and ulnar wrist tendinitis Date of Evaluation: 11/04/23 Date of Discharge: 12/16/23 Treatments to Date: 5 Cancellations to Date: 3 No Shows to Date: 2 Discharge Status: Achieved Goals Improved Function Independent with HEP Patient Elected to Stop Discharge Summary: Ya was referred to OT with right lateral epicondylitis and wrist tendinitis. She has done well w/ brief course of OT, missed last two appointment and has not rescheduled. She has good follow through w/ joint protection/activity modification. Some relief w/ nighttime wrist orthosis, still avoiding use of right hand w/ everyday activities. Reporting decreased frequency and intensity of pain in right elbow. I anticipate she is doing well and Ind w/ home program for self management. Electronically Signed By: ALYSA Peraza/Consuelo CHT Reviewed/agree with student documentation: Therapist: Please Sign and return to therapist, thank you for your referral.
== END 2023-12-16 11:46 | disposition home or self-care (01) ==
LOC: HO.OT 10:30
PROVIDERS: PCP Internal Medicine
DX: M77.8 Other enthesopathies, not elsewhere classified (principal); M77.11 Lateral epicondylitis, right elbow
CPT/HCPCS: 97033; 97035; 97110; 97140; 97165

== ENCOUNTER 2023-11-30 11:26 | Day surgery (SDC) | payer OTHER, SELFPAY ==
[2023-11-30 12:09] VITALS: BMI 25.9
[2023-11-30 12:15] VITALS: BP 110/72; PULSE 88; RESP 16; TEMP 36.7; O2SAT 99
--- NOTE | 2023-11-30 14:39 | MHC.SHP ---
Pre-Procedural Eval Section A - 24 Hr Update-Section A only Date of Service: 11/30/23 The patient is an INPATIENT: No Changes since office visit: No Cold of Flu in the past 2 weeks, No New Medical Problems, No Changes in Medication and No Patient answered all questions The patient has been examined within 24 hours of the surgical procedure. The History & Physical has been completed within 30 days and I have reviewed it.: Yes Section B - Complete if H&P > 30 days Chief Complaint: Carpal tunnel syndrome, right upper limb Allergies: Allergies Allergy/AdvReac Type Severity Reaction Status Date / Time No Known Allergies Allergy Verified 11/04/23 12:44 Plan Diagnosis/Plan: Unchanged I have reviewed the history and physical and performed a pertinent physical examination on my patient. No changes have occurred unless specified. Time Spent With Patient Time: Total time managing care of this patient today ____ minutes.
--- NOTE | 2023-11-30 14:39 | W.PM.OPN ---
Operative Note Operative Note Date of Service: 11/30/23 Narrative: Preop diagnosis: 1. Right Carpal tunnel syndrome Postop diagnosis: same Procedure: 1. Right Carpal tunnel release Surgeon: Quynh Leon MD Cutting Table Operator First: None Anesthesia: local block using 1% lidocaine with epinephrine Findings: Thickened transverse carpal ligament. EBL: Less than 5 mL Specimens: None Complications: None Disposition: Brought to recovery room in stable condition Plan: Follow-up for 10-14 days for wound check and suture removal Indications: The patient is 43 years old, with right carpal tunnel syndrome that has been unresponsive to nonoperative management. The risks and benefits of operative treatment including but not limited to risk of damage to blood vessels, nerves, tendons, infection, persistent pain, persistent symptoms, or possible need for additional surgery were discussed with the patient and the patient wishes to proceed with surgery. Procedure: Once consent was obtained a local block was performed using a combination of 1% lidocaine with epinephrine. The patient was then brought back to the operating suite and placed on the operative table in supine position. The right upper extremity was prepped and draped in a standard surgical fashion. Once assured that we had a good block, a 2.0 cm longitudinal incision was made centered over the carpal tunnel. The incision was made through the skin to the subcutaneous tissues using a #15 blade. Dissection was made down to the level of the transverse carpal ligament with care being taken to protect the palmar cutaneous nerve. Once the transverse carpal ligament was clearly visualized, a longitudinal incision was made in the transverse carpal ligament 1st using a #15 blade, then using tenotomy scissors under direct visualization. Care was taken to look for and protect the motor branch of the median nerve when seen in this area. Once satisfied with our carpal tunnel release the wound was copiously irrigated with normal saline and hemostasis was obtained with a brief period of local pressure. The skin edges were reapproximated with some 5.0 nylon suture material and a sterile dressing was applied. The patient appears to have tolerated the procedure well and with no complications. All digits were well vascularized at the conclusion of the case.
[2023-11-30 15:46] VITALS: BP 116/72; PULSE 87; RESP 15; O2SAT 100
== END 2023-11-30 15:48 | disposition home or self-care (01) ==
PROVIDERS: PCP Internal Medicine; Visit Provider Orthopaedic Surgery
PROC: (CPT 64721; principal; 2023-11-30 15:10)
DX: G56.01 Carpal tunnel syndrome, right upper limb (principal); R20.0 Anesthesia of skin; R20.2 Paresthesia of skin; M77.8 Other enthesopathies, not elsewhere classified; M77.11 Lateral epicondylitis, right elbow; Z98.84 Bariatric surgery status; Z98.890 Other specified postprocedural states
CPT/HCPCS: 64721; J0171; J2003

== ENCOUNTER → 2023-11-30 11:26 | Outpatient (BNV) | payer OTHER, SELFPAY | PROVIDERS: PCP Internal Medicine; Visit Provider Orthopaedic Surgery | DX: G56.01 Carpal tunnel syndrome, right upper limb (principal) | CPT/HCPCS: 64721 ==

== ENCOUNTER 2023-12-08 10:10 | Outpatient (REF) | payer OTHER, SELFPAY ==
[2023-12-09 11:25] LABS: Bacterial Vaginosis PCR NEGATIVE (Negative); Candida Group PCR NOT DETECTED (Not Detect); Candida glab krusei PCR NOT DETECTED (Not Detect); Trichomonas vaginalis PCR NOT DETECTED (Not Detect)
[2023-12-09 11:28] LABS: CT PCR NOT DETECTED (Not Detect.); NG PCR NOT DETECTED (Not Detect.)
[2023-12-10 14:23] LABS: HPV mRNA E6/E7 Not Detected (Not Detected)
== END 2023-12-08 10:11 | disposition home or self-care (01) ==
LOC: HO.LNP 10:10
PROVIDERS: PCP Internal Medicine; Visit Provider Advanced Practice Midwife
DX: Z01.419 Encounter for gynecological examination (general) (routine) without abnormal findings (principal); Z11.51 Encounter for screening for human papillomavirus (HPV); N93.9 Abnormal uterine and vaginal bleeding, unspecified; L29.2 Pruritus vulvae
CPT/HCPCS: 0352U; 87491; 87591; 87624; 88175; 99396

== ENCOUNTER 2023-12-08 10:10 | Outpatient (AMB) | payer OTHER, SELFPAY ==
--- NOTE | 2023-12-08 10:13 | A.OFFVIS_ITS ---
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 Doing well with no concerns. -I-tching on the right labia for years, had biopsy in [place], treated with cream, approx. 2018-records not available but found biopsy records in [address] 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 She tries to eat healthy and stays active with exercise. Regular monthly menses, 3/5 heavier than usual. Labs: 10/01/2023-TSH 0.96, H/ H 11.4-36.0. Currently is sexually active. She denies vaginal itching and irritation. Reports needs refills on her Valtrex uses it several times a year as needed. STI screening offered; she declines. Family history history of breast and ovarian cancer. No family history of colon cancer. Last pap smear 2019, negative. History of abnormal in the past. Mammogram: at [facility]. History of right breast biopsy and lumpectomy at [facility]-no records available. Has US q3 mo, last 12/04/23, has follow up in March. Provider exams at [facility] biannually. [facility] Medical History (Updated 12/08/23 @ 11:11 by Sofiya Melendez CNM) Hand pain Leg pain Right arm pain Scoliosis Left foot pain Hand numbness Skin lesions GERD (gastroesophageal reflux disease) Iron deficiency anemia due to chronic blood loss Class 1 obesity with body mass index (BMI) of 32.0 to 32.9 in adult Tonsillectomy planned Burning reflux Surgical History (Updated 12/08/23 @ 10:48 by Sofiya Melendez CNM) History of lumpectomy of right breast History of bilateral breast reduction surgery History of hernia repair History of tonsillectomy History of section H/O abdominoplasty Hx of breast reduction, elective History of gastric surgery LAP-BAND surgery status Tubal ligation status Family History Father Stroke Parkinsons disease Lewy body dementia Mother Lung cancer Maternal Grandmother Throat cancer Lung cancer Paternal Grandmother Stomach cancer Maternal Grandfather No problems noted. Paternal Grandfather No problems noted. Maternal Aunt Ovarian cancer Paternal Aunt Ovarian cancer Breast cancer Social History (Reviewed 12/08/23 @ 10:19 by Adriana Montano [facility]) Housing: House Alcohol intake: never Patient Tobacco Use Status: Never used Tobacco e-Cigarette/Vaping Use: Never Used Second Hand Smoke Exposure: No service: No Current occupational status: disabled Cognitive needs: No Hearing needs: No Vision needs: Yes (glasses) Female Reproductive History Menstrual Age of Menarche: 6 Duration of menses: 3-5 days Date of last menstrual period: 12/02/23 control method: permanent sterilization Permanent Sterilization: BTL Total pregnancies: 2 Full term: 2 Number of Living Children: 2 Date of last pap smear: 02/09/20 History of abnormal pap smear: Yes History of STI: No Date of Mammogram: 05/25/23 History of abnormal mammogram: Yes (Pt is being seen by [facility]) Review of Systems Const All systems reviewed & are unremarkable except as noted in HPI and below Reports as per HPI Eyes Reports no additional complaints ENT Reports no additional complaints Card Reports no additional complaints Resp Reports no additional complaints GI Reports as per HPI and Reports no additional complaints Reports as per HPI Musc Reports no additional complaints Skin/Breast Reports as per HPI Neuro Reports no additional complaints Psych Reports no additional complaints Endo Reports no additional complaints Vidal/Lymph Reports no additional complaints Aller/Immun Reports no additional complaints Physical Exam Vital Signs: Last Vital Signs BP 110/66 12/08/23 10:17 BMI result Body Mass Index 25.7 Const General: cooperative, healthy appearing, no acute distress, well developed and alert Orientation/consciousness: patient oriented x3 HEENT Head: Yes normal to inspection Eyes General: appearance normal, both eyes and all related structures Neck Neck: Yes normal visual inspection Thyroid: Thyroid normal Chest Other: Bilateral breast reduction scarring Chest palpation & inspection: normal inspection of the chest and other (no puckering, dimpling, peau de orange, retraction, discharge, masses) Breast/axilla inspection: normal inspection of the breasts Breast/axilla palpation: normal palpation of the breasts Resp Effort & Inspection: normal respiratory effort GI Inspection: Yes scar Palpation (GI): Soft to palpation Rectal Exam - Female: deferred General: Yes bladder normal to palpation External Female Exam: normal external appearance and normal appearance of the urethra Speculum Exam - Vagina: normal appearance of the vagina, normal palpation and normal vaginal discharge Speculum Exam - Cervix: normal appearance of the cervix and normal palpation Bimanual exam- vagina & uterus: normal bimanual exam, normal palpation, uterine size normal, bladder normal to palpation, normal palpation and non-tender Bimanual Exam- Adnexa, other: no masses Skin General skin exam: no rashes or lesions noted Rashes: no rashes Neuro General: patient oriented x3 Cognition (Neuro): normal cognition Extrem General: Yes normal to inspection Psych Attitude: cooperative Thought process: Normal thought process present Assessment & Plan Assessment & Plan (1) Abnormal uterine bleeding (AUB): Code(s): N93.9 - Abnormal uterine and vaginal bleeding, unspecified Category: Medical (2) Encounter for well woman exam with routine gynecological exam: Code(s): Z01.419 - Encounter for gynecological examination (general) (routine) without abnormal findings Category: Medical (3) Vulvar itching: Code(s): L29.2 - Pruritus vulvae Plan Discussed: Current recommendations for pap smears per ASCCP guidelines. Breast awareness and periodic breast exams. Rx for Valtrex sent in. Rx for topical corticosteroid, tapered dose then maintenance. Follow up p.r.n. if no improvement. Workup for heavy menstrual choice to include pelvic ultrasound and possible endometrial biopsy, follow up in person for results. Monitor cycles for now and report any unscheduled bleeding less than 24 days apart or heavy prolonged bleeding. Maintain a healthy lifestyle including a well balanced diet and routine exercise. Mammogram yearly. Colonoscopy >45, or at risk sooner. Patient verbalizes understanding and agrees to the plan of care. She was given opportunity to ask questions and all questions were answered to the best of my ability. RTO in one year for annual patient care coordinator examination. This note is constructed using voice recognition software. While every effort has been made to ensure accuracy, bottle washing machine operator errors may have been included. Orders: Orders US pelvic and transvaginal Today N93.9 - Abnormal uterine and vaginal bleeding, unspecified Bacterial Vaginosis Panel Today N93.9 - Abnormal uterine and vaginal bleeding, unspecified CT NG by PCR Today N93.9 - Abnormal uterine and vaginal bleeding, unspecified PAP + HPV E6/E7 rfx 18/45 Today Z01.419 - Encounter for gynecological examination (general) (routine) without abnormal findings Medications: New betamethasone valerate 0.1% apply a thin coat to the area nightly for two weeks, then every other day for two weeks, then twice weekly at bedtime 1 appl topical .twice weekly 90 days 45 grams 1RF valacyclovir (Valtrex) take with onset on of symptoms, take for three days, may repeat dosing per episode prn 500 mg PO BID 90 tabs 0RF Coding Level of Care Code Est Pt Prev Care 40-64y(35886) Diagnoses Abnormal uterine bleeding (AUB) N93.9 Encounter for well woman exam with routine gynecological exam Z01.419 Vulvar itching L29.2
[2023-12-08 10:17] VITALS: BP 110/66; BMI 25.7
== END 2023-12-08 10:56 | disposition home or self-care (01) ==
PROVIDERS: PCP Internal Medicine; Visit Provider Advanced Practice Midwife
DX: Z01.419 Encounter for gynecological examination (general) (routine) without abnormal findings (principal); N93.9 Abnormal uterine and vaginal bleeding, unspecified; L29.2 Pruritus vulvae
CPT/HCPCS: 99396

== ENCOUNTER 2023-12-14 10:31 | Outpatient (REF) | payer OTHER, SELFPAY | END 2023-12-14 10:32 | disposition home or self-care (01) | LOC: HO.US 10:31 | PROVIDERS: PCP Internal Medicine; Visit Provider Advanced Practice Midwife | DX: N93.9 Abnormal uterine and vaginal bleeding, unspecified (principal) | CPT/HCPCS: 76830; 76856 ==

== ENCOUNTER 2023-12-15 12:42 | Outpatient (AMB) | payer OTHER, SELFPAY ==
--- NOTE | 2023-12-15 12:48 | MHC.OFFVIS ---
Vital Signs 12/15/23 12:54 Height 4 ft 11 in Weight 127 lb BMI 25.6 Intake Visit Reasons: PO RT CTR 11/30/23 AR Intake Note: Ya is a 43 year old female who presents to the office today for a PO RT CTR 11/30/23 AR. Sutures out and steri-strips applied. Patient reports her pain has improved since her surgery. Her numbness and tingling has subsided. Allergies No Known Allergies Allergy (Verified 12/15/23 12:54) HPI Comments Details: Patient is a 43-year-old female presents for postoperative evaluation status post right carpal tunnel release, DOS 11/30/[address] Leon. Today, the patient that she is very pleased with how surgery went, and then the numbness and tingling in her right hand has completely resolved. The patient reports that her range of motion has returned to normal postoperatively, and states that she would like to get signed up for a left carpal tunnel release today. All other acute complaints or concerns at this time [facility] Medical History (Updated 12/08/23 @ 11:11 by Sofiya Melendez CNM) Hand pain Leg pain Right arm pain Scoliosis Left foot pain Hand numbness Skin lesions GERD (gastroesophageal reflux disease) Iron deficiency anemia due to chronic blood loss Class 1 obesity with body mass index (BMI) of 32.0 to 32.9 in adult Tonsillectomy planned Burning reflux Surgical History History of lumpectomy of right breast History of bilateral breast reduction surgery History of hernia repair History of tonsillectomy History of section H/O abdominoplasty Hx of breast reduction, elective History of gastric surgery LAP-BAND surgery status Tubal ligation status Family History Father Stroke Parkinsons disease Lewy body dementia Mother Lung cancer Maternal Grandmother Throat cancer Lung cancer Paternal Grandmother Stomach cancer Maternal Grandfather No problems noted. Paternal Grandfather No problems noted. Maternal Aunt Ovarian cancer Paternal Aunt Ovarian cancer Breast cancer Social History Housing: House Alcohol intake: never Patient Tobacco Use Status: Never used Tobacco e-Cigarette/Vaping Use: Never Used Second Hand Smoke Exposure: No service: No Current occupational status: disabled Cognitive needs: No Hearing needs: No Vision needs: Yes (glasses) Female Reproductive History Menstrual Age of Menarche: 6 Physical Exam Vital Signs: BMI result Body Mass Index 25.6 Extrem Other: Patient is alert, oriented, and in no acute distress. Neuro: Normal sensation of the tips of all digits of the right hand at this time normal sensation tips of all digits of the left hand at this time Vascular: Cap refill brisk Pain: Patient reports very minimal tenderness to gentle palpation about the incision site on the volar right wrist Range of motion of the right hand painless ROM: Patient is able to make a closed fist and extend all digits of bilateral hands fully and without difficulty Skin: Well approximated and well healing incision site noted on the volar aspect of the patient's right wrist Sutures removed, Steri-Strips in place No evidence of infection General: No ecchymosis, erythema, or evidence of infection. Psych: Appears grossly normal Affect normal Attitude cooperative Assessment & Plan Assessment & Plan (1) Carpal tunnel syndrome, bilateral: Code(s): G56.03 - Carpal tunnel syndrome, bilateral upper limbs Category: Medical Plan 1. Carpal tunnel syndrome, right, status post carpal tunnel release DOS 11/30/2023 Patient appears to be recovering well postoperatively Patient is educated about the typical recovery course At this time, patient is informed she is recovering very well postoperatively, and will not require any occupational therapy or further follow-up evaluations for her right carpal tunnel release at this time Patient is amenable to this plan Patient is educated that if she begins to experience any acute concerns, she should call our office for reassessment 2. Carpal tunnel syndrome, left Symptoms intermittent, daily, worse at night I educated the patient about the condition. I discussed both operative and nonoperative treatment options. The patient would like to proceed with surgery. The risks and benefits of operative treatment were discussed with the patient and the patient wishes to proceed with surgery. These risks include, but are not limited to, risk of damage to blood vessels, nerves, tendons, infection, recurrence, incomplete relief of preoperative symptoms, persistent pain, possible need for further surgery, and the risks associated with regional blocks and/or anesthesia. Plan is to take the patient to the operating room at some point in the next few weeks for the following procedures: 1. Left carpal tunnel release under local anesthesia All of the preoperative paperwork including the consent was discussed today. All of the patient's questions were answered in the clinic today. The patient understands that they will be in contact with our hand frame surgical elastic knitter to discuss scheduling their procedure. Patient denies diabetes, blood thinners, asthma, heart issues, lung issues, kidney issues, or current smoking. Coding Level of Care Code Est Pt Level 4 (87530) Diagnoses Carpal tunnel syndrome, bilateral G56.03
[2023-12-15 12:54] VITALS: BMI 25.6
== END 2023-12-15 13:34 | disposition home or self-care (01) ==
PROVIDERS: PCP Internal Medicine
DX: G56.03 Carpal tunnel syndrome, bilateral upper limbs (principal)
CPT/HCPCS: 99214

== ENCOUNTER → 2023-12-15 12:42 | Outpatient (BNVA) | payer OTHER, SELFPAY | PROVIDERS: PCP Internal Medicine | DX: G56.02 Carpal tunnel syndrome, left upper limb (principal); Z98.890 Other specified postprocedural states | CPT/HCPCS: 99212 ==

== ENCOUNTER 2024-02-04 10:42 | Day surgery (SDC) | payer OTHER, SELFPAY ==
[2024-02-04 11:18] VITALS: BP 100/67; PULSE 90; RESP 18; TEMP 36.7; O2SAT 99
--- NOTE | 2024-02-04 12:43 | MHC.SHP ---
Pre-Procedural Eval Section A - 24 Hr Update-Section A only Date of Service: 02/04/24 The patient is an INPATIENT: No The patient has been examined within 24 hours of the surgical procedure. The History & Physical has been completed within 30 days and I have reviewed it.: Yes Section B - Complete if H&P > 30 days Chief Complaint: Carpal tunnel syndrome, left upper limb Allergies: Allergies Allergy/AdvReac Type Severity Reaction Status Date / Time No Known Allergies Allergy Verified 12/15/23 12:54 Plan I have reviewed the history and physical and performed a pertinent physical examination on my patient. No changes have occurred unless specified. Time Spent With Patient Time: Total time managing care of this patient today ____ minutes.
--- NOTE | 2024-02-04 12:43 | W.PM.OPN ---
Operative Note Operative Note Date of Service: 02/04/24 Narrative: Preop diagnosis: 1. Left Carpal tunnel syndrome Postop diagnosis: same Procedure: 1. Left Carpal tunnel release Surgeon: Quynh Leon MD Theater Education Teacher: Say PAUL Anesthesia: local block using 1% lidocaine with epinephrine Findings: Thickened transverse carpal ligament. EBL: Less than 5 mL Specimens: None Complications: None Disposition: Brought to recovery room in stable condition Plan: Follow-up for 10-14 days for wound check and suture removal Indications: The patient is 43 years old, with left carpal tunnel syndrome that has been unresponsive to nonoperative management. The risks and benefits of operative treatment including but not limited to risk of damage to blood vessels, nerves, tendons, infection, persistent pain, persistent symptoms, or possible need for additional surgery were discussed with the patient and the patient wishes to proceed with surgery. Procedure: Once consent was obtained a local block was performed using a combination of 1% lidocaine with epinephrine. The patient was then brought back to the operating suite and placed on the operative table in supine position. The left upper extremity was prepped and draped in a standard surgical fashion. Once assured that we had a good block, a 2.0 cm longitudinal incision was made centered over the carpal tunnel. The incision was made through the skin to the subcutaneous tissues using a #15 blade. Dissection was made down to the level of the transverse carpal ligament with care being taken to protect the palmar cutaneous nerve. Once the transverse carpal ligament was clearly visualized, a longitudinal incision was made in the transverse carpal ligament 1st using a #15 blade, then using tenotomy scissors under direct visualization. Care was taken to look for and protect the motor branch of the median nerve when seen in this area. Once satisfied with our carpal tunnel release the wound was copiously irrigated with normal saline and hemostasis was obtained with a brief period of local pressure. The skin edges were reapproximated with some 5.0 nylon suture material and a sterile dressing was applied. The patient appears to have tolerated the procedure well and with no complications. All digits were well vascularized at the conclusion of the case.
[2024-02-04 13:07] VITALS: BMI 22.6
[2024-02-04 13:55] VITALS: BP 112/66; PULSE 66; RESP 16; O2SAT 100
== END 2024-02-04 13:56 | disposition home or self-care (01) ==
PROVIDERS: PCP Internal Medicine; Visit Provider Orthopaedic Surgery
PROC: (CPT 64721; principal; 2024-02-04 12:10)
DX: G56.02 Carpal tunnel syndrome, left upper limb (principal); R20.0 Anesthesia of skin; M79.643 Pain in unspecified hand; D50.0 Iron deficiency anemia secondary to blood loss (chronic); K21.9 Gastro-esophageal reflux disease without esophagitis; E66.811 Obesity, class 1; Z68.25 Body mass index [BMI] 25.0-25.9, adult; Z98.84 Bariatric surgery status; Z79.890 Hormone replacement therapy
CPT/HCPCS: 64721; J0171; J2003

== ENCOUNTER → 2024-02-04 10:42 | Outpatient (BNV) | payer OTHER, SELFPAY | PROVIDERS: PCP Internal Medicine; Visit Provider Orthopaedic Surgery | DX: G56.02 Carpal tunnel syndrome, left upper limb (principal) | CPT/HCPCS: 64721 ==

== ENCOUNTER 2024-02-15 09:14 | Outpatient (AMB) | payer OTHER, SELFPAY ==
--- NOTE | 2024-02-15 09:17 | MHC.OFFVIS ---
Vital Signs 02/15/24 09:23 Height 4 ft 11 in Weight 112 lb BMI 22.6 Handedness Right Intake Visit Reasons: PO-Lt CTR 02/04/24 Intake Note: Ya is a 43 year old right hand dominant female who presents today for a post operative visit s/p left carpal tunnel release DOS: 02/14/24 w/ Dr Leon. Patient reports some nights she has still been experiencing numbness. Denies pain. Denies drainage from incision. Sutures removed and steri strips applied. Allergies No Known Allergies Allergy (Verified 02/15/24 09:23) HPI Comments Details: Patient is a 43-year-old presents for postoperative evaluation status post left carpal tunnel release, DOS 02/04/24. The patient reports that she is feeling well, although she is still experiencing some intermittent numbness and tingling in the left hand, particularly at night. Patient denies any pain, redness, swelling, or discharge from the incision site. Of note, the patient does report that she does still feel she is in hands, and has decreased capacity to lift things. No other acute complaints or concerns at this time. [facility] Medical History (Updated 02/15/24 @ 09:33 by HUMBERTO Appiah) Hand pain Leg pain Right arm pain Scoliosis Left foot pain Hand numbness Skin lesions GERD (gastroesophageal reflux disease) Iron deficiency anemia due to chronic blood loss Class 1 obesity with body mass index (BMI) of 32.0 to 32.9 in adult Tonsillectomy planned Burning reflux Surgical History History of lumpectomy of right breast History of bilateral breast reduction surgery History of hernia repair History of tonsillectomy History of section H/O abdominoplasty Hx of breast reduction, elective History of gastric surgery LAP-BAND surgery status Tubal ligation status Family History Father Stroke Parkinsons disease Lewy body dementia Mother Lung cancer Maternal Grandmother Throat cancer Lung cancer Paternal Grandmother Stomach cancer Maternal Grandfather No problems noted. Paternal Grandfather No problems noted. Maternal Aunt Ovarian cancer Paternal Aunt Ovarian cancer Breast cancer Social History Housing: House Are you a primary chiropractic care to a significant other at home: No Do you presently have visiting nurse or other home services: No Alcohol intake: never Patient Tobacco Use Status: Never used Tobacco e-Cigarette/Vaping Use: Never Used Second Hand Smoke Exposure: No service: No Current occupational status: disabled Cognitive needs: No Hearing needs: No Vision needs: Yes (glasses) Female Reproductive History Menstrual Age of Menarche: 6 Review of Systems Const All systems reviewed & are unremarkable except as noted in HPI and below Physical Exam Vital Signs: BMI result Body Mass Index 22.6 Extrem Other: Patient is alert, oriented, and in no acute distress. Neuro: Normal sensation of the tips of all digits of the right hand at this time normal sensation tips of all digits of the left hand at this time Vascular: Cap refill brisk Pain: Patient reports very minimal tenderness to gentle palpation about the incision site on the volar right wrist Range of motion of the right hand painless ROM: Patient is able to make a closed fist and extend all digits of bilateral hands fully and without difficulty Skin: Well approximated and well healing incision site noted on the volar aspect of the patient's left wrist Well-healed incision site noted on the volar right wrist Sutures removed, Steri-Strips in place No evidence of infection General: No ecchymosis, erythema, or evidence of infection. Psych: Appears grossly normal Affect normal Attitude cooperative Assessment & Plan Assessment & Plan (1) Carpal tunnel syndrome, bilateral: Code(s): G56.03 - Carpal tunnel syndrome, bilateral upper limbs Category: Medical (2) Weakness of both hands: Code(s): R29.898 - Other symptoms and signs involving the musculoskeletal system Category: Medical Plan 1. Left carpal tunnel syndrome status post carpal tunnel release DOS 02/04/2024 2. Right carpal tunnel syndrome status post carpal tunnel release DOS 11/30/2023 3. Bilateral hand weakness after carpal tunnel releases Patient appears to be recovering very well from her left carpal tunnel release, and has recovered well from her right carpal tunnel release Patient is educated about the typical recovery course However, due to the patient's proceed. Since, she is referred to occupational therapy for motion and strengthening of the bilateral hands in the setting of perceived weakness Patient expresses understanding of this and is amenable to this plan Patient will follow-up as needed with any acute concerns Orders: Orders OT Evaluation and Treatment Today R29.898 - Other symptoms and signs involving the musculoskeletal system Coding Level of Care Code Global (49449) Diagnoses Carpal tunnel syndrome, bilateral G56.03 Weakness of both hands R29.894
[2024-02-15 09:23] VITALS: BMI 22.6
== END 2024-02-15 09:34 | disposition home or self-care (01) ==
PROVIDERS: PCP Internal Medicine
DX: G56.03 Carpal tunnel syndrome, bilateral upper limbs (principal); R29.898 Other symptoms and signs involving the musculoskeletal system
CPT/HCPCS: 99024

== ENCOUNTER → 2024-02-15 09:14 | Outpatient (BNVA) | payer OTHER, SELFPAY | PROVIDERS: PCP Internal Medicine | DX: Z47.89 Encounter for other orthopedic aftercare (principal); R29.898 Other symptoms and signs involving the musculoskeletal system; Z98.890 Other specified postprocedural states | CPT/HCPCS: 99212 ==

== ENCOUNTER 2024-03-09 11:29 | Outpatient (REF) | payer OTHER, SELFPAY | END 2024-03-09 11:30 | disposition home or self-care (01) | LOC: HO.LNP 11:29 | PROVIDERS: PCP Internal Medicine; Visit Provider Advanced Practice Midwife | DX: N93.9 Abnormal uterine and vaginal bleeding, unspecified (principal); Z01.812 Encounter for preprocedural laboratory examination | CPT/HCPCS: 58100; 81003; 81025; 88305 ==

== ENCOUNTER 2024-03-09 11:29 | Outpatient (AMB) | payer OTHER, SELFPAY ==
--- NOTE | 2024-03-09 11:36 | A.OFFVIS_ITS ---
Intake Visit Reasons: Ultra sound follow up / emb ? Clinical Statistics Manager: Clinical Statistics Manager Present (Danyell) Accompanied by: Self / Same As Patient Allergies No Known Allergies Allergy (Verified 03/09/24 11:38) HPI Comments Details: Patient is here today for a follow up ultrasound results, she has a history of heavy menstrual cycles increasing over the last few months. History of tubal ligation UPT is negative today. Additionally she reports she has a little discomfort in the pelvic area a few days before the onset of her cycle and when her cycle is ending. [facility] Medical History (Updated 03/09/24 @ 12:34 by Sofiya Melendez CNM) Fibroid Hand pain Leg pain Right arm pain Scoliosis Left foot pain Hand numbness Skin lesions GERD (gastroesophageal reflux disease) Iron deficiency anemia due to chronic blood loss Class 1 obesity with body mass index (BMI) of 32.0 to 32.9 in adult Tonsillectomy planned Burning reflux Surgical History (Updated 03/09/24 @ 12:30 by Eboni Coughlin Geovanna) History of lumpectomy of right breast History of bilateral breast reduction surgery History of hernia repair History of tonsillectomy History of section H/O abdominoplasty Hx of breast reduction, elective History of gastric surgery LAP-BAND surgery status Tubal ligation status Family History Father Stroke Parkinsons disease Lewy body dementia Mother Lung cancer Maternal Grandmother Throat cancer Lung cancer Paternal Grandmother Stomach cancer Maternal Grandfather No problems noted. Paternal Grandfather No problems noted. Maternal Aunt Ovarian cancer Paternal Aunt Ovarian cancer Breast cancer Social History Housing: House Are you a primary district manager primary care sales to a significant other at home: No Do you presently have visiting nurse or other home services: No Alcohol intake: never Patient Tobacco Use Status: Never used Tobacco e-Cigarette/Vaping Use: Never Used Second Hand Smoke Exposure: No service: No Current occupational status: disabled Cognitive needs: No Hearing needs: No Vision needs: Yes (glasses) Female Reproductive History Menstrual Age of Menarche: 6 Duration of menses: 6-7 days Date of last menstrual period: 02/20/24 Review of Systems Const All systems reviewed & are unremarkable except as noted in HPI and below Physical Exam Const General: cooperative, healthy appearing and no acute distress Orientation/consciousness: patient oriented x3 GI Inspection: Yes normal to inspection Palpation (GI): Soft to palpation and Other GI palpation findings present (Nontender) Rectal Exam - Female: visual inspection normal General: Yes bladder normal to palpation External Female Exam: normal appearance of the urethra Speculum Exam - Vagina: normal appearance of the vagina, normal palpation and normal vaginal discharge Speculum Exam - Cervix: normal appearance of the cervix and normal palpation Bimanual exam- vagina & uterus: normal bimanual exam, normal palpation, uterine size normal, bladder normal to palpation, normal palpation, uterine shape normal and non-tender Bimanual Exam- Adnexa, other: normal adnexae Neuro General: patient oriented x3 Office Procedures Endometrial Biopsy Details: The patient is here today for an endometrial biopsy due to AUB to rule out any pathology including atypical, hyperplasia or cancer cells of the uterus. She was counseled regarding anticipatory guidance for the procedure including the risks for pain, infection, bleeding, perforation, potential injury to the tissues may include the cervix, uterus, tubes, bladder and bowels. These injuries may include further treatment and evaluation including surgery, blood transfusions, antibiotics, hospitalizations and anesthesia. Permanent injury and scarring can occur. She was consented for the procedure, and the consent forms were signed. She is agreeable to have the procedure today. All questions were answered. Endometrial Biopsy Procedure: The patient was placed in the dorsal lithotomy position and a sterile speculum inserted. Using aseptic technique for the procedure. The cervix was cleansed with Betadine x 3 swabs. A single toothed tenaculum was placed on the cervix for stabilization and the uterus was sounded to 8 cm with a 4mm pipelle, and tissue sample obtained. Minimal bleeding was observed. The tissue sample was placed in formalin in a patient labeled container by staff assisting and sent to the pathology department for processing and interpretation. The patient tolerate the procedure well and was in good condition when leaving the department. Endometrial Biopsy Post Procedure Care: Nothing in the vagina including: tampons, douching or intimacy until all the bleeding has subsided. There may be some post procedure bleeding for several days, this bleeding is usually light and may turn to a light brown or pink color. Mild cramps may occurs. Nothing in the vaginal including: tampons, douching, or intimacy until all the bleeding has subsided. You may take an over the counter mild analgesic such as Tylenol or Advil (if no allergies) per the manufactures recommendation on dosing, frequency, and follow the directions completely. Call the office if any: fever (over 100.4), flu like symptoms, abdominal pain (worse than cramping), foul smelling, infected appearing vaginal discharge, or heavy bleeding. If indicated: Use condoms to prevent and STI's, and only after the bl eeding has stopped completely. Return to the office in 2 weeks for results and plan of care. This note is constructed using voice recognition software. While every effort has been made to ensure accuracy, data operations leader errors may have been included. 14524-Vvjliqjqhej Biopsy Results AMB Test Urine AMB Test Urine Negative Last Edit by EDEL Nathan on 03/09/24 12:26 AMB Urinalysis, Automated UA Leukoctes 0 Jose Manuel/uL Last Edit by EDEL Nathan on 03/09/24 12:40 UA Nitrite Negative Last Edit by EDEL Nathan on 03/09/24 12:40 UA Urobilinogen 0 mg/dL Last Edit by Eboni Coughlin Geovanna on 03/09/24 12:4 0 UA Protein 1 mg/dL Last Edit by EDEL Nathan on 03/09/24 12:40 UA pH 6.0 Last Edit by EDEL Nathan on 03/09/24 12:40 UA Blood 0 [place]/uL Last Edit by EDEL Nathan on 03/09/24 12:40 UA Specific [place] 1.015 Last Edit by Eboni Coughlin Geovanna on 03/09/24 12:40 UA Ketone Negative Last Edit by EDEL Nathan on 03/09/24 12:40 UA Bilirubin 0 mg/dL Last Edit by Eboni Coughlin Geovanna on 03/09/24 12:40 UA Glucose 0 mg/dL Last Edit by EDEL Nathan on 03/09/24 12:40 Results Reviewed Results Reviewed: Laboratory Last Values Tst Clinic Negative 03/09/24 12:[address] [address] Ultrasound Report Signed Patient: Ya Velazquez MR#: [id number] : 1980 Acct:[id number] Age/Sex: 43 / F ADM Date: 12/14/23 Loc: HO.US Attending Dr: Sofiya Melednez CNM Ordering Physician: Sofiya Melendez CNM Date of Service: 12/14/23 Procedure(s): US pelvic and transvaginal Accession Number(s): [id number] cc: Sofiya Melendez CNM; Catrina Montanez MD~ EXAMINATION: US PELVIS CLINICAL INFORMATION: Abnormal uterine and vaginal bleeding. COMPARISON: CT abdomen and pelvis 10/29/2018. TECHNIQUE: Ultrasound of the pelvis is performed using both transabdominal and transvaginal transducers along with Doppler. Transvaginal imaging is performed due to inadequate visualization transabdominally. FINDINGS: Uterus: The uterus is anteverted and measures 9.0 x 4.9 x 5.5 cm. The double wall endometrial thickness is 9 mm. Small amount of fluid is present in the endometrial canal. The uterus is smooth in contour and has normal myometrial echogenicity. There is a 1.5 cm subserosal uterine fibroid present. Adnexa: Both ovaries are visualized. There is normal color flow to the adnexa. There is no ovarian torsion. There is no pelvic ascites or fluid collection. Right ovary measures 2.9 x 1.6 x 2.2 cm for a volume of 5.2 mL. Left ovary measures 2.3 x 1.9 x 2.3 cm for a volume of 8.0 mL. US/US pelvic and transvaginal IMPRESSION: 1. Small uterine fibroid. 2. Small amount of fluid in the endometrial canal consistent with the history of bleeding. Electronically signed by: Robe Hernandez MD 02/11/2024 11:46 AM [facility] [place] Dict[place] By: Robe Hernandez MD Signed By: <Electronically signed by Robe Hernandez MD in OV> 02/11/24 1146 DD/ 1100 TD/TT: 12/14/23 1123 Education Trainer: SS Assessment & Plan Assessment & Plan (1) Abnormal uterine bleeding (AUB): Code(s): N93.9 - Abnormal uterine and vaginal bleeding, unspecified Category: Medical (2) Fibroid: Code(s): D21.9 - Benign neoplasm of connective and other soft tissue, unspecified Category: Medical (3) Encounter to discuss test results: Code(s): Z71.2 - Person consulting for explanation of examination or test findings Plan Discussed: Counseled re: Leiomyoma: common pelvic neoplasm. Differential diagnosis-may include but not limited to- leiomyosarcoma which is a rare uterine sarcoma 3- 7/100,000, difficult to distinguish from fibroids on ultrasound from uterine sarcoma's. Unlikely any single test will have a highly positive predictive value. Hysterectomy is not recommended for sole purpose of excluding malignant neoplasm. Consult for surgical exploration, medical treatment, other treatments, verses expectant management, pros and cons, risks and benefits. Expectant management follow up in 6 months, then yearly for stability. Patient prefers to proceed with expectant management. Report any PMB/AUB, pelvic pressure, bloating, or pain. Referral to MD if indicated for level of care if indicated. Counseled regarding treatment options for fibroids to include surgical, radiological ablation, medical-Mirena IUD, OCPs, other. See EMB notes. The patient expressed understanding and agreement with the plan of care. All of her questions and concerns were addressed to the best of my ability. This note is constructed using voice recognition software. While every effort has been made to ensure accuracy, data operations leader errors may have been included. Orders: Orders AMB HCG Urine Test Today N93.9 - Abnormal uterine and vaginal bleeding, unspecified, Z32.02 - Encounter for test, result negative AMB Urinalysis Automated Today R10.2 - Pelvic and perineal pain US pelvic and transvaginal 06/06/24 D21.9 - Benign neoplasm of connective and other soft tissue, unspecified Surgical Today N93.9 - Abnormal uterine and vaginal bleeding, unspecified Coding Level of Care Code Procedure Only Diagnoses Abnormal uterine bleeding (AUB) N93.9 Fibroid D21.9 Encounter to discuss test results Z71.2 CPT Codes Endometrial Biopsy - CPT: 01907-Hcxqdfnylob Biopsy ([id number]) Comment Additional coding counseling fibroid
== END 2024-03-09 12:43 | disposition home or self-care (01) ==
LOC: HO.HWS 11:29
PROVIDERS: PCP Internal Medicine; Visit Provider Advanced Practice Midwife
DX: N93.9 Abnormal uterine and vaginal bleeding, unspecified (principal); D25.9 Leiomyoma of uterus, unspecified; Z32.02 Encounter for pregnancy test, result negative; R10.2 Pelvic and perineal pain
CPT/HCPCS: 58100

== ENCOUNTER → 2024-03-30 12:28 | Outpatient (BNVA) | payer OTHER, SELFPAY | PROVIDERS: PCP Internal Medicine; Visit Provider Advanced Practice Midwife | DX: Z71.2 Person consulting for explanation of examination or test findings (principal); N93.9 Abnormal uterine and vaginal bleeding, unspecified; N94.12 Deep dyspareunia | CPT/HCPCS: 99212 ==

== ENCOUNTER 2024-04-12 11:36 | Outpatient (AMB) | payer OTHER, SELFPAY ==
--- NOTE | 2024-04-12 12:05 | MHC.OFFVIS ---
Vital Signs 04/12/24 12:12 Height 4 ft 11 in Weight 112 lb BMI 22.6 BP 110/62 Intake Visit Reasons: Mirena insertion Academic Affairs Director Required: No Information Interpreted: non-clinical & clinical Lumber Grader: Lumber Grader Present (Diann HOLLINGSWORTH) Accompanied by: Self / Same As Patient Allergies No Known Allergies Allergy (Verified 04/12/24 12:13) Is last menstrual period known: Yes Last menstrual period: 04/08/24 HPI Comments Details: Patient is here today for a follow on an endometrial biopsy results in for an insertion of a Mirena IUD. History of AUB. History of a tubal ligation. [facility] Medical History Fibroid Hand pain Leg pain Right arm pain Scoliosis Left foot pain Hand numbness Skin lesions GERD (gastroesophageal reflux disease) Iron deficiency anemia due to chronic blood loss Class 1 obesity with body mass index (BMI) of 32.0 to 32.9 in adult Tonsillectomy planned Burning reflux Surgical History History of lumpectomy of right breast History of bilateral breast reduction surgery History of hernia repair History of tonsillectomy History of section H/O abdominoplasty Hx of breast reduction, elective History of gastric surgery LAP-BAND surgery status Tubal ligation status Family History Father Stroke Parkinsons disease Lewy body dementia Mother Lung cancer Maternal Grandmother Throat cancer Lung cancer Paternal Grandmother Stomach cancer Maternal Grandfather No problems noted. Paternal Grandfather No problems noted. Maternal Aunt Ovarian cancer Paternal Aunt Ovarian cancer Breast cancer Social History Housing: House Are you a primary after school caregiver to a significant other at home: No Do you presently have visiting nurse or other home services: No Alcohol intake: never Patient Tobacco Use Status: Never used Tobacco e-Cigarette/Vaping Use: Never Used Second Hand Smoke Exposure: No service: No Current occupational status: disabled Cognitive needs: No Hearing needs: No Vision needs: Yes (glasses) Female Reproductive History Menstrual Age of Menarche: 6 Date of last menstrual period: 04/08/24 Review of Systems Const All systems reviewed & are unremarkable except as noted in HPI and below Physical Exam Vital Signs: Last Vital Signs BP 110/62 04/12/24 12:12 BMI result Body Mass Index 22.6 Const General: cooperative, healthy appearing and no acute distress Orientation/consciousness: patient oriented x3 GI Inspection: Yes normal to inspection Palpation (GI): Soft to palpation and Other GI palpation findings present (Nontender) Rectal Exam - Female: visual inspection normal General: Yes bladder normal to palpation External Female Exam: normal appearance of the urethra Speculum Exam - Vagina: normal appearance of the vagina, normal palpation and normal vaginal discharge Speculum Exam - Cervix: normal appearance of the cervix and normal palpation Bimanual exam- vagina & uterus: normal bimanual exam, normal palpation, uterine size normal, bladder normal to palpation, normal palpation, uterine shape normal and non-tender Bimanual Exam- Adnexa, other: normal adnexae Neuro General: patient oriented x3 Office Procedures IUD Insert/Removal Details Details: The patient is here today for a Mirena IUD insertion, for AUB. She was counseled on the side effects including: menstrual cycle changes, pain, infection, bleeding, or expulsion. Risks of injury to the vagina, cervix, uterus, tubes, ovaries, bowel, bladder, and any adjacent tissue, resulting in nerve damage, scarring, and pain. Risks complications for the procedure that may require other test including ultrasounds, Xray, CT or MRI scan, surgery, anesthesia, blood transfusion. A urine test was completed and was negative. She was consented for the IUD insertion and has signed the consent form. All questions were answered. IUD Insertion: The patient was placed in the dorsal lithotomy position and a sterile speculum was inserted. The procedure was completed under aseptic technique. The cervix was cleansed with a Betadine solution x 3 swabs. A single toothed tenaculum was applied to the cervix for stabilization, and the uterus was sounded to 8cm. The device was inserted and released with a gentle motion. Bleeding from the tenaculum sites and the procedure were minimal. The strings were trimmed to 3cm. All of the equipment was removed and the bimanual was normal, no tip was palpable at the cervical os. The patient tolerated the procedure well and left the office in good condition. Post IUD Insertion Care: There may be some post insertion bleeding for several days that is usually light and can turn to a light brown or pink in color. Mild cramping may occur. Nothing in the vagina including: tampons, douching or intimacy for several days. You may take an over the counter mild analgesia like Tylenol or Advil (if no allergies), per the manufacturers recommendations on dosing and frequency. Follow the directions completely. Call the office if any: fever (over 100.4), flu like symptoms, abdominal pain, worsening cramping not resolved with over the counter medications, foul smelling vaginal odor, signs of infected appearing discharge, or heavy bleeding. Use a condom for a back up method if indicated for 7 days. Always use a condom for STI prevention; IUD's are not protective against STD's. Return to the office in 4-6 weeks for IUD recheck. This note is constructed using voice recognition software. While every effort has been made to ensure accuracy, configuration analyst errors may have been included. 69667-NEG Insertion Procedure code (CPT) selection complete IUD Insert/Removal Details Details: second procedure note-duplicate, unable to remove 02676-XAM Insertion Procedure code (CPT) selection complete Office Meds Mirena 21 mcg/24 hr (up to 8 years) 52 mg intrauterine device Performing Provider: Sofiya Melendez CNM Performing Location: [facility] Administered by: Diann Baker CMA on 04/12/24 12:29 Dose Route Admin Location Dispensed Lot Number Expiration Date [facility] Press Operator Printing 1 device intrauterine 1 device [id number] 06/20/26 [id number] [employer] Results AMB Test Urine AMB Test Urine Negative Last Edit by Diann Baker CMA on 04/12/24 12:14 Results Reviewed Results Reviewed: Laboratory Last Values Tst Clinic Negative 04/12/24 12:14 Name: Ya Velazquez Age/Sex: 43/F Attending: Sofiya Melendez CNM : 1980 Submitted by: Sofiya Melendez CNM Copies to: Catrina Montanez MD MR #: [id number] Status: DEP REF Collected: 03/09/24 Location: [facility] Received: 03/10/24 Diagnosis Endometrium, biopsy: Secretory endometrium; no atypia or hyperplasia identified. Clinical History AUB Microscopic Description Microscopic sections reviewed. Material Received Endometrial biopsy Gross Description Received in formalin labeled ?EMB? are multiple irregular and tubular cast fragments of focally congested and hemorrhagic lion and maroon-brown tissue and clotted blood aggregating 1.2 x 1.0 x 0.4 cm, submitted in toto in a cassette labeled A. CEDS Copies To Sofiya Melendez CNM [facility] Women's Services [address] [place] [address] Catrina Montanez MD [facility],[place] [address] [place] [address] NOTE: Unless otherwise stated, all tissue is formalin-fixed and paraffin-embedded. Some or all of the immunohistochemical tests reported herein may have been developed and their performance characteristics determined by [facility]. They have not been cleared or approved by the U.S. Food and Drug Administration (FDA). However, the FDA has determined that such clearance or approval is not necessary. This laboratory is certified under the Clinical Laboratory Improvement Amendments of 1988 (CLIA) as qualified to perform high complexity clinical laboratory testing. Patient: Ya Velazquez Age/Sex: 43/F MR#: [id number] Page 1 of 2 Assessment & Plan Assessment & Plan (1) Encounter for IUD insertion: Code(s): Z30.430 - Encounter for insertion of intrauterine contraceptive device Plan: EMB results reviewed, no atypia or hyperplasia. (2) Abnormal uterine bleeding (AUB): Code(s): N93.9 - Abnormal uterine and vaginal bleeding, unspecified Category: Medical Plan: Endometrial biopsy results negative see comments. Plan See procedure notes. Duplicate procedure template was inserted in error, unable to remove. Orders: Orders AMB HCG Urine Test 04/12/24 Z32.02 - Encounter for test, result negative CT NG by PCR 04/12/24 Z30.430 - Encounter for insertion of intrauterine contraceptive device AMB IUD Insertion/Removal - Practice Supplied 04/12/24 Z30.430 - Encounter for insertion of intrauterine contraceptive device Coding Level of Care Code Procedure Only Diagnoses Encounter for IUD insertion Z30.430 Abnormal uterine bleeding (AUB) N93.9 CPT Codes Details - CPT: 17620-MZF Insertion ([id number]) Details - CPT: 95626-QAO Insertion ([id number]) Comment Duplicate procedure template unable to remove it
[2024-04-12 12:12] VITALS: BP 110/62; BMI 22.6
--- OUTSIDE RECORDS SUMMARY | 2024-04-12 12:47 | XMS_ITS | Clinical Summary ---
Author Organization [facility] [employer] [facility] ity Address [address] [place] [address] Care Team Providers [employer] Counselor Name Role Phone Catrina Cruz MD Primary Care Provider [phone] Surgical History Surgery Date Site/Laterality Comments ESOPHAGOGASTRODUODENOSCOPY 07/28/07 PROCEDURE: DC EGD TRANSORAL BIOPSY SINGLE/MULTIPLE; COMMENT: r/o Christensen's esophagus-bx:No BE, mild chronic inflammation, Nl stomach-bx:mild reactive gastropathy, Nl duodenum-bx:mild increase in intraepithelial lymphocytes (not suggestive of celiac disease) COLONOSCOPY W/ BIOPSIES 07/28/07 PROCEDURE: DC COLONOSCOPY STOMA W/BIOPSY SINGLE/MULTIPLE; COMMENT: Up to cecum, regular preparation, normal colon exam. Random colon bx:prominent lymphoid aggregates, no specific pathologic change. HERNIA REPAIR PROCEDURE: DC REPAIR FIRST ABDOMINAL WALL HERNIA BREAST REDUCTION PROCEDURE: DC BREAST REDUCTION LAPAROSCOPIC GASTRIC BANDING PROCEDURE: LAP ADJUSTABLE GASTRIC BAND TUBAL LIGATION PROCEDURE: HISTORICAL TUBAL LIGATION Social History Tobacco Use Types Packs/Day Years Used Date Smoking Tobacco: Never Smokeless Tobacco: Never Alcohol Use Standard Drinks/Week Comments Yes 0 (1 standard drink = 0.6 oz pur e alcohol) Comments Unknown Sex and Gender Information Value Date Recorded Sex Assigned at Not on file Legal Sex Female 11:14 AM EST Gender Identity Not on file Sexual Orientation Not on file Obstetrics History Plan of Treatment Health Maintenance Due Date Last Done Comments Breast Cancer Screening 1980 DTaP,Tdap,and Td Vaccines (1 - Tdap) 1997 Hepatitis B Vaccines (1 of 3 - 19+ 3-dose series) 1997 Cervical Cancer Screening: P ap Smear 10/19/1999 COVID-19 Vaccine (2023-2 5 season) 2023 Influenza Vaccine (#1) 2023 HIB Vaccines Aged Out No longer eligi ble based on patient's age to complete this topic HPV Vaccines Aged Out No longer eligi ble based on patient's age to complete this topic Hepatitis A Vaccines Aged Out No long er eligible based on patient's age to complete this topic IPV Vaccines Aged Out No longer eligi ble based on patient's age to complete this topic MMR Vaccines Aged Out No longer eligi ble based on patient's age to complete this topic Meningococcal ACWY Vaccine Aged Out N o longer eligible based on patient's age to complete this topic Meningococcal B Vacine Aged Out No lo nger eligible based on patient's age to complete this topic Pneumococcal Vaccine: Pediat rics (0 to 5 Years) and At-Risk Patients (6 to 64 Years) Aged Out No longer eligible b ased on patient's age to complete this topic RSV Immunization Patients Un olga lidia 20 months Aged Out No longer eligible b ased on patient's age to complete this topic Varicella Vaccines Aged Out No longer eligible based on patient's age to complete this topic Care Teams [employer] Counselor Relationship Specialty Start Date End Date Catrina Cruz MD [address] [place] [address] , [address] [facility] D[facility]A: [facility] BENJI Hobson PCP - General Internal Medicine 11/27/20
== END 2024-04-12 12:36 | disposition home or self-care (01) ==
LOC: HO.HWS 11:36
PROVIDERS: PCP Internal Medicine; Visit Provider Advanced Practice Midwife
DX: Z30.430 Encounter for insertion of intrauterine contraceptive device (principal); Z32.02 Encounter for pregnancy test, result negative
CPT/HCPCS: 58300

== ENCOUNTER 2024-04-12 11:36 | Outpatient (REF) | payer OTHER, SELFPAY ==
--- OUTSIDE RECORDS SUMMARY | 2024-04-12 13:19 | XMS_ITS | Clinical Summary ---
Author Organization [facility] [employer] [facility] ity Address [address] [place] [address] Care Team Providers Care Railroad Car Checker Name Role Phone Catrina Cruz MD Primary Care Provider [phone] Surgical History Surgery Date Site/Laterality Comments ESOPHAGOGASTRODUODENOSCOPY 07/28/07 PROCEDURE: [place] EGD TRANSORAL BIOPSY SINGLE/MULTIPLE; COMMENT: r/o Christensen's esophagus-bx:No BE, mild chronic inflammation, Nl stomach-bx:mild reactive gastropathy, Nl duodenum-bx:mild increase in intraepithelial lymphocytes (not suggestive of celiac disease) COLONOSCOPY W/ BIOPSIES 07/28/07 PROCEDURE: NV COLONOSCOPY STOMA W/BIOPSY SINGLE/MULTIPLE; COMMENT: Up to cecum, regular preparation, normal colon exam. Random colon bx:prominent lymphoid aggregates, no specific pathologic change. HERNIA REPAIR PROCEDURE: NV REPAIR FIRST ABDOMINAL WALL HERNIA BREAST REDUCTION PROCEDURE: NV BREAST REDUCTION LAPAROSCOPIC GASTRIC BANDING PROCEDURE: LAP [...] age to complete this topic Care Teams Railroad Car Checker Relationship Specialty Start Date End Date Catrina Cruz MD [address] [place] [address] , [address] [facility] D[facility]B/A: [facility] BENJI Hobson PCP - General Internal Medicine 11/27/20
[2024-04-12 16:58] LABS: CT PCR NOT DETECTED (Not Detect.); NG PCR NOT DETECTED (Not Detect.)
== END 2024-04-12 11:37 | disposition home or self-care (01) ==
LOC: HO.LNP 11:36
PROVIDERS: PCP Internal Medicine; Visit Provider Advanced Practice Midwife
DX: Z30.430 Encounter for insertion of intrauterine contraceptive device (principal); N93.9 Abnormal uterine and vaginal bleeding, unspecified
CPT/HCPCS: 58300; 81025; 87491; 87591; J7298

== ENCOUNTER 2024-05-10 07:42 | Outpatient (AMB) | payer OTHER, SELFPAY ==
--- OUTSIDE RECORDS SUMMARY | 2024-05-10 07:46 | XMS_ITS | Clinical Summary ---
Author Organization [facility] [employer] [facility] ity Address [address] [place] [address] Care Team Providers Care Electric Truck Crane Operator Name Role Phone Catrina Cruz MD Primary Care Provider [phone] Surgical History Surgery Date Site/Laterality Comments ESOPHAGOGASTRODUODENOSCOPY 07/28/07 PROCEDURE: [place] EGD TRANSORAL BIOPSY SINGLE/MULTIPLE; COMMENT: r/o Christensen's esophagus-bx:No BE, mild chronic inflammation, Nl stomach-bx:mild reactive gastropathy, Nl duodenum-bx:mild increase in intraepithelial lymphocytes (not suggestive of celiac disease) COLONOSCOPY W/ BIOPSIES 07/28/07 PROCEDURE: MO COLONOSCOPY STOMA W/BIOPSY SINGLE/MULTIPLE; COMMENT: Up to cecum, regular preparation, normal colon exam. Random colon bx:prominent lymphoid aggregates, no specific pathologic change. HERNIA REPAIR PROCEDURE: MO REPAIR FIRST ABDOMINAL WALL HERNIA BREAST REDUCTION PROCEDURE: MO BREAST REDUCTION LAPAROSCOPIC GASTRIC BANDING PROCEDURE: LAP [...] age to complete this topic Care Teams Electric Truck Crane Operator Relationship Specialty Start Date End Date Catrina Cruz MD [address] [place] [address] , [address] [facility] D/B/A: [facility] BENJI Hobson PCP - General Internal Medicine 11/27/20
--- NOTE | 2024-05-10 07:53 | A.OFFPC_ITS ---
Vital Signs 05/10/24 07:54 Height 4 ft 11 in Weight 124 lb BMI 25.0 BP 110/70 Blood Pressure Location Lt brachial Position Sitting Intake Visit Reasons: Depression Intake Note: Patient here for a follow up Depression Senior Project Leader/Team Lead Required: Yes Senior Project Leader/Team Lead Language: Well Treatment Offsider Name: Catrina Cruz MD Information Interpreted: non-clinical & clinical Accompanied by: Self / Same As Patient Allergies No Known Allergies Allergy (Verified 05/10/24 08:17) Medication List - Last Reconciled 05/10/24 by Catrina Cruz MD betamethasone valerate 0.1% 1 appl topical .twice weekly 90 days bupropion HCl XL 150 mg PO QAM 90 days diphenhydramine HCl (Benadryl) 25 mg PO BID PRN hydroxyzine pamoate 25 mg PO BEDTIME PRN 90 days omeprazole 40 mg (2 x 20 mg) PO DAILY rizatriptan 10 mg PO Q2-4H PRN 30 days thiamine HCl (vitamin B1) 100 mg PO DAILY tirzepatide (weight loss) (Zepbound) 2.5 mg (0.5 mL) subcut QWEEK 4 weeks valacyclovir (Valtrex) 500 mg PO BID Tobacco use date assessed: 05/10/24 Dental Screening Dental Screen Date: 11/04/23 HPI HPI Comments History of Present Illness Details The patient is a 43-year-old female presenting for follow-up on medication and weight management. She has a background of obesity, managed in part through bariatric surgery performed in 2008. Despite this intervention, ongoing weight management remains a concern. She previously tried phentermine, though it was deemed ineffective. Depression, managed with bupropion, is well-controlled at present. She also experiences migraines managed with rizatriptan. Previous concerns included elevated cholesterol which is currently under control. Current medications were reviewed, and challenges obtaining authorization for semaglutide were discussed. Approval was secured for a dose escalation from 2.5 mg to 5 mg to aid weight loss efforts and support cardiovascular health. GERD stable with PPIs. [facility] Medical History (Updated 05/10/24 @ 08:24 by Catrina Cruz MD) Fibroid Hand pain Leg pain Right arm pain Scoliosis Left foot pain Hand numbness Skin lesions GERD (gastroesophageal reflux disease) Iron deficiency anemia due to chronic blood loss Class 1 obesity with body mass index (BMI) of 32.0 to 32.9 in adult Tonsillectomy planned Burning reflux Surgical History History of lumpectomy of right breast History of bilateral breast reduction surgery History of hernia repair History of tonsillectomy History of section H/O abdominoplasty Hx of breast reduction, elective History of gastric surgery LAP-BAND surgery status Tubal ligation status Family History Father Stroke Parkinsons disease Lewy body dementia Mother Lung cancer Maternal Grandmother Throat cancer Lung cancer Paternal Grandmother Stomach cancer Maternal Grandfather No problems noted. Paternal Grandfather No problems noted. Maternal Aunt Ovarian cancer Paternal Aunt Ovarian cancer Breast cancer Social History Housing: House Are you a primary caregivers non medical to a significant other at home: No Do you presently have visiting nurse or other home services: No Alcohol intake: never Patient Tobacco Use Status: Never used Tobacco e-Cigarette/Vaping Use: Never Used Second Hand Smoke Exposure: No service: No Current occupational status: disabled Cognitive needs: No Hearing needs: No Vision needs: Yes (glasses) Female Reproductive History Menstrual Age of Menarche: 6 Questionnaire PHQ-9 Over the last 2 weeks, how often have you been bothered by any of the following problems? 1. Little interest or pleasure in doing things: not at all 2. Feeling down, depressed, or hopeless: not at all 3. Trouble falling or staying asleep, or sleeping too much: not at all 4. Feeling tired or having little energy: not at all 5. Poor appetite or overeating: not at all 6. Feeling bad about yourself - or that you are a failure or have let yourself or your family down: not at all 7. Trouble concentrating on things, such as reading the newspaper or watching television: not at all 8. Moving or speaking so slowly that other people could have noticed. Or the opposite - being so fidgety or restless that you have been moving around a lot more than usual: not at all 9. Thoughts that you would be better off or of hurting yourself in some way: not at all Total score: 0 Depression Screening Interpretation: Negative Depression Screening Done: Yes 93316 - PHQ-9 Billing: Yes Source: Developed by Drs. Gomez Grajeda, Dahlia Jerome, Juan Carlos Deluna and colleagues, with an educational jitendra from [employer]. Thrive Questionnaire Date Thrive assessed: 05/10/24 I am a: Patient What is your living situation today?: I have a steady place to live Within the past 12 months, did the food you bought not last and you didn't have the money to get more?: I choose not to answer this question Within the past 12 months, did you worry whether your food would run out before you got money to buy more?: I choose not to answer this question Do you have trouble paying for medicines?: No Do you have trouble getting transportation to medical appointments?: No Do you have trouble paying your heating and electricity bill?: No Do you have trouble taking care of your child, family member or friend?: I choose not to answer this question Do you have trouble with day-to-day activities such as bathing, preparing meals, shopping, managing finances, etc.?: I choose not to answer this question Are you currently unemployed and looking for a job?: I choose not to answer this question Are you interested in more education?: I choose not to answer this question Please select the resources that you would like help with: None Currently or been in a relationship where the following occur: I choose not to answer THRIVE Score: 0 AUDIT C Alcohol Use Questionnaire (AUDIT-C) 1. How often do you have a drink containing alcohol?: Never Total Score: 0 Score Reviewed/Action Taken: No GARY-7 AMB Questionnaire GARY-7 Date GARY - 7 assessed: 05/10/24 Feeling nervous, anxious, or on edge: 0 = Not at all Not being able to stop or control worryin = Not at all Worrying too much about different things: 0 = Not at all Trouble relaxin = Not at all Being so restless that it is hard to sit still: 0 = Not at all Becoming easily annoyed or irritable: 0 = Not at all Feeling afraid as if something awful might happen: 0 = Not at all Total GARY-7 score (0-4 normal; 5-9 mild; 10-14 moderate; 15-21 severe): 0 Source: Developed by Drs. Gomez Grajeda, Dahlia Jerome, Juan Carlos Deluna and colleagues, with an educational jitendra from [employer]. GARY-7 Assessment Billing GARY-7 Assessment Tool: GARY-7 Assessment 45632 Review of Systems Const All systems reviewed & are unremarkable except as noted in HPI and below Card Denies chest pain at rest, Denies chest pain with activity, Denies edema, Denies irregular heart rhythm, Denies claudication, Denies dyspnea, Denies dyspnea on exertion, Denies orthopnea, Denies paroxysmal nocturnal dyspnea and Denies slow heart rate Resp Denies cough, Denies dyspnea and Denies dyspnea on exertion Musc Denies abnormal gait, Denies atrophy, Denies deformity and Denies limited range of motion Skin/Breast Denies bleeding lesions, Denies changing lesions and Denies rash Neuro Denies abnormal gait and Denies lack of coordination Physical exam (Primary Care) Vital Signs: Last Vital Signs BP 110/70 05/10/24 07:54 BMI result Body Mass Index 25.0 Tobacco/Smoking Status: Tobacco use Status Tobacco use date assessed 05/10/24 05/10/24 08:00 Patient Tobacco Use Status Never used Tobacco 05/10/24 08:00 e-Cigarette/Vaping Use Never Used 05/10/24 08:00 PHQ-9: PHQ-9 Score PHQ-9: Total score 0 05/10/24 09:21 Depression Screening Interpretation: Negative Thrive Assessment: Date of Thrive Assessment Date Thrive assessed 05/10/24 05/10/24 08:00 Currently or been in a relationship where the following occur: I choose not to answer Neck Neck: Yes normal visual inspection and Yes supple Resp Effort & Inspection: normal respiratory effort Auscultation: clear to auscultation bilaterally Cardio Jugular venous distension: no JVD Rate: regular rate Rhythm: regular rhythm Heart sounds: S1 normal heart sound present and S2 normal heart sound present Extrem General: Yes full ROM Coding Level of Care Code Est Pt Level 4 (52676) Complex EM visit Add On G2211 Diagnoses Mild recurrent major depression F33.0 Overweight (BMI 25.0-29.9) E66.3 Migraine without aura and without status migrainosus, not intractable G43.009 Migraine type: migraine (< 15 days per month) without aura Status migrainosus presence: without status migrainosus Intractability: not intractable Gastroesophageal reflux disease without esophagitis K21.9 Esophagitis presence: without esophagitis Additional Codes GARY-7 Assessment Billing - GARY-7 Assessment Tool: GARY-7 Assessment 61994 ([id number]) PHQ-9 - 39412 - PHQ-9 Billing: Yes ([id number]) Time Spent (min) 23 Assessment & Plan Assessment & Plan (1) Mild recurrent major depression: Code(s): F33.0 - Major depressive disorder, recurrent, mild Category: Medical (2) Overweight (BMI 25.0-29.9): Code(s): E66.3 - Overweight Category: Medical (3) Migraines: Code(s): G43.909 - Migraine, unspecified, not intractable, without status migrainosus Category: Medical Qualifiers: Migraine type: migraine (< 15 days per month) without aura Status migrainosus presence: without status migrainosus Intractability: not intractable Qualified Code(s): G43.009 - Migraine without aura, not intractable, without status migrainosus (4) GERD (gastroesophageal reflux disease): Code(s): K21.9 - Gastro-esophageal reflux disease without esophagitis Category: Medical Qualifiers: Esophagitis presence: without esophagitis Qualified Code(s): K21.9 - Gastro-esophageal reflux disease without esophagitis Plan The management of the patient's weight involves continued use of ozempic, increasing to a 5 mg dose to enhance her weight loss results with attention to cardiovascular health. Depression remains controlled with bupropion, which supports mood regulation and weight mitigation. Rizatriptan will continue for migraine management. A follow-up appointment is scheduled for October, with accompanying lab work planned. Patient was informed and verbally consented to the use of an ambient scribe for clinic note documentation during this visit. During our conversation, I emphasized the importance of maintaining close adherence to the medication regimen for optimal management of both weight and mood disorders. We discussed the necessity of titrating ozempic to 5 mg to improve weight outcomes along with its cardiovascular benefits. The patient understood and consented to this plan. I explained the need for regular follow- up and potential lab evaluations before her October appointment to reassess her progress and make any appropriate medication adjustments. The challenges regarding insurance approvals were acknowledged, and I assured her of my ongoing support to facilitate these processes. Orders: Orders Lipid Panel 6 Months E78.5 - Hyperlipidemia, unspecified Comprehensive [place]. Panel Fast 6 Months E66.3 - Overweight Medications: New tirzepatide (weight loss) (Zepbound) 5 mg (0.5 mL) subcut QWEEK 2 mL 0RF 4 weeks E66.3 - Overweight Discontinued tirzepatide (weight loss) (Zepbound) for 4 weeks Discontinued Reason: Patient Completed Course 2.5 mg (0.5 mL) subcut QWEEK 4 weeks 2 mL 0RF E66.9 - Obesity, unspecified Patient Instructions: - Continue taking ozempic, titrating the dose to 5 mg as prescribed. - Maintain bupropion for depression and rizatriptan for migraine management. - Schedule and attend a follow-up visit in October for weight management review. - Complete laboratory tests one week before the October appointment. - Follow any dietary and lifestyle recommendations given to support weight management. - Contact the clinic if any side effects or issues with medication arise. - Ensure active communication regarding insurance authorizations for medications.
[2024-05-10 07:54] VITALS: BP 110/70; BMI 25.0
== END 2024-05-10 09:09 | disposition home or self-care (01) ==
LOC: HO.HMCH 07:43
PROVIDERS: PCP Internal Medicine; Visit Provider Internal Medicine
DX: F33.0 Major depressive disorder, recurrent, mild (principal); E66.3 Overweight; G43.009 Migraine without aura, not intractable, without status migrainosus; K21.9 Gastro-esophageal reflux disease without esophagitis

== ENCOUNTER → 2024-05-10 07:42 | Outpatient (BNVA) | payer OTHER, SELFPAY | PROVIDERS: PCP Internal Medicine; Visit Provider Internal Medicine | DX: F33.0 Major depressive disorder, recurrent, mild (principal); E66.3 Overweight; G43.009 Migraine without aura, not intractable, without status migrainosus; K21.9 Gastro-esophageal reflux disease without esophagitis | CPT/HCPCS: 96127; 99212 ==

== ENCOUNTER 2024-06-06 10:51 | Outpatient (REF) | payer OTHER, SELFPAY ==
--- NOTE | ~2024-06-06 | US_ITS ---
CLINICAL HISTORY: D21.9 - leiomyoma --- Additional Notes or Special Instructions: Repeat for stabilit y in 06 12 2024 US pelvis: Transabdominal and Transvaginal with ovarian color Doppler: Comparison: 12/14/2023 Findings: The uterus is normal in size, 9.3 cm in length. The uterus on the previous exam measured 9 cm in length. Endometrial thickness is 0.9 The RIGHT ovary measures 4.2 x 1.8 x 2.8 cm The LEFT ovary measures 2.0 x 1.6 x 1.9 cm Bilateral ovarian spectral Doppler signals are normal. No solid ovarian masses. A 9 mm x 10 mm cyst in the right ovary is most consistent with partially collapsed corpus luteum cyst. A trace of fluid is present in the posterior cul-de-sac. Impression: Multiple small uterine fibroids are present: A 10 mm diameter fibroid is present in the left side of the uterine fundus, not present on the previous exam. A 1.4 x 0.9 cm fibroid is located in the anterior body of the uterus, not present on the previous exam. A 1.1 x 0.9 cm fibroid is located in the right side of the body of the uterus. This fibroid was present on the previous exam measuring 1.4 x 1.1 cm. A 6 x 4 mm fibroid is present in the lower uterine segment and was not present on the previous exam This document has been electronically signed by: Justin Garner MD on 06/07/2024 14:50:49
--- OUTSIDE RECORDS SUMMARY | 2024-06-06 12:41 | XMS_ITS | Clinical Summary ---
Author Organization [employer] [facility] ity Address [address] [place] [address] Care Team Providers Care Rn Radiology Name Role Phone Catrina Cruz MD Primary Care Provider [phone] Surgical History Surgery Date Site/Laterality Comments ESOPHAGOGASTRODUODENOSCOPY [...] Vaccine (2023-2 5 season) 2023 Influenza Vaccine (Season Ended) 2024 HIB Vaccines Aged Out No longer eligi [...] age to complete this topic Meningococcal B Vaccine Aged Out No l onger eligible based on patient's age to complete [...] age to complete this topic Care Teams Rn Radiology Relationship Specialty Start Date End Date Catrina Cruz MD [address] [place] [address] , [address] [facility] D/B/A: [facility] BENJI Hobson PCP - General Internal Medicine 11/27/20
== END 2024-06-06 10:52 | disposition home or self-care (01) ==
LOC: HO.US 10:51
PROVIDERS: PCP Internal Medicine; Visit Provider Advanced Practice Midwife
DX: D21.9 Benign neoplasm of connective and other soft tissue, unspecified (principal)
CPT/HCPCS: 76830; 76856

== ENCOUNTER → 2024-06-06 10:55 | Outpatient (BNV) | payer OTHER, SELFPAY | PROVIDERS: PCP Internal Medicine; Visit Provider Radiology Diagnostic Radiology | DX: D25.9 Leiomyoma of uterus, unspecified (principal) | CPT/HCPCS: 76830; 76856 ==

== ENCOUNTER 2024-06-14 08:10 | Outpatient (AMB) | payer OTHER, SELFPAY ==
--- OUTSIDE RECORDS SUMMARY | 2024-06-14 08:22 | XMS_ITS | Clinical Summary ---
Author Organization [employer] [employer] [facility] ity Address [address] [place] [address] Care Team Providers Care Reviewer Sales Name Role Phone Catrina Cruz MD Primary Care Provider [phone] Surgical History Surgery Date Site/Laterality Comments ESOPHAGOGASTRODUODENOSCOPY 07/28/07 PROCEDURE: [place] EGD TRANSORAL BIOPSY SINGLE/MULTIPLE; COMMENT: r/o Christensen's esophagus-bx:No BE, mild chronic inflammation, Nl stomach-bx:mild reactive gastropathy, Nl duodenum-bx:mild increase in intraepithelial lymphocytes (not suggestive of celiac disease) COLONOSCOPY W/ BIOPSIES 07/28/07 PROCEDURE: [place] COLONOSCOPY STOMA W/BIOPSY SINGLE/MULTIPLE; COMMENT: Up to cecum, regular preparation, normal colon exam. Random colon bx:prominent lymphoid aggregates, no specific pathologic change. HERNIA REPAIR PROCEDURE: [place] REPAIR FIRST ABDOMINAL WALL HERNIA BREAST REDUCTION PROCEDURE: [place] BREAST REDUCTION LAPAROSCOPIC GASTRIC BANDING PROCEDURE: LAP [...] age to complete this topic Care Teams Reviewer Sales Relationship Specialty Start Date End Date Catrina Cruz MD [address] [place] [address] , [address] [facility] D/B/A: [facility] BENJI Hobson PCP - General Internal Medicine 11/27/20
[2024-06-14 08:28] VITALS: BP 100/60; BMI 25.0
--- NOTE | 2024-06-14 08:28 | MHC.OFFVIS ---
Vital Signs 06/14/24 08:28 Height 4 ft 11 in Weight 124 lb BMI 25.0 BP 100/60 Intake Visit Reasons: Mirena exchange Objects Conservator: Objects Conservator Present (Priscila) Allergies No Known Allergies Allergy (Verified 06/14/24 08:28) HPI Comments Details: Patient is here today follow up ultrasound history of AUB with ongoing bleeding, recent ultrasound revealed a low-lying IUD, here for an exchange. She denies any symptoms. She does not want an exchange today and wants to look at other options for treatment. History of fibroids. [facility] Medical History Fibroid Hand pain Leg pain Right arm pain Scoliosis Left foot pain Hand numbness Skin lesions GERD (gastroesophageal reflux disease) Iron deficiency anemia due to chronic blood loss Class 1 obesity with body mass index (BMI) of 32.0 to 32.9 in adult Tonsillectomy planned Burning reflux Surgical History History of lumpectomy of right breast History of bilateral breast reduction surgery History of hernia repair History of tonsillectomy History of section H/O abdominoplasty Hx of breast reduction, elective History of gastric surgery LAP-BAND surgery status Tubal ligation status Family History Father Stroke Parkinsons disease Lewy body dementia Mother Lung cancer Maternal Grandmother Throat cancer Lung cancer Paternal Grandmother Stomach cancer Maternal Grandfather No problems noted. Paternal Grandfather No problems noted. Maternal Aunt Ovarian cancer Paternal Aunt Ovarian cancer Breast cancer Social History Housing: House Are you a primary career resource technician to a significant other at home: No Do you presently have visiting nurse or other home services: No Alcohol intake: never Patient Tobacco Use Status: Never used Tobacco e-Cigarette/Vaping Use: Never Used Second Hand Smoke Exposure: No service: No Current occupational status: disabled Cognitive needs: No Hearing needs: No Vision needs: Yes (glasses) Female Reproductive History Menstrual Age of Menarche: 6 Review of Systems Const All systems reviewed & are unremarkable except as noted in HPI and below Physical Exam Vital Signs: Last Vital Signs BP 100/60 06/14/24 08:28 BMI result Body Mass Index 25.0 Const General: cooperative, healthy appearing and no acute distress Orientation/consciousness: patient oriented x3 GI Inspection: Yes normal to inspection Palpation (GI): Soft to palpation and Other GI palpation findings present (Nontender) Rectal Exam - Female: visual inspection normal General: Yes bladder normal to palpation External Female Exam: normal appearance of the urethra Speculum Exam - Vagina: normal appearance of the vagina, normal palpation, normal vaginal discharge and vaginal bleeding (Small amount of dark red blood) Speculum Exam - Cervix: normal appearance of the cervix and normal palpation Bimanual exam- vagina & uterus: normal bimanual exam, normal palpation, uterine size normal, bladder normal to palpation, normal palpation, uterine shape normal and non-tender Bimanual Exam- Adnexa, other: normal adnexae OB/external & speculum: vaginal bleeding (Small amount of dark red blood) Neuro General: patient oriented x3 Office Procedures Contraception Insert/Removal Details Details: The patient presents today for a IUD removal due to a low lying positioned IUD, she does not want the exchange today. She was counseled regarding the removal of her IUD. She was consented for the procedure along with anticipatory guidance for the removal and the consents form was signed. She desires to proceed with the IUD removal. IUD Removal Procedure: The patient was placed in the dorsal lithotomy position. A speculum was inserted vaginally and the cervix and strings were visualized at the os. A ring forcep was utilized, and the patient was asked to give a deep cough while the strings were grasped and gently tugged at the same time, removing the IUD device intact. Minimal bleeding was observed. All of the equipment was removed. The patient tolerated the procedure well and left the office in good condition. IUD Removal Information: You may have light bleeding for several days, tapering off to a brown or pink color. Mild cramping after removal is common. If not allergic, you may take an over the counter mild analgesic for the discomfort, such as Tylenol or Advil (use dosing and frequency per the manufacturers recommendations). Call the office if you experience: fever (over 100.4), flu like symptoms, abdominal or pelvic pain, foul smelling discharge or heavy bleeding. If not planning for a future , another form of control is recommended. Use of condoms for prevention of STI's is also recommended, if indicated. This note is constructed using voice recognition software. ?While every effort has been made to ensure accuracy, land leases and rentals manager errors may have been included. ? 35999 - Removal Results AMB Test Urine AMB Test Urine Negative Last Edit by EDEL Nathan on 06/14/24 08:34 Results Reviewed Results Reviewed: Laboratory Last Values [facility] Clinic Negative 06/14/24 08:[address] [address] Ultrasound Report Signed with Addenda Patient: Ya Velazquez MR#: [id number] : 1980 Acct:[id number] Age/Sex: 43 / F ADM Date: 06/06/24 Loc: HO.US Attending Dr: Sofiya Melendez CNM Ordering Physician: Sofiya Melendez CNM Date of Service: 06/06/24 Procedure(s): US pelvic and transvaginal Accession Number(s): [id number] cc: Sofiya Melendez CNM; Catrina Montanez MD~ ADDENDUMThis document has been electronically signed by: Justin Garner MD on 06/07/2024 14:50:49 ADDENDUM: Final addendum: A segment of the intrauterine device is visualized in the lower uterine segment, example: Image 157 transcervical view. And is also visualized attenuating the sound beam centrally in the body and fundus of the uterus, image 53/96, series 1. This document has been electronically signed by: Justin Garner MD on 06/08/2024 21:13:00 Addendum Dictated By: Justin Garner MD Addendum Signed By: <Electronically signed by Justin Garner MD in OV> 06/08/242113 Addendum Cosigned By: DD/ TD/TT: 06/08/24 CLINICAL HISTORY: D21.9 - leiomyoma --- Additional Notes or Special Instructions: Repeat for stability in 06 12 2024 US pelvis: Transabdominal and Transvaginal with ovarian color Doppler: Comparison: 12/14/2023 Findings: The uterus is normal in size, 9.3 cm in length. The uterus on the previous exam measured 9 cm in length. Endometrial thickness is 0.9 The RIGHT ovary measures 4.2 x 1.8 x 2.8 cm The LEFT ovary measures 2.0 x 1.6 x 1.9 cm Bilateral ovarian spectral Doppler signals are normal. No solid ovarian masses. A 9 mm x 10 mm cyst in the right ovary is most consistent with partially collapsed corpus luteum cyst. A trace of fluid is present in the posterior cul-de-sac. Impression: Multiple small uterine fibroids are present: A 10 mm diameter fibroid is present in the left side of the uterine fundus, not present on the previous exam. A 1.4 x 0.9 cm fibroid is located in the anterior body of the uterus, not present on the previous exam. A 1.1 x 0.9 cm fibroid is located in the right side of the body of the uterus. This fibroid was present on the previous exam measuring 1.4 x 1.1 cm. A 6 x 4 mm fibroid is present in the lower uterine segment and was not present on the previous exam This document has been electronically signed by: Justin Garner MD on 06/07/2024 14:50:49 Dictated By: Justin Garner MD Signed By: <Electronically signed by Justin Garner MD in OV> 06/07/24 1451 DD/ 1450 TD/TT: 06/07/24 1450 [place]: Assessment & Plan Assessment & Plan (1) Abnormal uterine bleeding (AUB): Code(s): N93.9 - Abnormal uterine and vaginal bleeding, unspecified Category: Medical Plan: Counseled regarding AUB, CBC today. Encouraged hydration. Reviewed warnings and when to call for any heavy prolonged bleeding, symptoms of shortness of breath, lightheadedness or dizziness of feeling of syncope. Reviewed management for a abnormal uterine bleeding to include medical, Interventional Radiology, ablation procedure, or surgical treatment. She would like to look at her other options for treatment such as uterine ablation and or possible surgical consult. (2) Fibroid: Code(s): D21.9 - Benign neoplasm of connective and other soft tissue, unspecified Category: Medical Plan: Discussed: Ultrasound findings-multiple fibroids. Impression: Multiple small uterine fibroids are present: A 10 mm diameter fibroid is present in the left side of the uterine fundus, not present on the previous exam. A 1.4 x 0.9 cm fibroid is located in the anterior body of the uterus, not present on the previous exam. A 1.1 x 0.9 cm fibroid is located in the right side of the body of the uterus. This fibroid was present on the previous exam measuring 1.4 x 1.1 cm. A 6 x 4 mm fibroid is present in the lower uterine segment and was not present on the previous exam This document has been electronically signed by: Justin Garner MD on 06/07/2024 14:50:49Counseled re: Leiomyoma: common pelvic neoplasm. Differential diagnosis-may include but not limited to- leiomyosarcoma which is a rare uterine sarcoma 3-7/100,000, difficult to distinguish from fibroids on ultrasound from uterine sarcoma's. Unlikely any single test will have a highly positive predictive value. Hysterectomy is not recommended for sole purpose of excluding malignant neoplasm. Consult for surgical exploration, medical treatment, other treatments, verses expectant management, pros and cons, risks and benefits. Expectant management follow up in 6 months, then yearly for stability. Patient prefers to proceed with expectant management. Report any AUB, pelvic pressure, bloating, or pain. Referral to MD if indicated for level of care if indicated. Total time I personally spent on visit and management today: ?15 minutes. Time spent included review of pertinent office notes in the electronic health record; review of laboratory and imaging results; review of personal family medical history; performing physical exam; discussing diagnosis and plan of care with the patient; documenting the encounter in the EMR. (3) Encounter for IUD removal: Code(s): Z30.432 - Encounter for removal of intrauterine contraceptive device Plan See procedure notes. Orders: Orders Complete Blood Count no Diff Today N93.9 - Abnormal uterine and vaginal bleeding, unspecified AMB HCG Urine Test Today N93.9 - Abnormal uterine and vaginal bleeding, unspecified, Z32.02 - Encounter for test, result negative US pelvic and transvaginal 11/28/24 D21.9 - Benign neoplasm of connective and other soft tissue, unspecified Coding Level of Care Code Est Pt Level 2 (70597) Procedure Only Diagnoses Abnormal uterine bleeding (AUB) N93.9 Fibroid D21.9 Encounter for IUD removal Z30.432 CPT Codes Details - Contraception: 54922 - Removal ([id number])
== END 2024-06-14 10:53 | disposition home or self-care (01) ==
LOC: HO.HWS 08:10
PROVIDERS: PCP Internal Medicine; Visit Provider Advanced Practice Midwife
DX: N93.9 Abnormal uterine and vaginal bleeding, unspecified (principal); D25.9 Leiomyoma of uterus, unspecified; Z30.432 Encounter for removal of intrauterine contraceptive device; Z32.02 Encounter for pregnancy test, result negative
CPT/HCPCS: 58301; 99212; 99459

== ENCOUNTER 2024-06-14 08:10 | Outpatient (REF) | payer OTHER, SELFPAY ==
[2024-06-14 09:13] LABS: Hematocrit 27.2 % (37.0-47.0); Hemoglobin 7.8 g/dl (12.0-16.0); Mean Corpuscular HGB Conc 28.7 g/dl (31.0-35.0); Mean Corpuscular Hemoglobin 20.4 pg (27.0-33.0); Mean Platelet Volume 9.1 fL (9.4-12.3); Platelet Count 340 X10*3/uL (160-400); Red Blood Count 3.83 X10*6/uL (4.20-5.50); Red Cell Distribution Width 16.9 % (11.0-16.0); White Blood Count 7.2 X10*3/uL (4.8-10.8)
--- OUTSIDE RECORDS SUMMARY | 2024-06-14 09:17 | XMS_ITS | Clinical Summary ---
Author Organization [facility] [employer] [facility] ity Address [address] [place] [address] Care Team Providers Care Otolaryngology Physician Name Role Phone Catrina Cruz MD Primary Care Provider [phone] Surgical History Surgery Date Site/Laterality Comments ESOPHAGOGASTRODUODENOSCOPY 07/28/07 PROCEDURE: ME EGD TRANSORAL BIOPSY SINGLE/MULTIPLE; COMMENT: r/o Christensen's esophagus-bx:No BE, mild chronic inflammation, Nl stomach-bx:mild reactive gastropathy, Nl duodenum-bx:mild increase in intraepithelial lymphocytes (not suggestive of celiac disease) COLONOSCOPY W/ BIOPSIES 07/28/07 PROCEDURE: ME COLONOSCOPY STOMA W/BIOPSY SINGLE/MULTIPLE; COMMENT: Up to cecum, regular preparation, normal colon exam. Random colon bx:prominent lymphoid aggregates, no specific pathologic change. HERNIA REPAIR PROCEDURE: ME REPAIR FIRST ABDOMINAL WALL HERNIA BREAST REDUCTION PROCEDURE: ME BREAST REDUCTION LAPAROSCOPIC GASTRIC BANDING PROCEDURE: LAP [...] age to complete this topic Care Teams Otolaryngology Physician Relationship Specialty Start Date End Date Catrina Cruz MD [address] [place] [address] , [address] [facility] D/B/A: [facility] BENJI Hobson PCP - General Internal Medicine 11/27/20
== END 2024-06-14 08:11 | disposition home or self-care (01) ==
LOC: HO.LAB 08:10
PROVIDERS: PCP Internal Medicine; Visit Provider Advanced Practice Midwife
DX: Z30.432 Encounter for removal of intrauterine contraceptive device (principal); N93.9 Abnormal uterine and vaginal bleeding, unspecified; D21.9 Benign neoplasm of connective and other soft tissue, unspecified
CPT/HCPCS: 36415; 58301; 81025; 85027; 99212; 99459

== ENCOUNTER 2024-06-14 13:52 | Outpatient (AMB) | payer OTHER, SELFPAY ==
--- NOTE | 2024-06-14 14:43 | MHC.OFFVIS ---
Intake Visit Reasons: AUB Oncology Rep Specialist Required: No Information Interpreted: non-clinical & clinical Fisherman Helper: Fisherman Helper Present (Diann HOLLINGSWORTH) Accompanied by: Self / Same As Patient Allergies No Known Allergies Allergy (Verified 06/14/24 14:44) HPI Comments Details: The patient presents referred from Sofiya Melendez CNM regarding abnormal uterine bleeding. The following workup was done.: Today H&H= 7.8/27.2 TSH, hCG, GC and chlamydia were negative. Endometrial biopsy pathology showed the following: Secretory endometrium; no atypia or hyperplasia identified. Co testing was done was negative. Last screening Mammogram was in 12/16 was neg according to the pt, no records avaiable 06/07/2024 Pelvic ultrasound showed the following: This document has been electronically signed by: Justin Garner MD on 06/07/2024 14:50:49 ADDENDUM: Final addendum: A segment of the intrauterine device is visualized in the lower uterine segment, example: Image 157 transcervical view. And is also visualized attenuating the sound beam centrally in the body and fundus of the uterus, image 53/96, series 1. This document has been electronically signed by: Justin Garner MD on 06/08/2024 21:13:00 Addendum Dictated By: Justin Garner MD Transabdominal and Transvaginal with ovarian color Doppler: Comparison: 12/14/2023 Findings: The uterus is normal in size, 9.3 cm in length. The uterus on the previous exam measured 9 cm in length. Endometrial thickness is 0.9 The RIGHT ovary measures 4.2 x 1.8 x 2.8 cm The LEFT ovary measures 2.0 x 1.6 x 1.9 cm Bilateral ovarian spectral Doppler signals are normal. No solid ovarian masses. A 9 mm x 10 mm cyst in the right ovary is most consistent with partially collapsed corpus luteum cyst. A trace of fluid is present in the posterior cul-de-sac. Impression: Multiple small uterine fibroids are present: A 10 mm diameter fibroid is present in the left side of the uterine fundus, not present on the previous exam. A 1.4 x 0.9 cm fibroid is located in the anterior body of the uterus, not present on the previous exam. A 1.1 x 0.9 cm fibroid is located in the right side of the body of the uterus. This fibroid was present on the previous exam measuring 1.4 x 1.1 cm. A 6 x 4 mm fibroid is present in the lower uterine segment and was not present on the previous exam Mirena IUD was taken out by Sofiya Melendez today [facility] Medical History Fibroid Hand pain Leg pain Right arm pain Scoliosis Left foot pain Hand numbness Skin lesions GERD (gastroesophageal reflux disease) Iron deficiency anemia due to chronic blood loss Class 1 obesity with body mass index (BMI) of 32.0 to 32.9 in adult Tonsillectomy planned Burning reflux Surgical History History of lumpectomy of right breast History of bilateral breast reduction surgery History of hernia repair History of tonsillectomy History of section H/O abdominoplasty Hx of breast reduction, elective History of gastric surgery LAP-BAND surgery status Tubal ligation status Family History Father Stroke Parkinsons disease Lewy body dementia Mother Lung cancer Maternal Grandmother Throat cancer Lung cancer Paternal Grandmother Stomach cancer Maternal Grandfather No problems noted. Paternal Grandfather No problems noted. Maternal Aunt Ovarian cancer Paternal Aunt Ovarian cancer Breast cancer Social History Housing: House Are you a primary day care director to a significant other at home: No Do you presently have visiting nurse or other home services: No Alcohol intake: never Patient Tobacco Use Status: Never used Tobacco e-Cigarette/Vaping Use: Never Used Second Hand Smoke Exposure: No service: No Current occupational status: disabled Cognitive needs: No Hearing needs: No Vision needs: Yes (glasses) Female Reproductive History Menstrual Age of Menarche: 6 Review of Systems Const All systems reviewed & are unremarkable except as noted in HPI and below Physical Exam General: Yes no CVA tenderness External Female Exam: normal external appearance and normal appearance of the urethra Speculum Exam - Vagina: normal appearance of the vagina, normal palpation, no lesions, no masses and other (No evidence of active vaginal bleeding) Speculum Exam - Cervix: normal appearance of the cervix, normal palpation, no lesions, no masses and nontender Bimanual exam- vagina & uterus: normal bimanual exam, normal palpation, uterine size normal, normal palpation, uterine shape normal, No Cervical tenderness present and non-tender Bimanual Exam- Adnexa, other: normal adnexae Back/Spine/Pelvis Back: no CVA tenderness Results AMB Test Urine AMB Test Urine Negative Last Edit by EDEL Nathan on 06/14/24 08:34 Assessment & Plan Assessment & Plan (1) Abnormal uterine bleeding (AUB): Comment: With myomas and anemia Code(s): N93.9 - Abnormal uterine and vaginal bleeding, unspecified Category: Medical Plan: Iron sulfate 325 mg p.o. t.i.d. recommended to the patient. Will start on Provera 10 mg p.o. q.d. Instructions given the patient to call or go to emergency room in case of heavy vaginal bleeding. Discussed with the patient the results of the work up done and options of treatment including Lysteda, control pills, Mirena IUD, endometrial ablation and hysterectomy. All pros, cons, risks and benefits if each option was discussed with the patient and the patient decided to go ahead with definitive surgical management, hysterectomy. Discussed with the patient the different types of hysterectomies including, vaginal, laparoscopic assisted vaginal, robotic assisted laparoscopic,& abdominal with BSO. All pros, cons, r/b of each approach were discussed the patient including evidence that morbidity is less and recovery is shorter with minimally invasive approaches to hysterectomy. Discussed with the patient the lack of availability of the robot DaVinci robot and/or minimally invasive stoneworking belt sander specialist at [facility]. The Patient requested to be referred to a tertiary care center. Instructed the patient to call our office back in case a referral appointment is not scheduled, missed or canceled so that we will assist on rescheduling another appointment, the patient verbalized understanding agreed with the plan. Medications: New medroxyprogesterone (Provera) start Provera 1 tablet daily 10 mg PO DAILY 10 days 90 tabs 0RF Coding Level of Care Code Est Pt Level 3 (95821) Diagnoses Abnormal uterine bleeding (AUB) N93.9
--- OUTSIDE RECORDS SUMMARY | 2024-06-14 16:36 | XMS_ITS | Clinical Summary ---
Author Organization [facility] [employer] [facility] ity Address [address] [place] [address] Care Team Providers Care Gunstock Repairer Name Role Phone Catrina Cruz MD Primary Care Provider [phone] Surgical History Surgery Date Site/Laterality Comments ESOPHAGOGASTRODUODENOSCOPY 07/28/07 PROCEDURE: [place] EGD TRANSORAL BIOPSY SINGLE/MULTIPLE; COMMENT: r/o Christensen's esophagus-bx:No BE, mild chronic inflammation, Nl stomach-bx:mild reactive gastropathy, Nl duodenum-bx:mild increase in intraepithelial lymphocytes (not suggestive of celiac disease) COLONOSCOPY W/ BIOPSIES 07/28/07 PROCEDURE: [place] COLONOSCOPY STOMA W/BIOPSY SINGLE/MULTIPLE; COMMENT: Up to cecum, regular preparation, normal colon exam. Random colon bx:prominent lymphoid aggregates, no specific pathologic change. HERNIA REPAIR PROCEDURE: [place] REPAIR FIRST ABDOMINAL WALL HERNIA BREAST REDUCTION PROCEDURE: [place] BREAST REDUCTION LAPAROSCOPIC GASTRIC BANDING PROCEDURE: LAP [...] age to complete this topic Care Teams Gunstock Repairer Relationship Specialty Start Date End Date Catrina Cruz MD [address] [place] [address] , [address] [facility] D/B/A: [facility] BENJI Hobson PCP - General Internal Medicine 11/27/20
== END 2024-06-14 15:05 | disposition home or self-care (01) ==
LOC: HO.HWS 13:53
PROVIDERS: PCP Internal Medicine; Visit Provider Obstetrics & Gynecology
DX: N93.9 Abnormal uterine and vaginal bleeding, unspecified (principal)
CPT/HCPCS: 99214; 99459

== ENCOUNTER 2024-11-21 08:02 | Outpatient (REF) | payer OTHER, SELFPAY ==
--- NOTE | 2024-11-21 09:11 | ECG_ITS ---
Test Reason : chest pain Blood Pressure : */* mmHG Vent. Rate : 70 BPM Atrial Rate : 70 BPM P-R Int : 132 ms QRS Dur : 70 ms QT Int : 430 ms P-R-T Axes : 54 60 58 degrees QTcB Int : 464 ms Normal sinus rhythm Normal ECG When compared with ECG of 13-Apr-2021 13:30, Vent. rate has decreased by 51 bpm Referred By: Catrina Cruz Electronically Signed By: GLENROY GUERRA
[2024-11-21 09:30] LABS: MANUAL DIFF FLAG NO
[2024-11-21 09:41] LABS: Hematocrit 32.0 % (37.0-47.0); Hemoglobin 9.7 g/dl (12.0-16.0); Imm Gran Abs Auto 0.02 X10*3/uL (0.00-0.03); Imm Gran Pct Auto 0.3 % (0.0-0.4); Lymphocytes Absolute Auto 2.0 X10*3/uL (1.2-4.9); Mean Corpuscular HGB Conc 30.3 g/dl (31.0-35.0); Mean Corpuscular Hemoglobin 21.9 pg (27.0-33.0); Mean Corpuscular Volume 72.2 fL (80.0-98.0); NRBC Abs Auto 0.000 X10*3/uL (0.0-0.012); NRBC Pct Auto 0.0 /100WBC (0.0-0.2); Platelet Count 399 X10*3/uL (160-400); Red Blood Count 4.43 X10*6/uL (4.20-5.50); White Blood Count 6.2 X10*3/uL (4.8-10.8)
--- OUTSIDE RECORDS SUMMARY | 2024-11-21 09:48 | XMS_ITS | Encounter Summary ---
Author Organization [employer] [facility] Address [address] [place] [address] Drive [address] [place] [id number] Phone Care Team Providers Care Transit Planning Manager Name Role Phone Catrina Montanez MD Primary Care Provid er Encounter Details Date Type Department Care Team (Late st Contact Info) Description 07/02/2023 Procedure Pass OR Admitting Dept - Virtual Department [address] [place] [address] Social History Tobacco Use Types Packs/Day Years Used Date Smoking Tobacco: Never Smokeless Tobacco: Never Alcohol Use Standard Drinks/Week Comments Never 0 (1 standard drink = 0.6 oz pur e alcohol) Education Answer Date Recorded Are you interested in more education? Not on rafael e 12/26/2022 Are you concerned about learning? Not on file 12/26/2022 No 12/26/2022 No 12/26/2022 Digital Access Answer Date Recorded No 12/26/2022 No 12/26/2022 Reliable internet access at home? Not on file 12/26/2022 Device with a working camera? Not on file Comments No Sex and Gender Information Value Date Recorded Sex Assigned at Female 05/07/2024 10:47 PM EDT Legal Sex Female 10:29 PM EDT Gender Identity Female 05/07/2024 10:47 PM EDT Sexual Orientation Straight 05/07/2024 10 :47 PM EDT Occupation Industry Job Start Date Job End Date unemployed Not on file Not on file Not on file documented as of this encounter Plan of Treatment Upcoming Encounters Date Type Department Care Team (Late st Contact Info) Description 01/20/2025 9:00 AM EST Office Visit [facility] General Surgical Care [address] [place] [address] Irlanda Kilgore MD [address] [facility], 2nd [place] [address] [email or web address] documented as of this encounter Visit Diagnoses Not on filedocumented in this encounter Care Teams Transit Planning Manager Relationship Specialty Start Date End Date Catrina Montanez MD [address] [place] [address] PCP - General Internal Medicine 12/26/22 documented as of this encounter Additional Source Comments The information contained in this document represents components of the legal health record. It is not the complete legal health record.[facility]
--- OUTSIDE RECORDS SUMMARY | 2024-11-21 09:48 | XMS_ITS | Encounter Summary ---
Author Organization [facility] Address [address] [place] [phone] Phone Care Team Providers Care Corporate Development Manager Name Role Phone Catrina Montanez MD Primary Care Provid er Encounter Details Date Type Department Care Team (Late st Contact Info) Description 05/07/2024 Procedure Pass [facility], Ct Scan - [facility] [address] [place] [address] Social History Tobacco Use Types Packs/Day Years [...] with a working camera? Not on file Intimate Partner Violence Answer Date R ecorded Are you denied basic needs s uch as food, clothing, or medical care? No 05/07/2024 In the past 12 months have y ou been in a relationship with a person who hurts, threatens, or tries to control you? No 05/07/2024 Are you denied basic needs s uch as food, clothing, or medical care? No 05/07/2024 In the past 12 months have y ou been in a relationship with a person who hurts, threatens, or tries to control you? No 05/07/2024 Comments No Sex and Gender Information Value Date Recorded Sex Assigned at Female 05/07/2024 10:47 PM EDT Legal Sex Female 10:29 PM EDT Gender Identity Female 05/07/2024 10:47 PM EDT Sexual Orientation Straight 05/07/2024 10 :47 PM EDT Occupation Industry Job Start Date Job End Date unemployed Not on file Not on file Not on file documented as of this encounter Functional Status * Calculated C-SSRS Risk Score (Lifetime/Recent) Answer Date of Assessment Author No Risk Indicated 05/07/2024 10:47 PM EDT Caro Randhawa RN * [place] Suicide Severity Rating Scale (Screener/Recent Self-Report) Question Answer Date of Assessment Author 1. Wish to be (Past 1 Month) No 025 10:47 PM EDT Caro Ignacio, PITO 2. Non-Specific Active Suici deb Thoughts (Past 1 Month) No 05/07/2024 10:47 PM EDT Harjeet Ignacio RN 6. Suicidal Behavior (Lifetime) No 10:47 PM EDT Caro Ignacio RN documented as of this encounter Plan of Treatment Upcoming Encounters Date Type Department Care Team (Late st Contact Info) Description 01/20/2025 9:00 AM EST Office Visit [facility] General Surgical Care [address] [place] [id number] Irlanda Kilgore MD [address] [facility], [address] [place] [address] documented as of this encounter Visit Diagnoses Not on filedocumented in this encounter Care Teams Corporate Development Manager Relationship Specialty Start Date End Date Catrina Montanez MD [address] [place] [address] PCP - General Internal Medicine 12/26/22 documented as of this encounter Additional Source Comments The information contained in this document represents components of the legal health record. It is not the complete legal health record.[facility]
--- OUTSIDE RECORDS SUMMARY | 2024-11-21 09:48 | XMS_ITS | Clinical Summary ---
Author Organization [employer] [facility] Address [address] [place] [phone] Phone Care Team Providers Care Yarding And Folding Machine Operator Name Role Phone Catrina Montanez MD Primary Care Provid er Allergies No known active allergies Medications omeprazole (PRILOSEC) 20 MG capsule Take 2 capsules by mouth every morning. 12/20/19 23 Active rizatriptan (MAXALT) 10 MG tablet Take 5 mg by mouth. 02/06/20 23 Active AIMOVIG AUTOINJECTOR 140 mg/mL subcutaneous injection INJECT 1 AUTOINJECTOR SUBCUTANEOUS INJECTION EVERY 28 DAYS Active hydrOXYzine (VISTARIL) 25 MG capsule Take 25 mg by mouth daily. Active furosemide (LASIX) 20 MG tablet TAKE 1 TABLET BY MOUTH EVERY OTHER DAY NEEDED FOR EDEMA FOR 30 DAYS 05/13/19 24 Active cyanocobalamin, vitamin B-12, 1000 MCG tablet Take 1,000 mcg by mouth daily. Gummies Active azyhpnnezxvx-oiu-t mich-FA-vit K 45 mg iron- 800 mcg-120 mcg Cap PATCHES Active docusate sodium (COLACE) 100 MG capsule Take 1 capsule (100 mg total) by mouth 2 (two) times a day. 60 capsule 07/02/19 24 Active betamethasone valerate 0.1 % ointment 12/28/19 24 Active VITAMIN B-1 100 MG tablet Take 1 tablet by mouth every morning. 11/04/19 24 Active buPROPion (WELLBUTRIN XL) 150 MG ER 24 hr tablet Take 150 mg by mouth every morning. 11/04/19 24 Active ondansetron (ZOFRAN-ODT) 4 MG disintegrating tablet Take 1 tablet (4 mg total) by mouth every 8 (eight) hours as needed for nausea. 15 tablet 05/09/19 25 Active ZEPBOUND 10 mg/0.5 mL subcutaneous pen 05/11/19 25 Active Active Problems Problem Noted Date Diagnosed Date RUQ pain 07/19/2024 Assessment & Plan (07/19/2024 10:18 AM EDT): This a 43-year-old woman who is doing relatively well with keeping her weight off with use of GLP-1 specifically Zepbound. She is planning to go up to 10 mg after the next 2 shots. She is not exercising asked her to add formalized exercise with strength training at least 30 minutes 3 times a week. She will increase her water intake to at least 64 ounces on a daily basis. She will ensure that she is getting at least 60 g of protein on a daily basis. The patient reports 2 months ago she was in the ER with right upper quadrant pain. CAT scan and ultrasound were both normal without any evidence of cholelithiasis. We will order a HIDA scan to see if the patient have biliary colic. Once I have the results I will call the patient. She will follow-up with me again in 6 months timeframe and we will order her annual blood work at that time. She will continue current medications as reviewed. BMI 25.0-25.9,adult 07/19/2024 BMI 23.0-23.9, adult 01/19/2024 Assessment & Plan (01/19/2024 4:04 PM EST): This is a 43-year-old woman who is doing well with weight loss after having been placed on Wegovy by her primary care physician. The patient is losing muscle mass instead of fat however. The patient was told to make sure she is getting at least 60 g of protein on a daily basis. She needs to add formalized exercise. She needs to increase her water intake to at least 64 ounces on a daily basis. She will have her annual blood work drawn and we will call her if any of those levels are abnormal. I will follow-up with her again in 6 months timeframe. Gastroesophageal reflux disease without esophagi tis 02/27/2023 Assessment & Plan (06/15/2023 10:22 AM EDT): This is a 42-year-old woman with a recurrence of her hiatal hernia. The patient has lost a significant amount of weight since restarting the medical component the program. I we will schedule a laparoscopic repair of her recurrent hiatal hernia. We have discussed risk benefits and alternatives and the patient would like to proceed. The patient will continue the postoperative bariatric eating plan to continue losing weight down to a normal weight after surgery. She was told she must stay on a pur ed diet for 2 weeks following the procedure. She will stop the Wegovy now until her surgery is completed. She will follow-up with me 2 weeks following the procedure. She was told to avoid all heavy lifting greater than 5 to 10 pounds the first 2 weeks after surgery and greater than 15 pounds for another 2 weeks following the surgery so there will be a 4-week restriction to lifting. I have answered all of her questions to her satisfaction. Bariatric surgery status 12/26/2022 Class 1 obesity due to exces s calories without serious comorbidity with body mass index (BMI) of 32.0 to 32.9 in adult 12/26/2022 Assessment & Plan (05/18/2023 10:23 AM EDT): This is a 42-year-old woman who has a recurrent hiatal hernia after gaining back a significant amount of weight after undergoing laparoscopic removal of gastric band with conversion to sleeve gastrectomy years ago. The patient is doing well with weight loss. She has about 5 more pounds to lose before we plan to repair her recurrent hiatal hernia. The patient will ensure that she is getting at least 800 tosin on a daily basis and continue to strive for 90 g of protein daily. The patient should add 10 minutes of strength training with resistance bands at least 3 times a week. I have asked the patient to place her multivitamin near her toothbrush so that she will remember to take it on a more frequent basis. The patient will follow- up with me again in 4 weeks timeframe. Assessment & Plan (04/10/2023 4:18 PM EST): This is a 42-year-old woman with a history of laparoscopic removal of gastric band conversion to sleeve gastrectomy who has gained a significant mount of weight back and has developed a hiatal hernia that is causing her significant reflux. The patient was in the process of losing some weight prior to hiatal hernia repair to hopefully increase the risk that the hiatal hernia repair would not recur postoperatively. Patient has some difficulty getting the weight off. She needs to lose about another 10 pounds to get down to about 159 pounds before we would plan to repair her hiatal hernia. I have placed the patient on the eating plan and it appears that she is eating too frequently. She is eating about every 2 hours. I have asked her to consume for total meals 2 protein meal replacements and 2 meals of protein and vegetables and one half carbohydrate per day. She should add resistance training to her cardiovascular exercise of walking on the treadmill 3 times per week. She is drinking plenty of water she will continue this. She will follow-up with me again in 4 weeks timeframe. She will continue current medications as reviewed. She is not stable and is considered obese. Assessment & Plan (02/27/2023 10:28 AM EST): This is a 42-year-old woman with a history of removal of gastric band conversion to sleeve gastrectomy who gained back a significant amount of weight and now has a hiatal hernia and reflux. She has lost about 6 pounds since I saw her last and reports her reflux is improved. She is drinking 3 protein shakes a day and doing 1 meal of protein and vegetables and this is working well for her. She feels better. She will start the bariatric patch for her bariatric supplementation. In addition to her exercise. She will increase her formalized exercise. Of asked her to try to institute getting 10,000 steps a day she will follow-up with me again in the office in 4 weeks. She is not stable and is considered obese. Assessment & Plan (01/23/2023 11:08 AM EST): This is a 42-year-old woman who has gained significant amount of weight after having laparoscopic sleeve gastrectomy about 8 years ago. The patient was seen by me about 3 weeks ago and placed on the eating plan and exercise plan which she has not started. The patient is still skipping meals not drinking enough water and was not exercising until this week. The patient will continue to walk for exercise, increase her water intake to at least 64 ounces of water daily, I have reviewed the eating plan again and told the patient to avoid skipping meals. She will have a protein shake at 9 AM and at 6 PM and have her 2 meals in the center of the day as she has some difficulty with eating in the morning in the evening secondary to her hiatal hernia. Patient will follow-up with me again in 4 weeks timeframe. She is not stable and is considered obese. Hiatal hernia 12/26/2022 Assessment & Plan (12/26/2022 3:43 PM EDT): This is a 42-year-old woman who has a history of laparoscopic removal of gastric band and conversion to sleeve gastrectomy for slipped gastric band in 2016 with me. We performed a hiatal hernia repair at the same time. Patient gained significant amount of weight following that procedure and has gained close to 50 to 60 pounds since her lowest weight. The patient reports having epigastric discomfort and reflux for which she is taking omeprazole 40 mg twice daily and is still having reflux. She reports she was eating a significant amount of mint candies on a regular basis about a month ago and skipping meals and drinking a lot of coffee without significant water intake. She had what sounds like a barium swallow at [facility] and we have the written results but no imaging. 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 The patient will obtain the disc with the imaging so that I can review them. The patient has a recurrence of her hiatal hernia given the large amount of weight she has gained. She has a BMI of almost 35 which would put her at increased risk for immediate failure of the hiatal hernia repair if we were to repair her hernia. I have placed the patient on the eating plan with 2 meal replacements per day at 9 AM and 3 PM and 2 meals of 2 to 4 ounces of protein with 3 to 4 ounces of vegetables and 1/2 cup of carbohydrate once daily. The patient will follow the eating plan and increase her water intake to 64 ounces of water on a daily basis. She was asked to do 30 to 40 minutes of cardiovascular exercise 3-4 times weekly. She will see the dietitian in 2 weeks and follow-up with me again in 4 weeks timeframe. We will see if her reflux symptoms are improved with this better eating plan. Have asked her to also avoid eating for 2 to 3 hours before bed. I have also asked her to avoid certain food choices that increase reflux such as citrus fruits, citric acid, tomato-based food, caffeine, chocolate, spicy foods. I spent 64 minutes with this patient which also included documentation. I personally reviewed all of her records from [facility] including the recent endoscopy that she had a couple of weeks ago all the biopsies from the endoscopy and the written report from the barium swallow. Encounters Date Type Department Care Team Description 09/02/2024 7:08 AM EDT - 09/02/2024 11:59 PM EDT Hospital Encounter [facility] [place], [facility] Medicine - [address] [address] Irlanda Kilgore MD Discharge Disposition: Home or Self Care from Last 3 Months Family History Medical History Relation Comments Lung cancer Mother Relation Status Comments Brother 1 Alive Brother 2 Alive Brother 3 Alive Father Mother Sister Alive Social History Tobacco Use Types Packs/Day Years Used Date Smoking Tobacco: Never Smokeless Tobacco: Never Tobacco Cessation:Counseling Given: Not Answered Alcohol Use Standard Drinks/Week Comments Never 0 [...] file Not on file Not on file Last Filed Vital Signs Vital Sign Reading Time Taken Comments Blood Pressure 96/62 07/19/2024 9:00 AM EDT Pulse 74 07/19/2024 9:00 AM EDT Temperature 36.6 C (97.8 F) 07/19/2024 9:00 AM EDT Respiratory Rate 16 05/08/2024 3:15 AM EDT Oxygen Saturation 99% 07/19/2024 9:00 AM EDT Inhaled Oxygen Concentration - - Weight 56.5 kg (124 lb 9.6 oz) 07/19/2024 9:00 A M EDT Height 149.9 cm (4' 11.02 ) 07/19/2024 9:00 AM E DT Body Mass Index 25.15 07/19/2024 9:00 AM EDT Plan of Treatment Upcoming Encounters Date Type Department Care Team (Late st Contact Info) Description 01/20/2025 9:00 AM EST Office Visit [facility] [address] [place] [address] Irlanda Kilgore MD [address] [facility], 2nd [place] [address] [email or web address] Health Maintenance Due Date Last Done Comments Adult Td,Tdap Booster 1978 DEPRESSION SCREENING 1990 HEPATITIS C SCREENING 1996 HIV ONE-TIME SCREENING (18-65 YEARS) 1996 PAP SMEAR 10/19/1999 MAMMOGRAM 2018 COLOGUARD 10/19/2023 COLONOSCOPY 10/19/2023 COLORECTAL CANCER SCREENING 10/19/2023 FIT TEST 10/19/2023 FOBT 10/19/2023 SIGMOIDOSCOPY 10/19/2023 VIRTUAL COLONOSCOPY 10/19/2023 INFLUENZA VACCINE (#1) 2024 , 11/03/2021, 12/19/2020, Additional history exists COVID-19 VACCINE ( season) 2024 01/21/2023, 11/03/2021, 12/19/2020, Additional history exists SCREENING FOR DIABETES 05/08/2027 05/07/2024, 2023 LIPID PANEL 01/18/2029 01/19/2024 SMOKING STATUS SCREENING (Once After 26 Yrs) Completed 05/07/2024 HEPATITIS A VACCINES Aged Out No long er eligible based on patient's age to complete this topic HIB VACCINES Aged Out No longer eligi ble based on patient's age to complete this topic MENINGOCOCCAL VACCINES (ACWY) Aged Out No longer eligible based on patient's age to complete this topic MENINGOCOCCAL VACCINES (B) Aged Out N o longer eligible based on patient's age to complete this topic PNEUMOCOCCAL VACCINES (0-49 years) Aged Out No longer eligible based on patient's age to complete this topic Medical Devices Not on file Procedures Procedure Name Priority Date/Time Associated Diagnosis Comments NM CHOLESCINTIGRAPHY WITH PHARMACOLOGICAL INTERVENTION Routine 09/02/2024 10:13 AM EDT RUQ pain LIPID PANEL Routine 01/19/2024 4:11 PM EST Intestinal malabsorption following gastrectomy from Last 3 Months or Most Recently Relevant to Health Maintenance Results * NM Cholescintigraphy with Pharmacological Intervention (09/02/2024 10:13 AM EDT) Anatomical Region Laterality Modality Abdomen, Biliary Nuclear Medicin e 09/02/2024 10:2 6 AM EDT Impressions 09/02/2024 11:55 AM EDT Normal gallbladder filling, with normal gallbladder ejection. ATTESTATION: I, Dr. Gomez Cleary as teaching physician, have reviewed the images for this case and if necessary edited the report originally created by [employer]. Narrative 09/02/2024 11:55 AM EDT [place] CHOLESCINTIGRAPHY WITH PHARMACOLOGICAL INTERVENTION COMPARISON: US ABDOMEN LIMITED RIGHT UPPER QUADRANT TECHNIQUE: Following the intravenous injection of 3.2 mCi of technetium-99m mebrofenin, continuous imaging of the abdomen was performed for one hour. The patient then received 1 micrograms of sincalide as a slow infusion during 30 minutes, and imaging was continued. FINDINGS: There was normal uptake of tracer by the liver, with prompt excretion into bile ducts and bowel. The gallbladder filled normally. During the 30 minute sincalide infusion that began approximately one hour after tracer injection, the gallbladder ejection fraction was 93%. Using this infusion technique, a published multicenter trial of 60 normal volunteers aged 20-62, found a mean ejection fraction was 71%, however, the population distribution of ejection fraction was non-Gaussian and skewed to lower values. 95% of normal subjects had an ejection fraction of more than 16%, while 99% of normal subjects had an ejection fraction of more than 8%. Procedure Note Gomez Cleary MD - 09/02/2024 NM CHOLESCINTIGRAPHY WITH PHARMACOLOGICAL INTERVENTION COMPARISON: US ABDOMEN LIMITED RIGHT UPPER QUADRANT TECHNIQUE: Following the intravenous injection of 3.2 mCi oftechnetium-99m mebrofenin, continuous imaging of the abdomen was performedfor one hour. The patient then received 1 micrograms of sincalide as aslow infusion during 30 minutes, and imaging was continued. FINDINGS: There was normal uptake of tracer by the liver, with prompt excretion intobile ducts and bowel. The gallbladder filled normally. During the 30 minute sincalide infusion that began approximately one hourafter tracer injection, the gallbladder ejection fraction was 93%. Using this infusion technique, a published multicenter trial of 60 normalvolunteers aged 20-62, found a mean ejection fraction was 71%, however,the population distribution of ejection fraction was non-Gaussian andskewed to lower values. 95% of normal subjects had an ejection fraction ofmore than 16%, while 99% of normal subjects had an ejection fraction ofmore than 8%. IMPRESSION: Normal gallbladder filling, with normal gallbladder ejection. ATTESTATION: I, Dr. Gomez Cleary as teaching physician, have reviewedthe images for this case and if necessary edited the report originallycreated by [employer]. us Irlanda Kilgore MD IMG NM ABDOMEN Final Resu lt * (ABNORMAL) Lipid panel (01/19/2024 4:11 PM EST) HDL 45 mg/dL [facility] Comment: Interpretation <40 mg/dL: Low HDL cholesterol (major risk factor for CHD) Greater than or equal to 60 mg/dL: High HDL cholesterol ( negative risk factor for CHD) HDL - cholesterol is affected by a number of factors, e.g. smoking, excerise, hormones, sex and age. CHOLESTEROL 204 0 - 240 mg/dL [facility] TRIGLYCERIDES 128 30 - 160 mg/dL [facility] LDL 133(H) 50 - 129 mg/dL [facility] Comment: LDL levels in terms of risk for coronary heart disease: <100 mg/dL: Optimal 100-129 mg/dL: Near or above optimal 130-159 mg/dL: Borderline high 160-189 mg/dL: High >190 mg/dL: Very High CARDIAC RISK RATIO 4.5(H) 3.3 - 4.4 [facility] Blood 01/19/2024 4:11 PM EST 01/19/2024 4:19 PM EST us Irlanda Kilgore MD LAB BLOOD ORDERABLES Final Result [facility] [address] [place] [address] from Last 3 Months or Most Recently Relevant to Health Maintenance Insurance [facility] ONE CARE MEDICARE REPLACEMENT [address] [address] ONE CARE MEDICARE REPLACEMENT Advance Directives For more information, please contact: [phone] (9AM - 5PM [facility], Thursday-Thursday) * Full Code (Latest Code Status on File) Date Activated Date Inactivated Comments 07/02/2023 6:05 AM Question Answer Comments Code Status Confirmed With: Patient Care Teams Yarding And Folding Machine Operator Relationship Specialty Start Date End Date Catrina Montanez MD [address] [place] [address] PCP - General Internal Medicine 12/26/22 Additional Source Comments The information contained in this document represents components of the legal health record. It is not the complete legal health record.[facility]
--- OUTSIDE RECORDS SUMMARY | 2024-11-21 09:48 | XMS_ITS | Clinical Summary ---
Author Organization [facility] ity Address [address] [place] [address] Care Team Providers Care Spray Gun Repairer Helper Name Role Phone Catrina Cruz MD Primary Care Provider Surgical History Surgery Date Site/Laterality Comments ESOPHAGOGASTRODUODENOSCOPY 07/28/07 PROCEDURE: MD EGD TRANSORAL BIOPSY SINGLE/MULTIPLE; COMMENT: r/o Christensen's esophagus-bx:No BE, mild chronic inflammation, Nl stomach-bx:mild reactive gastropathy, Nl duodenum-bx:mild increase in intraepithelial lymphocytes (not suggestive of celiac disease) COLONOSCOPY W/ BIOPSIES 07/28/07 PROCEDURE: MD COLONOSCOPY STOMA W/BIOPSY SINGLE/MULTIPLE; COMMENT: Up to cecum, regular preparation, normal colon exam. Random colon bx:prominent lymphoid aggregates, no specific pathologic change. HERNIA REPAIR PROCEDURE: MD REPAIR FIRST ABDOMINAL WALL HERNIA BREAST REDUCTION PROCEDURE: MD BREAST REDUCTION LAPAROSCOPIC GASTRIC BANDING PROCEDURE: LAP [...] Cervical Cancer Screening: P ap Smear 10/19/1999 Depression Screening 02/24/2024 COVID-19 Vaccine ( - 2023-2 5 season) 2024 Influenza Vaccine (#1) 2024 HIB Vaccines Aged Out No longer [...] 5 Years) and At-Risk Patients (6 to 49 Years) Aged Out No longer eligible b ased on patient's age to complete this topic RSV Immunization Patients Un olga lidia 20 months Aged Out No longer eligible b ased on patient's age to complete this topic Varicella Vaccines Aged Out No longer eligible based on patient's age to complete this topic Care Teams Spray Gun Repairer Helper Relationship Specialty Start Date End Date Catrina Cruz MD [address] [place] [address] , [address] [facility] D/B/A: Joce Makiativíctor In Internal Medicine BENJI Hobson PCP - General Internal Medicine 11/27/20
[2024-11-21 10:48] LABS: Alanine Aminotransferase 8 U/L (0-31); Albumin Level 4.5 g/dL (3.5-5.0); Alkaline Phosphatase 52 U/L (39-117); Anion Gap 10 (12-20); Aspartate Amino Transferase 16 U/L (5-31); Blood Urea Nitrogen 12 mg/dL (9-16); Calcium 9.7 mg/dL (8.4-10.2); Carbon Dioxide 25 mmol/L (22-29); Chloride 110 mmol/L (96-108); Cholesterol 176 mg/dL (<200); Estimated Glomerular Filt Rate > 60; HDL Cholesterol 44 mg/dL (>40); Iron 34 mcg/dL (30-160); Percent Iron Saturation 9 % (15-50); Potassium 3.6 mmol/L (3.3-5.1); Sodium 141 mmol/L (135-145); Total Iron Binding Capacity 367 mcg/dL (228-428); Total Protein 7.0 g/dL (6.5-8.0); Triglycerides 67 mg/dL (<150); Unsaturated Iron Binding 333 ug/dL
[2024-11-21 10:50] LABS: HIV Num 1 0.05 S/CO (0.00-0.99)
[2024-11-21 11:13] LABS: Folate 9.1 ng/mL (> or = 4.0); Vitamin B12 455 pg/mL (200-900)
== END 2024-11-21 08:03 | disposition home or self-care (01) ==
LOC: HO.LAB 08:02
PROVIDERS: PCP Internal Medicine; Visit Provider Internal Medicine
DX: Z00.00 Encounter for general adult medical examination without abnormal findings (principal); Z11.4 Encounter for screening for human immunodeficiency virus [HIV]; Z23 Encounter for immunization; R07.9 Chest pain, unspecified; E78.5 Hyperlipidemia, unspecified; D64.9 Anemia, unspecified; E66.3 Overweight; E53.8 Deficiency of other specified B group vitamins; E55.9 Vitamin D deficiency, unspecified; Z68.21 Body mass index [BMI] 21.0-21.9, adult; Z79.899 Other long term (current) drug therapy; F33.0 Major depressive disorder, recurrent, mild
CPT/HCPCS: 36415; 80053; 80061; 82306; 82607; 82746; 83540; 85025; 87389; 90471; 90715; 93005; 96127; 99212; 99396

== ENCOUNTER 2024-11-21 08:02 | Outpatient (AMB) | payer OTHER, SELFPAY ==
--- NOTE | 2024-11-21 08:14 | A.OFFPC_ITS ---
Vital Signs 11/21/24 08:16 Height 4 ft 11 in Weight 106 lb 6 oz BMI 21.5 BP 90/62 Blood Pressure Location Lt brachial Position Sitting Pulse 86 Pulse Source Pulse Oximeter Temp 97.1 F Temp Source Temporal Artery Scan Pulse Oximetry (%) 97 Oxygen Delivery Method Room Air Intake Visit Reasons: Annual Exam- A1C needed Intake Note: Patient is here today for a physical. Network Architect Required: No Learning Officer: Present Accompanied by: Spouse Allergies No Known Allergies Allergy (Verified 11/21/24 08:35) Medication List - Last Reconciled 11/21/24 by Catrina Cruz MD betamethasone valerate 0.1% 1 appl topical .twice weekly 90 days bupropion HCl XL 150 mg PO QAM 90 days diphenhydramine HCl (Benadryl) 25 mg PO BID PRN hydroxyzine pamoate 25 mg PO BEDTIME PRN 90 days medroxyprogesterone (Provera) 10 mg PO DAILY 10 days omeprazole 40 mg (2 x 20 mg) PO DAILY thiamine HCl (vitamin B1) 100 mg PO DAILY tirzepatide (weight loss) 15 mg (0.5 mL) subcut QWEEK 4 weeks valacyclovir (Valtrex) 500 mg PO BID Tobacco use date assessed: 11/21/24 Dental Screening Dental Screen Date: 11/21/24 Did you have a dental visit in the last 12 months?: Yes Did you have a dental problem in the last 6 months where you did not have access to dental care?: No Was dental information given to patient?: Patient has dentist HPI HPI Comments History of Present Illness Details The patient is a 44-year-old female presenting with an annual physical examination and preventative care screening. She underwent a mammography in January of the previous year and has been receiving regular sonograms every three months for monitoring purposes. The patient had a Pap smear and biopsy earlier this year, and a hysterectomy will be performed on December 08. She is currently taking bupropion, diphenhydramine, and omeprazole for acid reflux, and has been advised to discontinue Provera by her pharmacoepidemiologist. Her surgical history includes right breast lumpectomy, breast reduction, hernia repair, tonsillectomy, section, abdominoplasty, laparoscopic adjustable gastric banding, and subsequent removal, followed by sleeve gastrectomy in 2015. She has not undergone a colonoscopy but has had an endoscopy. Family history reveals her father from [facility] and had Lewy body dementia, Parkinson's disease, and a stroke, while her mother had lung cancer. There is no family history of colon cancer. The patient does not smoke or consume alcohol. Her last A1c test in September showed a result of 5%, indicating good glycemic control. Her BMI is currently 21, reflecting a healthy weight status. - Breast cancer screening with mammograp hy conducted in 2023. - Cervical cancer screening with Pap sme ar and biopsy performed earlier this year. - Colon cancer screening with Cologuard recommended due to lack of family history of colon cancer. - Cardiovascular assessment with electro cardiogram to rule out cardiac issues. [facility] Medical History Fibroid Hand pain Leg pain Right arm pain Scoliosis Left foot pain Hand numbness Skin lesions GERD (gastroesophageal reflux disease) Iron deficiency anemia due to chronic blood loss Class 1 obesity with body mass index (BMI) of 32.0 to 32.9 in adult Tonsillectomy planned Burning reflux Surgical History History of lumpectomy of right breast History of bilateral breast reduction surgery History of hernia repair History of tonsillectomy History of section H/O abdominoplasty Hx of breast reduction, elective History of gastric surgery LAP-BAND surgery status Tubal ligation status Family History Father Stroke Parkinsons disease Lewy body dementia Mother Lung cancer Maternal Grandmother Throat cancer Lung cancer Paternal Grandmother Stomach cancer Maternal Grandfather No problems noted. Paternal Grandfather No problems noted. Maternal Aunt Ovarian cancer Paternal Aunt Ovarian cancer Breast cancer Social History Housing: House Are you a primary daycare provider to a significant other at home: No Do you presently have visiting nurse or other home services: No Alcohol intake: never Patient Tobacco Use Status: Never used Tobacco e-Cigarette/Vaping Use: Never Used Second Hand Smoke Exposure: No service: No Current occupational status: disabled Cognitive needs: No Hearing needs: No Vision needs: Yes (glasses) Female Reproductive History Menstrual Age of Menarche: 6 Questionnaire PHQ-9 Over the last 2 weeks, how often have you been bothered by any of the following problems? 1. Little interest or pleasure in doing things: not at all 2. Feeling down, depressed, or hopeless: not at all 3. Trouble falling or staying asleep, or sleeping too much: not at all 4. Feeling tired or having little energy: not at all 5. Poor appetite or overeating: not at all 6. Feeling bad about yourself - or that you are a failure or have let yourself or your family down: not at all 7. Trouble concentrating on things, such as reading the newspaper or watching television: not at all 8. Moving or speaking so slowly that other people could have noticed. Or the opposite - being so fidgety or restless that you have been moving around a lot more than usual: not at all 9. Thoughts that you would be better off or of hurting yourself in some way: not at all Total score: 0 Depression Screening Interpretation: Negative Depression Screening Done: Yes 15041 - PHQ-9 Billing: Yes Source: Developed by Drs. Gomez Grajeda, Dahlia Jerome, Juan Carlos Deluna and colleagues, with an educational jitendra from [employer]. Thrive Questionnaire Date Thrive assessed: 05/10/24 I am a: Patient What is your living situation today?: I choose not to answer this question Within the past 12 months, did the food you bought not last and you didn't have the money to get more?: I choose not to answer this question Within the past 12 months, did you worry whether your food would run out before you got money to buy more?: I choose not to answer this question Do you have trouble paying for medicines?: No Do you have trouble getting transportation to medical appointments?: No Do you have trouble paying your heating and electricity bill?: I choose not to answer this question Do you have trouble taking care of your child, family member or friend?: I choose not to answer this question Do you have trouble with day-to-day activities such as bathing, preparing meals, shopping, managing finances, etc.?: I choose not to answer this question Are you currently unemployed and looking for a job?: I choose not to answer this question Are you interested in more education?: I choose not to answer this question Please select the resources that you would like help with: None Currently or been in a relationship where the following occur: I choose not to answer THRIVE Score: 0 AUDIT C Alcohol Use Questionnaire (AUDIT-C) 1. How often do you have a drink containing alcohol?: Never Total Score: 0 Score Reviewed/Action Taken: No GARY-7 AMB Questionnaire GARY-7 Date GARY - 7 assessed: 05/10/24 Feeling nervous, anxious, or on edge: 0 = Not at all Not being able to stop or control worryin = Not at all Worrying too much about different things: 0 = Not at all Trouble relaxin = Not at all Being so restless that it is hard to sit still: 0 = Not at all Becoming easily annoyed or irritable: 0 = Not at all Feeling afraid as if something awful might happen: 0 = Not at all Total GARY-7 score (0-4 normal; 5-9 mild; 10-14 moderate; 15-21 severe): 0 Source: Developed by Drs. Gomez Grajeda, Dahlia Jerome, Juan Carlos Deluna and colleagues, with an educational jitendra from [employer]. GARY-7 Assessment Billing GARY-7 Assessment Tool: GARY-7 Assessment 04850 Review of Systems Const All systems reviewed & are unremarkable except as noted in HPI and below Card Denies chest pain at rest, Denies chest pain with activity, Denies edema, Denies irregular heart rhythm, Denies claudication, Denies dyspnea, Denies dyspnea on exertion, Denies orthopnea, Denies paroxysmal nocturnal dyspnea and Denies slow heart rate Resp Denies cough, Denies dyspnea and Denies dyspnea on exertion GI Denies abdominal pain, Denies change in bowel habits, Denies excessive flatus, Denies nausea and Denies vomiting Denies urinary incontinence, Denies urinary hesitancy and Denies urinary urgency Physical exam (Primary Care) Vital Signs: Last Vital Signs Temp 97.1 F 11/21/24 08:16 Pulse 86 11/21/24 08:16 BP 90/62 11/21/24 08:16 Pulse Ox 97 11/21/24 08:16 Oxygen Delivery Method Room Air 11/21/24 08:16 BMI result Body Mass Index 21.5 Tobacco/Smoking Status: Tobacco use Status Tobacco use date assessed 11/21/24 11/21/24 08:25 Patient Tobacco Use Status Never used Tobacco 11/21/24 08:25 e-Cigarette/Vaping Use Never Used 11/21/24 08:25 PHQ-9: PHQ-9 Score PHQ-9: Total score 0 11/21/24 08:38 Depression Screening Interpretation: Negative Thrive Assessment: Date of Thrive Assessment Date Thrive assessed 05/10/24 11/21/24 08:25 Currently or been in a relationship where the following occur: I choose not to answer [facility] Head: Yes normal to inspection, Yes normocephalic and Yes atraumatic Ears: external ears normal Eyes General: appearance normal, both eyes and all related structures Eyelids: Yes eyelids normal Conjunctivae: conjunctivae normal Neck Neck: Yes normal visual inspection and Yes supple Resp Effort & Inspection: normal respiratory effort Auscultation: clear to auscultation bilaterally Cardio Jugular venous distension: no JVD Rate: regular rate Rhythm: regular rhythm Heart sounds: S1 normal heart sound present and S2 normal heart sound present GI Inspection: Yes normal to inspection Palpation (GI): Soft to palpation and nontender Auscultation: normal bowel sounds Skin General skin exam: no rashes or lesions noted Neuro General: no focal motor deficits Extrem General: Yes full ROM Psych Appearance: grossly normal Immunizations Boostrix Tdap 2.5 Lf unit-8 mcg-5 Lf/0.5 mL intramuscular syringe Performing Provider: Catrina Cruz MD [facility] Administered by: EDEL Tillman on 11/21/24 08:54 Dose Route Admin Location Dispensed Lot Number Expiration Date [facility] [employer] 0.5 mL IM Left Deltoid 0.5 mL [id number] 01/12/27 [id number] Practice Management e-Tools Total Dispensed Waste 0.5 mL 0 % VIS Given Date VIS Provided VIS Publication Date 11/21/24 Single Vaccine 20 Eligibility Eligibility Date Funding Source Not [facility] Eligible 11/21/24 Private Coding Level of Care Code Est Pt Level 3 (80770) Est Pt Prev Care 40-64y(88143) Diagnoses Physical exam Z00.00 Mild recurrent major depression F33.0 Chest pain R07.9 Additional Codes PHQ-9 - 94496 - PHQ-9 Billing: Yes ([id number]) GARY-7 Assessment Billing - GARY-7 Assessment Tool: GARY-7 Assessment 29287 ([id number]) Time Spent (min) 33 Assessment & Plan Assessment & Plan (1) Physical exam: Code(s): Z00.00 - Encounter for general adult medical examination without abnormal findings Category: Medical (2) Mild recurrent major depression: Code(s): F33.0 - Major depressive disorder, recurrent, mild Category: Medical (3) Chest pain: Code(s): R07.9 - Chest pain, unspecified Category: Medical Plan Plan Patient was informed and verbally consented to the use of an ambient scribe for clinic note documentation during this visit. 1. Encounter for general adult medical examination without abnormal findings Z00.00 The patient underwent a mammography in January of the previous year as part of routine breast cancer screening. Colon cancer screening with Cologuard is recommended due to the absence of a family history of colon cancer. Orders: Orders Vitamin B12 and Folate Today E53.8 - Deficiency of other specified B group vitamins Vitamin D 25-OH Total Today E55.9 - Vitamin D deficiency, unspecified IRON PROFILE Today D64.9 - Anemia, unspecified Lipid Panel Today E78.5 - Hyperlipidemia, unspecified TDaP Immunization Today Z23 - Encounter for immunization Complete Blood Count Auto Diff Today D64.9 - Anemia, unspecified HIV Ab/Ag Today Z11.4 - Encounter for screening for human immunodeficiency virus [HIV] Comprehensive [place]. Panel Fast Today Z00.00 - Encounter for general adult medical examination without abnormal findings ECG 12 lead EKG Today R07.9 - Chest pain, unspecified Referrals Cologuard Test Z12.11 - Encounter for screening for malignant neoplasm of colon, Z12.12 - Encounter for screening for malignant neoplasm of rectum Medications: Refilled thiamine HCl (vitamin B1) 100 mg PO DAILY 90 tabs 3RF
[2024-11-21 08:16] VITALS: BP 90/62; PULSE 86; TEMP 36.2; O2SAT 97; BMI 21.5
== END 2024-11-21 08:56 | disposition home or self-care (01) ==
LOC: HO.HMCH 08:02
PROVIDERS: PCP Internal Medicine; Visit Provider Internal Medicine
DX: Z00.00 Encounter for general adult medical examination without abnormal findings (principal); F33.0 Major depressive disorder, recurrent, mild; R07.9 Chest pain, unspecified; Z23 Encounter for immunization

== ENCOUNTER → 2024-11-21 09:11 | Outpatient (BNV) | payer OTHER, SELFPAY | PROVIDERS: PCP Internal Medicine; Visit Provider Internal Medicine | DX: R07.9 Chest pain, unspecified (principal) | CPT/HCPCS: 93010 ==